=== PATIENT | female | born 1945 | race Caucasian/White ===

== ENCOUNTER → 2021-04-06 13:40 | Outpatient (CLI) | payer MEDICARE, SELFPAY ==
--- NOTE | ~2021-04-06 | XR_ITS ---
XR lumbar spine 2-3V 04/06/2021 14:03 Indication: Low back pain Procedure: 3 views lumbar spine Comparison: No prior studies for comparison. Findings: There is significant loss of disc height at all lumbar levels with prominent marginal osteo phytes anteriorly at L1-2 and L2-3. There is advanced multilevel facet hypertrophy. There is grade 1 degenerative spondylolisthesis at L4-5. Mild levoscoliosis. No acute fracture or traumatic malalignme nt. Impression: 1: Severe lumbar spondylosis with levoscoliosis. Reviewed, dictated and finalized at location B. RAL NEUROLOGIST Impression: 1: Severe lumbar spondylosis with levoscoliosis.
== END ==
PROVIDERS: PCP Emergency Medicine; Visit Provider Emergency Medicine
DX: R29.898 Other symptoms and signs involving the musculoskeletal system (principal); M54.50 Low back pain, unspecified; M47.816 Spondylosis without myelopathy or radiculopathy, lumbar region; M41.86 Other forms of scoliosis, lumbar region
CPT/HCPCS: 72100

== ENCOUNTER → 2021-04-30 10:41 | Outpatient (CLI) | payer MEDICARE, SELFPAY ==
--- NOTE | ~2021-04-30 | MR_ITS ---
EXAMINATION: MR lumbar spine wo con DATE: 04/30/2021 11:14 INDICATION: Lumbar degenerative disc disease. Right-sided low back pain. TECHNIQUE: Magnetic resonance imaging (MRI) of the lumbar spine was performed without intravenous con trast. Sequences included sagittal T2-weighted FSE, sagittal T2-weighted FS FSE, sagittal T1-weighted FSE, and axial T2-weighted FSE. COMPARISON: Lumbar spine radiograph 04/06/2021 FINDINGS: There is 10 degrees levocurvature of lumbar spine. There is 3 mm retrolisthesis of L2 on L3 . Vertebral body heights are normal. There is severely decreased disc height at T12-L1, moderately de creased disc height at L1-L2, severely decreased disc height at L2-L3, mildly decreased disc height a t L3-L4, and severely decreased disc height at L4-L5 and L5-S1. The distal spinal cord signal intensi ty is normal. The conus medullaris is at L1-L2. The following disc levels are specifically discussed: T12-L1: The disc is bulging. There is mild bilateral facet joint osteoarthritis. There is no neural f oraminal stenosis. There is mild central canal stenosis. L1-L2: The disc is bulging. There is mild bilateral facet joint osteoarthritis. There is mild bilater al neural foraminal stenosis. There is mild central canal stenosis. L2-L3: The disc is bulging and has an annular fissure. There is mild bilateral facet joint osteoarthr itis. There is moderate bilateral neural foraminal stenosis. There is mild central canal stenosis. L3-L4: The disc is bulging and has an annular fissure. There is severe bilateral facet joint osteoart hritis. There is mild bilateral neural foraminal stenosis. There is mild central canal stenosis. L4-L5: The disc is bulging and has an annular fissure. There is severe bilateral facet joint osteoart hritis. There is mild bilateral neural foraminal stenosis. There is mild central canal stenosis. L5-S1: The disc is bulging and has an annular fissure. There is severe bilateral facet joint osteoart hritis. There is moderate bilateral neural foraminal stenosis. There is mild central canal stenosis. IMPRESSION: 1. Severe lumbar spondylosis. 2. Lumbar levoscoliosis. Reviewed, dictated and finalized at location A.
== END ==
PROVIDERS: PCP Emergency Medicine; Visit Provider Nurse Practitioner Family
DX: M51.36 Other intervertebral disc degeneration, lumbar region (principal); M47.816 Spondylosis without myelopathy or radiculopathy, lumbar region; M41.86 Other forms of scoliosis, lumbar region
CPT/HCPCS: 72148

== ENCOUNTER 2021-05-17 14:30 | Outpatient (RCR) | payer MEDICARE, SELFPAY ==
--- NOTE | 2021-04-20 16:59 | PTOPEVAL ---
PHYSICAL THERAPY INITIAL EVALUATION. Thank you for referring Carmina Vasquez to [facility] [place] [facility] The patient is scheduled to be seen for therapy? 2x/week for 4 weeks. Please review, sign, date and return this plan of care JACKELINE. I agree with and certify that the following plan of care is medically necessary. Referring Physician Date Attending Provider: Blair Galo MD *PT Outpatient Evaluation Start: 04/20/21 Evaluation Information Diagnosis lumbar spondylolysis Onset chronic Subjective Information Pt states while her back does Query Text:As Reported By Patient/ hurt, her balance has causer Family her more difficulty while walking. She states she fell 02/10/21 and her back and balance has been bothering her more since then. She states while she is walking she will feel very weak, if she stops to rest she can prevent her legs from buckling but states if she continues that her legs will start to shake and give out on her. She has since noticed the warning signs before she falls and is able to find a chair before she falls. She states the feeling in her legs is hallow . Pt states she has fallen 2 times in the last 6 months. She states she does not feel dizzy or off balance. Pain Assessment Right Lower Back Reported Pain Level 4 Pain Description Aching,Dull Pain Frequency Chronic Lowest Pain Intensity 0 Greatest Pain Intensity 8 Pain Aggravating Factors Bending,Lifting,Walking Lumbar ROM Lumbar Flexion Active Floor Lumbar Extension (0-40) 25 Lateral Flexion Finger tips to lateral knee Query Text:Active Hands to: joint bilaterally Lateral Rotation Right (0-45) 30 Lateral Rotation Left (0-45) 40 Lumbar ROM 75% of Normal Lower Extremity Range of Motion General Lower Extremity Range of Motion WFL/Left,WFL/Right Lower Extremity Muscle Strength Testing Gross Lower Extremity Strength L LE grossly 4+/5 R Hip 4/5 R knee 3+/5 R ankle 4-/5 L tandem: 30s
--- NOTE | 2021-05-17 16:18 | PTOPEVAL ---
PHYSICAL THERAPY PROGRESS REPORT AND DISCHARGE NOTE. Thank you for referring Carmina Vasquez to [facility].? The patient is to be discharged from skilled physical therapy services at this time. Please review, sign, date and return this plan of care JACKELINE. I agree with and certify that the following plan of care is medically necessary. Referring Physician Date Attending Provider: Blair Galo MD Evaluation Information Diagnosis lumbar spondylolysis Onset chronic Subjective Information Pt states she has a back brace Query Text:As Reported By Patient/ pain management gave her and Family she has been wearing this on and off every 2 hours. Pt states she feels the most weakness in her legs when she gets out of a car, she states standing for a moment prior to walking helps to relieve this feeling. Pt reports she does not trust her knees initially when standing, but this odd sensation passes quickly. Pt reports improved focus on her safety and keeping her core tight. Pain Assessment Right Lower Back Reported Pain Level 0 Greatest Pain Intensity 4 Lumbar ROM Lumbar Flexion Active Floor Lumbar Extension (0-40) 35 Lateral Flexion Finger tips to lateral knee Query Text:Active Hands to: joint bilaterally Lateral Rotation Right (0-45) 45 Lateral Rotation Left (0-45) 45 Lumbar ROM 75% of Normal Lower Extremity Range of Motion General Lower Extremity Range of Motion WFL/Left,WFL/Right Lower Extremity Muscle Strength Testing Gross Lower Extremity Strength B LE grossly 4+/5 L tandem: 30s R tandem: 30s L SLS: 14s R SLS: 4s Balance Assessment Buchanan Balance Assessment [place]CHA[place]N Balance Evaluation Total Score (/56 52/56 Gait Assessment 2 Minute Walk Total Distance Walked (feet) 345 2 Minute Walk Gait Speed Score (feet/sec 2.87 2 Minute Walk Test Comments Pt states she has started walking slower than usual as she has increased her focus on her core stability and posture PT Clinical Summary Carmina presents to therapy today for her progress report following 8 visits of therapy to treat
== END 2021-05-18 15:13 | disposition home or self-care (01) ==
LOC: ANHPT 14:30
PROVIDERS: PCP Emergency Medicine; Referring Provider Emergency Medicine; Visit Provider Emergency Medicine
DX: M43.06 Spondylolysis, lumbar region (principal); M47.816 Spondylosis without myelopathy or radiculopathy, lumbar region
CPT/HCPCS: 97110; 97112; 97161; 97530

== ENCOUNTER 2023-04-26 08:33 | Inpatient (IN) | payer MEDICARE, SELFPAY ==
[2023-04-26] VITALS (16 sets, daily range): BP systolic 107–147; BP diastolic 44–63; PULSE 64–83; RESP 14–19; TEMP 36.9–38.2; O2SAT 96–99; BMI 19.9
--- NOTE | ~2023-04-26 | XR_ITS ---
EXAMINATION: XR chest 2V DATE: 04/26/2023 09:24 INDICATION: Weakness. Nausea. TECHNIQUE: Frontal and lateral views of the chest were obtained on 3 radiographs. COMPARISON: None. FINDINGS: There is no pneumonia, pleural effusion, or pneumothorax. The heart size is normal. There i s mild pectus excavatum. IMPRESSION: 1. No acute cardiopulmonary disease. Reviewed, dictated and finalized at location A.
--- NOTE | 2023-04-26 08:43 | ECG_ITS ---
Measurements Intervals [place] Rate: 70 P: 69 LA: 146 QRS: -16 QRSD: 98 T: 118 QT: 438 QTc: 475 Interpretive Statements SINUS RHYTHM POSSIBLE LEFT ATRIAL ENLARGEMENT INCOMPLETE RIGHT BUNDLE BRANCH BLOCK\ CONSIDER INFERIOR INFARCT, AGE INDETERMINATE ST-T WAVE ABNORMALITY IN ANTEROLAT/HIGH LAT LEADS- CONSIDER ISCHEMIA ABNORMAL ECG NO PREVIOUS ECG AVAILABLE FOR COMPARISON Electronically Signed On 04-26-2023 9:07:30 CDT by Yovanny Terry D.O.
[2023-04-26 09:04] LABS: Hematocrit 38.4 % (37.0-47.0); Hemoglobin 12.9 g/dL (12.0-15.0); Mean Corpuscular HGB Conc 33.6 g/dl (32-36); Mean Corpuscular Hemoglobin 32.1 pg (26-34); Mean Corpuscular Volume 95.5 fl (80-100); Mean Platelet Volume 10.2 fl (7.4-10.4); Platelet Count Result 239 k/mm3 (150-375); Red Blood Count 4.02 M/mm3 (4.2-5.4); Red Cell Distribution Width 14.6 % (11.5-14.5)
[2023-04-26 09:15] LABS: Appearance Urine Clear (Clear); Bacteria Urine None Seen /hpf; Bilirubin Urine Negative (Negative); Blood Urine Negative (Negative); Color Urine Yellow (Yellow); Glucose Urine UA Negative (Negative); Ketones Urine Negative (Negative); Leukocyte Esterase Ur Negative LEU/UL (Negative); Nitrate Urine Negative (Negative); Protein Urine 1+ mg/dL (Negative); Specific Grav Ur 1.011 (1.001-1.035); Squamous Epithelial Cell Urine None Seen /hpf (Few); Urobilinogen Urine 0.2 mg/dL (<2.0); WBC Urine 0-5 /hpf (0-3)
[2023-04-26 09:17] LABS: Alanine Aminotransferase 465 U/L (6-35); Albumin Level 3.4 g/dL (3.5-5.1); Alkaline Phosphatase 108 U/L (38-126); Anion Gap 3 mmol/L (8-16); Bilirubin,Total 0.7 mg/dL (0.2-1.3); Blood Urea Nitrogen 16 mg/dL (7-17); Calcium 8.4 mg/dL (8.4-10.2); Carbon Dioxide 26 mmol/L (22-30); Chloride 105 mmol/L (98-107); Estimated CRCL calculation 32 ml/min; Estimated Glomerular Filt Rate 54; Glucose 107 mg/dL (65-110); Potassium 3.4 mmol/L (3.4-5.0); Sodium 134 mmol/L (137-145)
[2023-04-26 09:21] LABS: Band Neutrophils Percent 9 % (0-6); Lymphocytes Absolute Manual 1.17 K/mm3 (1.1-4.5); Monocytes Absolute Manual 0.26 K/mm3 (0.1-0.90); Monocytes Percent Manual 2 % (3-9); Neutrophils Absolute Manual 11.57 K/mm3 (1.7-7.2); Neutrophils Percent Manual 80 % (46-73); Platelet Estimate Adequate (Adequate); Schistocytes None Seen; Total Cells Counted 100
[2023-04-26 09:28] LABS: Prothrombin Time 13.1 Seconds (11.1-14.7)
[2023-04-26 09:29] LABS: Partial Thromboplastin Time 24.5 Seconds (22.3-36.8)
[2023-04-26 09:38] LABS: Aspartate Amino Transferase 948 U/L (14-36)
[2023-04-26 09:40] LABS: Influenza A QL RT-PCR Negative (Negative); Influenza B QL RT-PCR Negative (Negative); RSV RNA, RT-PCR Negative (Negative); SARS-CoV-2 RNA PCR Negative (Negative)
[2023-04-26 09:41] LABS: Add Urine Microscopic? YES
[2023-04-26 09:50] LABS: NT Pro B Type Natriuretic Pept 2430 pg/mL (19.9-100); Troponin I 0.369 ng/mL (0.000-0.034)
--- NOTE | 2023-04-26 10:15 | ED.NAVMDI ---
HPI - Nausea/Vomiting/Diarrhea General Chief complaint: Nausea/Vomiting/Diarrhea Stated complaint: N/V Time Seen by Provider: 04/26/23 08:46 History of Present Illness HPI Narrative: Patient is a 77-year-old female who presents ER with sudden onset weakness over last 2 days. Associated with some nausea and vomiting that occurred throughout the night. No fevers but does have chills and fatigue. Denies chest pain or chest heaviness. She is without any shortness of breath. Patient does report that over last month or so she will get some weakness in her legs several cause her to fall. No recent injury. Related Data Allergies Allergy/AdvReac Type Severity Reaction Status Date / Time Ejvejye-JOT-BdL Reductase Allergy Unknown unknown Verified 01/17/23 11:23 Inhibitor [Kqkfvwd-Pip-Msu Reductase Inhibitor] Review of Systems Review of Systems: All systems reviewed & are unremarkable except as noted in HPI and below Constitutional: Constitutional: Reports chills, Reports fatigue, Denies fever(s) and Reports weakness ENT: Reports system reviewed and no additional complaints, except as documented Cardiovascular: Cardiovascular: Reports no additional cardiovascular complaints Respiratory: Respiratory: Reports no additional respiratory complaints Genitourinary: Genitourinary: Reports no additional female genitourinary complaints [facility] Past Medical History Medical History Adult hypothyroidism Bilateral leg cramps Chronic back pain Depression DM w/o complication type II Elevated blood pressure reading without diagnosis of hypertension Fatigue Hyperglycemia Other and unspecified hyperlipidemia Other screening mammogram Screening cholesterol level Vitamin D deficiency Family History Family History Mother Cerebrovascular accident Father Acute myocardial infarction Social History Social History Years smoked: 60 Smoking status: Current every day smoker Tobacco type: cigarettes Second hand tobacco smoke exposure: Yes Smoking end date: 02/13/11 Alcohol intake: current Drinks per week: 2 Substance use: never Substance use type: does not use Do You Feel Safe in your Home?: Yes Lack of Transportation: YES Lack of Food: Never True Current Housing: I Have Housing Concerned About Future Housing: No Difficulty Paying Gas/Electric Bills: No Difficulty Paying for Meds: No Currently Unemployed: No Education: Bachelor's Degree Difficulty w/ Childcare or Family Care: No Spiritual care concerns: No Exam Narrative: GENERAL: Well-appearing, well-nourished, and in no acute distress. HEAD: Normocephalic, atraumatic. ENT: Mucous membranes moist. NECK: Supple. CHEST: Clear to auscultation. No respiratory distress. HEART: Regular rate and rhythm. Harsh murmur heard in all quadrants. Normal peripheral pulses. ABDOMEN: Soft, nontender, nondistended. EXTREMITIES: Normal range of motion. No edema. SKIN: Warm, dry, no rash. NEURO: Alert and oriented x3. PSYCH: Normal mood and affect. Course Course Emergency Course: Patient with abnormal EKG and elevated troponin. Discussed non ST-elevation NH diagnosis with patient and family. Additionally, I have reviewed the labs and EKG with Cardiology. Patient will be started on heparin and also be admitted to the hospitalist service. Mild transaminitis which may be reflective of right-sided heart failure. After discussing this with the cardiology it was recommended the temp some diuresis especially with elevated BNP. Vital Signs Vital signs: Vital Signs Temperature 100.0 F H 04/26/23 08:40 Pulse Rate 73 04/26/23 08:40 Respiratory Rate 16 04/26/23 08:40 Blood Pressure 130/57 L 04/26/23 08:40 Pulse Oximetry 97 04/26/23 08:40 Oxygen Delivery
[2023-04-26] MEDS: FUROSEMIDE INJ 40 MG/4 ML VIAL IV PUSH (11:07)
[2023-04-26] MEDS: HEPARIN SODIUM 5,000 UNITS/ML VIAL 3000 UNITS IV PUSH (11:09)
[2023-04-26] MEDS: ASPIRIN 81 MG CHEWABLE TABLET 324 MG PO (11:10)
[2023-04-26] MEDS: HEPARIN SOD/D5W 100 UNITS/ML 25,000 UNITS/250 ML BAG 6 UNITS IV CONT (11:13)
--- NOTE | 2023-04-26 12:01 | ECG_ITS ---
Measurements Intervals [place] Rate: 71 P: 68 VT: 155 QRS: -18 QRSD: 94 T: 125 QT: 432 QTc: 472 Interpretive Statements SINUS RHYTHM POSSIBLE LEFT ATRIAL ENLARGEMENT INCOMPLETE RIGHT BUNDLE BRANCH BLOCK INFERIOR INFARCT, AGE INDETERMINATE ST-T WAVE ABNORMALITY IN ANTEROLAT/HIGH LAT LEADS- CONSIDER ISCHEMIA ABNORMAL ECG COMPARED TO ECG 04/26/2023 08:45:53 NO SIGNIFICANT CHANGES Electronically Signed On 04-26-2023 12:21:53 CDT by Yovanny Terry D.O.
[2023-04-26] MEDS: ACETAMINOPHEN 325 MG TABLET 650 MG PO (12:05)
--- NOTE | 2023-04-26 12:30 | PC.NURSE ---
This patient, Carmina Vasquez, was received from ED on 04/26/23 at 1225. Patient/family oriented to unit policies and routines, Patient belongings secured in patient room cabinet
--- NOTE | 2023-04-26 13:03 | PM.IMHP ---
H&P: HPI History of Present Illness Date/Time: 04/26/23 13:03 Chief Complaint: N/V, Weakness Narrative: 77 y/o F presents here with N/V and weakness with PMH of hypothyroidism, depression, DM2, elevated BP without HTN diagnosis, and vitamin d deficiency. Patient presents here from home? for evaluation of nausea, vomiting, and weakness. Initially developed lower extremity weakness around 10:30 pm last night (04/24). Patient then elda got up to use the restroom when her legs again gave out and she sustained a ground-level fall. No injuries post-fall, no LOC, no syncope. Patient was then unable to sleep after the fall. Patient has chronic leg cramping, that historically occurs more so at night, that started after the fall and prevented her from sleeping. When patient got up in the morning, she fell again when walking to the bathroom. Denies any chest pain, palpitations, syncope, sense of doom, fatigue, diaphoresis, or GERD. Patient later drank water that morning and experiencing nausea and vomiting. Denies RUQ pain, LUQ pain, and upper back pain. Patient drinks a small splash of Mickie's in her coffee daily. Initial VS at presentation: 100.0 F, HR 73, RR 16, 130/57, 97% on RA. ED workup showed: WBC 13, no anemia, creatinine 1.0, AST 948, ALT 465, troponin 0.369 -> 8.99, BNP 2430, UA unremarkable, viral PCR negative, and CXR unremarkable. Review of Systems Review of Systems: All systems reviewed & are unremarkable except as noted in HPI and below [facility] Past Medical History Medical History Adult hypothyroidism Bilateral leg cramps Chronic back pain Depression DM w/o complication type II Elevated blood pressure reading without diagnosis of hypertension Fatigue Hyperglycemia Other and unspecified hyperlipidemia Other screening mammogram Screening cholesterol level Vitamin D deficiency Family History Family History Mother Cerebrovascular accident Father Acute myocardial infarction Social History Social History Years smoked: 60 Smoking status: Current every day smoker Tobacco type: cigarettes Second hand tobacco smoke exposure: Yes Smoking end date: 02/13/11 Alcohol intake: current Drinks per week: 2 Substance use: never Substance use type: does not use Do You Feel Safe in your Home?: Yes Lack of Transportation: YES Lack of Food: Never True Current Housing: I Have Housing Concerned About Future Housing: No Difficulty Paying Gas/Electric Bills: No Difficulty Paying for Meds: No Currently Unemployed: No Education: Bachelor's Degree Difficulty w/ Childcare or Family Care: No Spiritual care concerns: No Meds Home Medications and Allergies Home Medications Medication Instructions Recorded Confirmed Type levothyroxine 100 mcg tablet See Rx Instructions .Route 01/10/23 04/26/23 Rx .COMPLEX #90 tabs sertraline 50 mg tablet See Rx Instructions .Route 01/10/23 04/26/23 Rx .COMPLEX #90 tabs Allergies Allergy/AdvReac Type Severity Reaction Status Date / Time Fbjqtgs-YPY-BcF Reductase Allergy Unknown unknown Verified 01/17/23 11:23 Inhibitor [Bijrfno-Sgl-Yui Reductase Inhibitor] Vital Signs Vital Signs - 24 hr 04/26/23 08:40 04/26/23 08:59 04/26/23 09:01 Temperature 100.0 F H Pulse Rate 73 80 75 Respiratory Rate 16 Blood Pressure 130/57 L 124/53 L 118/56 L Pulse Oximetry 97 Oxygen Delivery Room Air 04/26/23 09:01 04/26/23 09:00 04/26/23 12:05 Temperature 100.8 F H Pulse Rate 83 73 Respiratory Rate 16 Blood Pressure 111/51 L 118/56 L Pulse Oximetry 96 Oxygen Delivery 04/26/23 09:30 04/26/23 10:30 04/26/23 11:30 Temperature 100.6 F H 100.3 F H Pulse Rate 64 65 66 Respiratory Rate 16 16 16 Blood Pressure 120/57 L 124/58 L 107/44 L Pulse Oxim
[2023-04-26 13:50] LABS: Lipase 69 U/L (23-300)
[2023-04-26 14:10] LABS: Cholesterol 166 mg/dL (0-200); HDL Direct 57 mg/dL; Triglycerides 85 mg/dL (<150)
[2023-04-26 14:20] LABS: LDL Cholesterol Direct 97 mg/dL
--- NOTE | 2023-04-26 14:25 | PM.CNCAR ---
Assessment and Plan Assessment and plan (1) NSTEMI (non-ST elevated myocardial infarction): Code(s): I21.4 - Non-ST elevation (NSTEMI) myocardial infarction Status: Acute Assessment and Plan: Patient presents with unusual symptoms such as acute onset weakness in her legs, nausea with emesis but without chest pain, shortness of breath or otherwise recent decline in activity tolerance. She has no history of CAD. Nonetheless, initial troponin mildly elevated however significantly increased to 8.99 without clear alternative explanation consistent with NSTEMI. Her ECG was significantly abnormal with ischemic changes yet patient feels well at this time with no complaints. Advised left heart catheterization for delineation of coronary anatomy. Discussed at length risk versus benefit of invasive angiography. Patient agrees. Discussed with Dr. Lerner of Interventional Cardiology. Continue heparin infusion, aspirin 81 mg daily. Given significant LFT elevations and reported history of statin intolerance unable to initiate statin therapy at this time unfortunately. Will consider rechallenge once LFTs have further improved. Advised patient should she have recurrent nausea, emesis or new development of chest pain or short of breath to notify us immediately. Continue telemetry IMU status. Advised patient should she have recurrence of symptoms refractory to medical therapy and or significant clinical change and or hemodynamic instability patient be taken urgently to the cardiac catheterization lab. Given elevated likelihood of serious potential life-threatening complications in setting of acute NSTEMI patient will need to remain hospitalized with further observation and invasive management as above. -obtain 2D echocardiogram today. Recommendation follow-up review. Patient is not clinically in decompensated heart failure despite elevation in BNP. -all questions answered to satisfaction of the patient, her , and son at bedside. Monitor for bleeding on heparin infusion. Continue to trend troponins. (2) Abnormal LFTs: Code(s): R79.89 - Other specified abnormal findings of blood chemistry Status: Acute Assessment and Plan: Significant elevations of AST greater than ALT in which this pattern can be seen with acute myocardial infarction. However, the degree of elevation thus far higher than what we expected generally. Given patient presentation low-grade fever and abnormal LFTs, consider right upper quadrant ultrasound although her exam is unremarkable and she is asymptomatic at this time. She reports she drinks one shot of Mickie's with morning coffee daily only. (3) Systolic murmur: Code(s): R01.1 - Cardiac murmur, unspecified Status: Acute Assessment and Plan: Systolic murmur late peaking suggestive at least moderate to moderate to severe aortic stenosis. 2D echocardiogram pending. Recommendation to follow. We discussed this at length. Patient is unaware of any valvular problems and denies being told of a murmur until today. (4) Type 2 diabetes mellitus: Code(s): E11.9 - Type 2 diabetes mellitus without complications Status: Acute Assessment and Plan: Management per primary service. Patient reports diet and activity controlled without medical therapy. (5) Tobacco abuse: Code(s): Z72.0 - Tobacco use Status: Acute Assessment and Plan: Ongoing tobacco abuse discussed. Patient advised she must immediately in absolutely quit smoking. states she has been trying to get adequate for over 50 years. (6) Statin intolerance: Code(s): Z78.9 - Other specified health status Status: Acute Assessment and Plan: Will clarify a complication, however, strongly advised if able to tolerate once LFTs have normalized. Recommendation to follow pending clinical status. Alternatives will then be discussed as appropriate. History of Present Illness Histor
[2023-04-26 14:45] LABS: Glucose Point of Care 119 mg/dl (65-105)
--- NOTE | 2023-04-26 15:00 | ECHO_ITS ---
Patient Info Name: Carmina Vasquez Age: 77 years : 1945 Gender: Female Ht: 63 in Wt: 112 lbs BSA: 1.50 m2 HR: 76 bpm BP: 107 / 67 mmHg Heart Rhythm: Sinus Rhythm Technical Quality: Fair Exam Date: 04/26/2023 4:04 PM Exam Location: Echo Lab Patient Status: Inpatient Admit Date: 04/26/2023 Staff Ordering Physician: Finesse Coronel MD Business Director: Attending Provider: Tomas Steve MD Referring Physician: Homer CHESTER; Exam Type: CA echo doppler color flow Study Info Indications I21.4 - Non-ST elevation (NSTEMI) myocardial infarction Complete two-dimensional, color flow and Doppler transthoracic echocardiogram is performed. Summary 1. Complete two-dimensional, color flow and Doppler transthoracic echocardiogram is performed. 2. Left ventricular chamber dimension is normal. 3. Left ventricular systolic function is normal, estimated at 65-70%. 4. There is moderately increased left ventricular wall thickness. 5. The left ventricular diastolic function is grade I diastolic dysfunction. 6. LVOT gradient of 30mmHg with Valsalva. 7. Right ventricular systolic function is normal. 8. Left atrial chamber dimension is mildly enlarged. 9. There is moderate aortic valve calcification. 10. There is mild to moderate aortic valve stenosis with a peak velocity of 267 cm/s, mean gradient of 14 mmHg, and aortic valve area of 1.5 cm2. 11. There is moderate mitral valve regurgitation. 12. There is mild tricuspid valve regurgitation. Left Ventricle LVOT gradient of 30mmHg with Valsalva. Left ventricular chamber dimension is normal. Left ventricular systolic function is normal, estimated at 65-70%. There is moderately increased left ventricular wall thickness. The left ventricular diastolic function is grade I diastolic dysfunction. Right Ventricle Right ventricular chamber dimension is normal. Right ventricular systolic function is normal. Left Atria Left atrial chamber dimension is mildly enlarged. Right Atria Right atrial chamber dimension is normal. Atrial Septum Intact interatrial septum visualized by color flow imaging. Aortic Valve The aortic valve is probable trileaflet. There is mild to moderate aortic valve stenosis with a peak velocity of 267 cm/s, mean gradient of 14 mmHg, and aortic valve area of 1.5 cm2. There is no aortic valve regurgitation. There is moderate aortic valve calcification. Pulmonic Valve The pulmonic valve is not well visualized. Mitral Valve The mitral valve has thickened leaflets. There is moderate mitral valve regurgitation. Tricuspid Valve There is mild tricuspid valve regurgitation. Pericardium/Pleural There is no pericardial effusion. Inferior Vena Cava Normal inferior vena cava with <50% collapse upon inspiration consistent with elevated right atrial pressure, 8 mmHg. Aorta The aortic root size at the sinus of Valsalva is normal. Left Ventricular Outflow Tract Name Value Normal LVOT 2D LVOT Diameter 1.9 cm LVOT Doppler LVOT Peak Gradient 9 mmHg LVOT Mean Gradient 6 mmHg LVOT VTI 34 cm LVOT VTI/AV VTI Ratio 0.5 LVOT S
--- NOTE | 2023-04-26 15:52 | PC.NURSE ---
Notified cardiology pathology secretary @[phone] of change in timing for ECHO per Dr. Sanchez request. Unable to confirm that it will be done this evening instead of tomorrow. Plan is for cardiac cath tomorrow see cardiology progress note
[2023-04-26 17:42] LABS: Partial Thromboplastin Time 64.8 Seconds (22.3-36.8)
[2023-04-26] MEDS: HEPARIN SODIUM 5,000 UNITS/ML VIAL 2000 UNITS IV PUSH (17:46)
[2023-04-27] VITALS (16 sets, daily range): BP systolic 96–172; BP diastolic 50–120; PULSE 65–76; RESP 13–22; TEMP 36.6–37.1; O2SAT 90–100
[2023-04-27 00:40] LABS: Partial Thromboplastin Time 91.9 Seconds (22.3-36.8)
[2023-04-27] MEDS: LEVOTHYROXINE SODIUM 100 MCG TABLET PO (07:00)
[2023-04-27 07:20] LABS: Basophils Absolute Auto 0.1 K/mm3 (0.0-0.1); Basophils Percent Auto 0.3 % (0.2-1.2); Eosinophils Absolute Auto 0.1 K/mm3 (0-0.3); Eosinophils Percent Auto 0.5 % (0-4.4); Hematocrit 38.4 % (37.0-47.0); Hemoglobin 13.1 g/dL (12.0-15.0); Immature Granulocyte Absolute 0.22 K/mm3 (0.00-0.031); Lymphocytes Absolute Auto 1.41 K/mm3 (0.9-3.2); Lymphocytes Percent Auto 6.4 % (18.3-44.2); Mean Corpuscular HGB Conc 34.1 g/dl (32-36); Mean Corpuscular Hemoglobin 31.9 pg (26-34); Mean Corpuscular Volume 93.4 fl (80-100); Mean Platelet Volume 10.8 fl (7.4-10.4); Monocytes Absolute Auto 1.1 K/mm3 (0.1-0.6); Neutrophils Absolute Auto 19.3 K/mm3 (1.3-6.7); Neutrophils Percent Auto 86.8 % (45.5-73.1); Platelet Count Result 216 k/mm3 (150-375); Red Blood Count 4.11 M/mm3 (4.2-5.4); Red Cell Distribution Width 14.6 % (11.5-14.5); White Blood Count 22.2 K/mm3 (4.5-10.0)
[2023-04-27 07:32] LABS: Alanine Aminotransferase 304 U/L (6-35); Albumin Level 3.5 g/dL (3.5-5.1); Alkaline Phosphatase 110 U/L (38-126); Anion Gap 4 mmol/L (8-16); Aspartate Amino Transferase 277 U/L (14-36); Bilirubin,Total 0.6 mg/dL (0.2-1.3); Blood Urea Nitrogen 21 mg/dL (7-17); Calcium 8.1 mg/dL (8.4-10.2); Carbon Dioxide 27 mmol/L (22-30); Chloride 100 mmol/L (98-107); Estimated CRCL calculation 37 ml/min; Estimated Glomerular Filt Rate > 60; Glucose 93 mg/dL (65-110); Magnesium 2.2 mg/dL (1.6-2.3); Potassium 3.6 mmol/L (3.4-5.0); Sodium 131 mmol/L (137-145)
[2023-04-27 07:39] LABS: Partial Thromboplastin Time 59.1 Seconds (22.3-36.8)
[2023-04-27] MEDS: HEPARIN SODIUM 5,000 UNITS/ML VIAL 2000 UNITS IV PUSH (07:49)
[2023-04-27 08:37] LABS: Hemoglobin A1C 5.6 % (<5.7)
[2023-04-27] MEDS: ASPIRIN 81 MG ENTERIC TABLET PO (08:46)
[2023-04-27] MEDS: PANTOPRAZOLE SODIUM IV 40 MG VIAL IV PUSH (08:46)
--- NOTE | 2023-04-27 13:02 | WPDCNINT ---
Assessment and Plan Assessment and plan (1) Non-ST elevated myocardial infarction: Code(s): I21.4 - Non-ST elevation (NSTEMI) myocardial infarction Status: Acute Assessment and Plan: Patient admitted with non STEMI. Initially treated with heparin aspirin but statin was held due to she elevated liver enzymes. Underwent cardiac catheterization today which showed Echocardiogram as below Continue aspirin heparin infusion Continue intra-aortic balloon pump with ICU monitor. ICU telemetry monitoring Plan to transfer patient to tertiary facility for CABG. Patient is aware and has consented to transfer after discussion risks and benefits with the intervention flavoring machine operator. Case discussed with Dr. Lerner Check electrolytes P.r.n. nitroglycerin Echo 04/25 Summary ? 1. Complete two-dimensional, color flow and Doppler transthoracic echocardiogram is performed. ? 2. Left ventricular chamber dimension is normal. ? 3. Left ventricular systolic function is normal, estimated at 65-70%. ? 4. There is moderately increased left ventricular wall thickness. ? 5. The left ventricular diastolic function is grade I diastolic dysfunction. ? 6. LVOT gradient of 30mmHg with Valsalva. ? 7. Right ventricular systolic function is normal. ? 8. Left atrial chamber dimension is mildly enlarged. ? 9. There is moderate aortic valve calcification. ? 10. There is mild to moderate aortic valve stenosis with a peak velocity of 267 cm/s, mean gradient of 14 mmHg, and aortic valve area of 1.5 cm2. ? 11. There is moderate mitral valve regurgitation. ? 12. There is mild tricuspid valve regurgitation. (2) Transaminitis: Code(s): R74.01 - Elevation of levels of liver transaminase levels Status: Acute Assessment and Plan: Could be secondary to AL Normal lipase, bilirubin and alkaline phosphatase AST and ALT are improving Since patient is being transferred to tertiary facility and already has been accepted at [facility]. I will defer further evaluation to the accepting physician and facility. Continue to hold statin (3) Type 2 diabetes mellitus: Code(s): E11.9 - Type 2 diabetes mellitus without complications Status: Acute Assessment and Plan: npo SSI (4) Coronary disease: Code(s): I25.10 - Atherosclerotic heart disease of [place] coronary artery without angina pectoris Status: Acute Assessment and Plan: See above (5) Angina at rest: Code(s): I20.89 - Other forms of angina pectoris Status: Acute Assessment and Plan: See above Plan DVT prophylaxis -heparin infusion Stress ulcer prophylaxis -Protonix Nutrition - npo Code Status - Full Code Total Critical Care Time - 30minutes Due to a high probability of clinically significant, life threatening deterioration, the patient required my highest level of preparedness to intervene emergently and I personally spent this critical care time directly and personally managing the patient. This critical care time included obtaining a history; examining the patient; pulse oximetry; ordering and review of studies; arranging urgent treatment with development of a management plan; evaluation of patient's response to treatment; frequent reassessment; and discussions with other providers. It was exclusive of separately billable procedures and treating other patients and teaching time. Please see Assessment and Plan section and the rest of the note for further information on patient assessment and treatment Counselor Education Professor Consult Note Consult date: 04/27/23 Reason for consult: Cardiogenic shock, angina, coronary disease, non STEMI HPI: Carmina Vasquez is a 77 year old female with past medical history of hypothyroidism depression type 2 diabetes hypertension who was admitted on 04/25 with chief complaint of nausea vomiting and weakness. Workup in the ED showed WBC of 13 no anemia normal creatinine but elevated LFTs. BNP 2 430 chest x-ray unremarkab
--- NOTE | 2023-04-27 13:14 | WPDMODSED ---
Moderate Sedation Note-Pt Data Patient Data Diagnosis: NSTEMI Present Complaint: NSTEMI Procedure to be performed/Plan: Coronary angiography, left heart cath, +/- PCI Allergies Allergy/AdvReac Type Severity Reaction Status Date / Time Bjutjcl-OVE-CmL Reductase Allergy Unknown unknown Verified 01/17/23 11:23 Inhibitor [Cfirbkf-Tzk-Mls Reductase Inhibitor] Home Medications Medication Instructions Recorded Confirmed Type levothyroxine 100 mcg tablet See Rx Instructions .Route 01/10/23 04/26/23 Rx .COMPLEX #90 tabs sertraline 50 mg tablet See Rx Instructions .Route 01/10/23 04/26/23 Rx .COMPLEX #90 tabs Current Medications: Active Medications Acetaminophen (Acetaminophen 325 Mg Tablet) 650 mg PO Q4H PRN PRN Reason: Mild Pain (1-3) or Fever Last Admin: 04/26/23 12:05 Dose: 650 mg Hydrocodone Bitart/Acetaminophen (Hydrocodone/Acetaminophen (*Crx) 5-325 Mg Tablet) 1 tab PO Q4H PRN PRN Reason: Pain Rated 4-6 Aspirin (Aspirin 81 Mg Enteric Tablet) [facility] [place] Last Admin: 04/27/23 08:46 Dose: 81 mg Dextrose (Dextrose 50% 25 Gm/50 Ml Syringe) 12.5 gm IV PUSH PRN PRN; Protocol PRN Reason: Hypoglycemia Dextrose (Dextrose 50% 25 Gm/50 Ml Syringe) 12.5 gm IV PUSH PRN PRN; Protocol PRN Reason: Hypoglycemia Glucagon (Glucagon For Inj 1 Mg Vial) 1 mg IM PRN PRN; Protocol PRN Reason: Hypoglycemia Glucagon (Glucagon For Inj 1 Mg Vial) 1 mg IM PRN PRN; Protocol PRN Reason: Hypoglycemia Glucose (Glucose Oral Gel 15 Gm Of Glucse In 37.5 Gm Tube) 15 gm PO PRN PRN; Protocol PRN Reason: Hypoglycemia Glucose (Glucose Oral Gel 15 Gm Of Glucse In 37.5 Gm Tube) 15 gm PO PRN PRN; Protocol PRN Reason: Hypoglycemia Heparin Sodium (Porcine) (Heparin Sodium 5,000 Units/Ml Vial) 4,000 units IV PUSH PRN PRN PRN Reason: aPTT less than 55 seconds Heparin Sodium (Porcine) (Heparin Sodium 5,000 Units/Ml Vial) 2,000 units IV PUSH PRN PRN PRN Reason: aPTT 55 - 70 seconds Last Admin: 04/27/23 07:49 Dose: 2,000 units Heparin Sodium/Dextrose (Heparin Sodium/D5w 100 Units/Ml) 25,000 units in 250 mls @ 8 mls/hr IV CONT .Q24H MIRTHA; Protocol Last Titration: 04/27/23 07:50 Dose: 800 units/hr, 8 mls/hr Dextrose (Dextrose 5% 1,000 Ml) 1,000 mls @ 100 mls/hr IVPB PRN PRN; Protocol PRN Reason: Hypoglycemia Dextrose (Dextrose 5% 1,000 Ml) 1,000 mls @ 100 mls/hr IVPB PRN PRN; Protocol PRN Reason: Hypoglycemia Insulin Aspart (Insulin Aspart (*Bkc) 100 Units/Ml) 2 - 5 units SUB-Q Q6HR MIRTHA; Protocol Levothyroxine Sodium (Levothyroxine Sodium 100 Mcg Tablet) 100 mcg PO DAILY@0630 [facility] Last Admin: 04/27/23 07:00 Dose: 100 mcg Ondansetron HCl (Ondansetron Inj 4 Mg/2 Ml Vial) 4 mg IV PUSH Q4H PRN PRN Reason: Nausea Pantoprazole Sodium (Pantoprazole Sodium Iv 40 Mg Vial) 40 mg IV PUSH QAM [facility] Last Admin: 04/27/23 08:46 Dose: 40 mg Perflutren Lipid Microsphere (Perflutren Lipid Microspheres 1.5 Ml Vial Diluted To 10 Ml Total Volume) 0 ml IV PUSH ONCE PRN; Protocol PRN Reason: adequate visualization Stop: 04/29/23 10:49 Sedation/Anesthesia: No previous sedation/anesthesia problems (including family history). [facility] Past Medical History Medical History Adult hypothyroidism Bilateral leg cramps Chronic back pain Depression DM w/o complication type II Elevated blood pressure reading without diagnosis of hypertension Fatigue Hyperglycemia Other and unspecified hyperlipidemia Other screening mammogram Screening cholesterol level Vitamin D deficiency Family History Family History Mother Cerebrovascular accident Father Acute myocardial infarction Social History Social History Years smoked: 60 Smoking status: Current every day smoker Tobacco type: cigarettes Second hand tobacco smoke exposure: Yes Smoking end date:
--- NOTE | 2023-04-27 13:18 | WPDCARDPROC ---
Cardiac Cath Procedure Note Date of procedure:: 04/27/23 Performing physician:: CATHETERIZATION LABORATORY REPORT Procedure Date: 04/26/2022 Project Designer: Eitan Lerner M.D., [facility]? Referring Physician: Wolf Sanchez M.D. ? Anesthesia: Versed and Fentanyl were ordered and given in my presence at 10:47, procedure ended at 12:36. Supervision of nurse monitored moderate sedation with Versed and Fentanyl was provided for 109 minutes. Total of Versed 1mg and Fentanyl 75mcg were administered by the Track Broom Operator RN Ivette Bhatia. Pre-op Diagnosis: NSTEMI Post-op Diagnosis: 1. Two vessel coronary artery disease with significant mid LAD disease and significant proximal RCA disease. Attempted intervention on the LAD, however the more distal mid LAD stenosis was difficult to wire despite multiple attempts and we ended up shutting down the LAD distal to this lesion with no flow for some time. Patient had severe chest pain and EKG changes with this. We were able to regain flow back into the distal LAD with administration of IC NTG 400mcg. Angiographically, the LAD did not appear to be dissected. Possible plaque emboli to the distal LAD? To avoid further complications, we decided to abort intervention as we had re-established some flow to the distal LAD, ECG changes had resolved, and patient's chest pain was improving. Intraaortic balloon pump then placed. Discussed case with Dr. Kline, CT Surgeon at [facility], who accepted patient for CABG. 2. Elevated left ventricular end-diastolic pressure of 23mmHg Procedure(s): 1. Moderate sedation 2. Ultrasound-guided access of the right common femoral artery 3. Coronary angiography 4. Left heart cath 5. Attempted intervention of the LAD 6. IABP placement Access Site: Right common femoral artery Brief History and Clinical Indications: Patient is a 77-year-old female with tobacco dependence, diet-controlled diabetes mellitus, hypothyroidism who is referred for [facility] for NSTEMI. All risks, benefits and alternatives to left heart catheterization with or without percutaneous coronary intervention was discussed at length with the patient. Risk of complications including but not limited to bleeding, infection, arrhythmia, stroke, worsening kidney function, blood loss, groin hematoma, limb loss, emergency coronary artery bypass grafting, and even were discussed with the patient and all questions were answered. The patient understood and wished to proceed. Time out called, patient name, date of , medical record number, allergies, procedure performed, identify Project Designer, patient and staff member concurred with accurate data, procedure carried on. Findings: LEFT HEART CATHETERIZATION FINDINGS: 1. Left main: The left main coronary artery is widely patent without any significant obstructive disease. 2. Left anterior descending: The mid LAD has two significant lesions. At the bifurcation of the second septal branch, there is a significant 80-90% stenosis followed distally by a focal complex 99% stenosis. The first diagonal branch is a large caliber branch with moderate diffuse disease. 3. Left circumflex: The left circumflex artery has mild diffuse disease in the mid portion. OM branch has luminal irregularities. 4. Right coronary artery: The RCA is the dominant vessel. The proximal RCA has a 90-99% stenosis. The mid LAD has mild diffuse disease. The distal RCA has luminal irregularities. The RPDA and RCA has luminal irregularities. 5. Left ventricle: A. End-diastolic pressure 23mmHg. B. LV gram deferred. C. No significant gradient across aortic valve on catheter pullback. Description of Procedure: Informed consent signed and placed in the chart. Patient transferred to component lab tech room. Prepped and draped in usual sterile fashion. 2% lidocaine in right groin area. Micropuncture needle used to access right common femoral artery with Seldinger technique under fluoroscopic and
[2023-04-27 13:43] LABS: Anion Gap 8 mmol/L (8-16); Blood Urea Nitrogen 18 mg/dL (7-17); Calcium 7.4 mg/dL (8.4-10.2); Carbon Dioxide 22 mmol/L (22-30); Chloride 98 mmol/L (98-107); Estimated CRCL calculation 47 ml/min; Estimated Glomerular Filt Rate > 60; Glucose 83 mg/dL (65-110); Magnesium 2.1 mg/dL (1.6-2.3); Potassium 3.5 mmol/L (3.4-5.0); Sodium 128 mmol/L (137-145)
--- NOTE | 2023-04-27 14:05 | PM.PNCARD ---
Progress Note: A&P Assessment and Plan (1) Non-ST elevated myocardial infarction: Code(s): I21.4 - Non-ST elevation (NSTEMI) myocardial infarction Status: Acute Assessment and Plan: Patient presented with unusual symptoms of acute onset weakness in her legs, nausea with emesis but without chest pain, shortness of breath or otherwise recent decline in activity tolerance.? She has no history of CAD.? Nonetheless, initial troponin mildly elevated however the troponin levels significantly increased to 14 without clear alternative explanation consistent with NSTEMI.? Her ECG was significantly abnormal with ischemic changes with T-wave inversion in the anterolateral leads yet patient denied chest pain.? Advised left heart catheterization for delineation of coronary anatomy.? Echocardiogram shows LVEF 65-70%, moderately increased LV wall thickness. LVOT gradient of 30mmHg with Valsalva, mildly enlarged left atrium, mild-moderate , moderate MR, mild TR. Cardiac catheterization done today: 1. Two vessel coronary artery disease with significant mid LAD disease and significant proximal RCA disease. Attempted intervention on the LAD, however the more distal mid LAD stenosis was difficult to wire despite multiple attempts and we ended up shutting down the LAD distal to this lesion with no flow for some time. Patient had severe chest pain and EKG changes with this. We were able to regain flow back into the distal LAD with administration of IC NTG 400mcg. Angiographically, the LAD did not appear to be dissected. Possible plaque emboli to the distal LAD?? To avoid further complications, we decided to abort intervention as we had re-established some flow to the distal LAD, ECG changes had resolved, and patient's chest pain was improving. Intraaortic balloon pump then placed. Discussed case with Dr. Kline, CT Surgeon at [facility], who accepted patient for CABG. 2. Elevated left ventricular end-diastolic pressure of 23mmHg Patient transferred to ICU. IABP in place and functioning well. On Heparin drip. Upon my reassessment of patient in the ICU, she is feeling well at this time without any chest pain. Will start low dose NTG drip at 5mcg/min to keep her chest pain free. Continue ASA. Awaiting transfer to [facility]. I discussed the cath events, next steps and plan with the and son at bedside, all questions answered. (2) Abnormal LFTs: Code(s): R79.89 - Other specified abnormal findings of blood chemistry Status: Acute Assessment and Plan: Significant elevations of AST greater than ALT in which this pattern can be seen with acute myocardial infarction.? However, the degree of elevation thus far higher than what we expected generally.? Consider right upper quadrant ultrasound although her exam is unremarkable and she is asymptomatic at this time.? She reports she drinks one shot of Mickie's with morning coffee daily only. (3) Systolic murmur: Code(s): R01.1 - Cardiac murmur, unspecified Status: Acute Assessment and Plan: Systolic murmur late peaking suggestive of aortic stenosis, however, echocardiogram shows mild-moderate aortic stenosis. She odes have an LVOT gradient of 30mmHg with Valsalva however. (4) Type 2 diabetes mellitus: Code(s): E11.9 - Type 2 diabetes mellitus without complications Status: Acute Assessment and Plan: Patient reports diet and activity controlled without medical therapy. Hgb A1c is 5.6. (5) Tobacco abuse: Code(s): Z72.0 - Tobacco use Status: Acute Assessment and Plan: Ongoing tobacco abuse discussed.? Patient advised she must immediately in absolutely quit smoking.? states he has been trying to get her to stop for over 50 years. (6) Statin intolerance: Code(s): Z78.9 - Other specified health status Status: Acute Assessment and Plan: Strongly advised to take statin if able to tolerate once her LFTs have normalized.?
[2023-04-27] MEDS: NITROGLYCERIN/D5W 200 MCG/ML 50 MG/250 ML BTL IV CONT (14:13)
[2023-04-27] MEDS: POTASSIUM CHLORIDE 20 MEQ PACKET (FOR LIQUID) 40 MEQ PO (14:14)
[2023-04-27 14:28] LABS: Partial Thromboplastin Time 185.7 Seconds (22.3-36.8)
--- NOTE | 2023-04-27 15:12 | PM.TDS ---
Transfer Discharge Sum: Prov Provider Date of admission: 04/26/23 14:57 Primary care physician: Blair Galo MD Admitting clinician: Tomas Steve MD Attending physician on admission: Tomas Steve Consults: 04/26/23 Consult to Physician Routine Comment: Consulting Provider: Eitan Lerner Reason for consultation: nstemi Has provider been notified: Yes 04/27/23 Consult to Physician Routine Comment: Consulting Provider: Franck Hernandez Reason for consultation: icu transfer Has provider been notified: Yes Attending physician on discharge: Tomas Steve Discharging clinician: Tomas Steve Anticipated date of transfer: 04/27/23 Receiving physician/facility: Patient is being transferred to Dr. Kline, CT surgeon, at [facility] in [place], [place] for CABG and higher level of care. Patient condition on Transfer: Guarded yet stable DS: Admitting Diagnosis Discharge Date 04/27/2023: Admitting Diagnosis Assessment and plan (1) NSTEMI (non-ST elevated myocardial infarction): ?Code(s): I21.4 - Non-ST elevation (NSTEMI) myocardial infarction ?Status:?Acute ?Assessment and Plan: - EKG, initial:? Sinus rhythm, possible left atrial enlargement, incomplete RBBB, consider inferior infarct age indeterminate, ST-T-wave abnormality in anterior lateral/high leads. - EKG, repeat: Sinus rhythm, possible left atrial enlargement, incomplete RBBB, inferior infarct age indeterminate, ST-T-wave abnormality in anterior lateral/high leads. There are no significant changes when compared to the EKG done earlier today. - Troponin: 0.369 -> 8.990 -> 14.3 - ASA 324 given on 04/25 - SL nitro PRN - cardiology consulted, Ronald MORLEY. Plan for cardiac catheterization tomorrow, 04/26 Obtain echo Recommended starting statin therapy if tolerated and once LFTs have normalized start ASA 81 mg daily - started on heparin gtt on 04/25 - lipid panel ordered, will forgo statin therapy at this time due to significant elevation in LFTs. - no previous Echo or Stress test on file - telemetry monitoring and admission to IMU (2) Nausea and vomiting: ?Code(s): R11.2 - Nausea with vomiting, unspecified ?Status:?Acute ?Assessment and Plan: - viral PCR negative for COVID, Flu, and RSV - AST 948 and ALT 465 - lipase 69 - currently complicated by NSTEMI, however given significance of elevation and mild fever at arrival - adding US of RUQ. (3) Type 2 diabetes mellitus: ?Code(s): E11.9 - Type 2 diabetes mellitus without complications ?Status:?Acute ?Assessment and Plan: - currently 119 - hypoglycemia protocol - POC blood glucose Q12H - currently controlled with diet and exercise - A1C ordered DS: Discharge Diagnosis Discharge Diagnosis (1) Angina at rest: Code(s): I20.89 - Other forms of angina pectoris Status: Acute (2) Coronary disease: Code(s): I25.10 - Atherosclerotic heart disease of [place] coronary artery without angina pectoris Status: Acute (3) Non-ST elevated myocardial infarction: Code(s): I21.4 - Non-ST elevation (NSTEMI) myocardial infarction Status: Acute (4) Transaminitis: Code(s): R74.01 - Elevation of levels of liver transaminase levels Status: Acute (5) Statin intolerance: Code(s): Z78.9 - Other specified health status Status: Acute (6) Systolic murmur: Code(s): R01.1 - Cardiac murmur, unspecified Status: Acute (7) Tobacco abuse: Code(s): Z72.0 - Tobacco use Status: Acute (8) Type 2 diabetes mellitus: Code(s): E11.9 - Type 2 diabetes mellitus without complications Status: Acute (9) Abnormal LFTs: Code(s): R79.89 - Other specified abnormal findings of blood chemistry Status: Acute (10) Nausea and vomiting: Code(s): R11.2 - Nausea with vomiting, unspecified Status: Acute (11) NSTEMI (non-ST elevated myocardial infarction
--- NOTE | 2023-04-27 15:23 | PC.NURSE ---
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 Lerner came and discussed pt's condition, bed and doctor at [facility] accepted pt, report called to Kendra WHITTAKER in the icu, family kept up with all the changes, Dr. Kline the accepting doctor, at 1545 pt left unit with the flight team, pt gave all exposed jewelry to her , last vitals 69, 20, 98% on 2l and 167/62
== END 2023-04-27 15:45 | disposition short-term general hospital (02) | DRG 272 ==
LOC: ANHED 09:15 → ANHICU 11:51
PROVIDERS: Internal Medicine; Internal Medicine Cardiovascular Disease; Internal Medicine Infectious Disease; Student in an Organized Health Care Education/Training Program; Admitting Provider Family Medicine; Emergency Provider Emergency Medicine; PCP Emergency Medicine; Visit Provider Family Medicine
PROC: 4A023N7 Measurement of Cardiac Sampling and Pressure, Left Heart, Percutaneous Approach (ICD-10-PCS; CPT 93452; principal; 2023-04-27 11:30)
PROC: 4A023N7 Measurement of Cardiac Sampling and Pressure, Left Heart, Percutaneous Approach (ICD-10-PCS; CPT 92920; 2023-04-27 11:30)
PROC: 4A023N7 Measurement of Cardiac Sampling and Pressure, Left Heart, Percutaneous Approach (ICD-10-PCS; 2023-04-27 11:30)
DX: I21.4 Non-ST elevation (NSTEMI) myocardial infarction (principal); E03.9 Hypothyroidism, unspecified; E11.9 Type 2 diabetes mellitus without complications; E55.9 Vitamin D deficiency, unspecified; F32.A Depression, unspecified; F17.210 Nicotine dependence, cigarettes, uncomplicated; G89.29 Other chronic pain; I25.10 Atherosclerotic heart disease of native coronary artery without angina pectoris; M54.9 Dorsalgia, unspecified; R01.1 Cardiac murmur, unspecified; R03.0 Elevated blood-pressure reading, without diagnosis of hypertension; R74.01 Elevation of levels of liver transaminase levels; W18.30XA Fall on same level, unspecified, initial encounter; Z20.822 Contact with and (suspected) exposure to COVID-19
CPT/HCPCS: 33967; 36415; 71046; 80048; 80053; 80061; 82948; 83036; 83690; 83735; 83880; 84100; 84443; 84484; 85025; 85610; 85730; 87637; 92920; 93005; 93306; 93458; 96365; 96366; 96375; 99285; A9270; C1769; C1887; C1894; C9113; G0378; J0583; J1644; J1940; J2250; J2270; J2305; J2371; J2405; J3010; J7040

== ENCOUNTER 2023-06-21 02:13 | Observation (INO) | payer MEDICARE, SELFPAY ==
[2023-06-21] VITALS (23 sets, daily range): BP systolic 112–191; BP diastolic 73–98; PULSE 63–145; RESP 13–80; TEMP 36.1–36.7; O2SAT 96–100; BMI 18.7
--- NOTE | ~2023-06-21 | XR_ITS ---
Portable chest x-ray Comparison: 04/26/2023 Clinical History: Palpitations Findings: There is probable minimal left pleural effusion and left basilar atelectatic change. Right lung clear. Cardiomediastinal silhouette is stable, status post CABG. Bones and soft tissues are un remarkable. Impression: Left basilar atelectatic change and probable minimal pleural effusion. Right lung clear. Status post CABG. Reviewed, dictated and finalized at location M. Impression: Left basilar atelectatic change and probable minimal pleural effusion. Right lung clear. Status post CABG.
--- NOTE | 2023-06-21 02:20 | ECG_ITS ---
SEE SCANNED COPY FOR CONFIRMED REPORT MTDD
[2023-06-21 02:41] LABS: Basophils Absolute Auto 0.1 K/mm3 (0.0-0.1); Basophils Percent Auto 0.5 % (0.2-1.2); Eosinophils Absolute Auto 0.1 K/mm3 (0-0.3); Eosinophils Percent Auto 1.2 % (0-4.4); Hematocrit 38.5 % (37.0-47.0); Hemoglobin 12.7 g/dL (12.0-15.0); Immature Granulocyte Absolute 0.03 K/mm3 (0.00-0.031); Immature Granulocyte Percent A 0.3 % (0-0.5); Lymphocytes Absolute Auto 1.63 K/mm3 (0.9-3.2); Lymphocytes Percent Auto 14.7 % (18.3-44.2); Mean Corpuscular Hemoglobin 30.2 pg (26-34); Mean Corpuscular Volume 91.4 fl (80-100); Mean Platelet Volume 10.4 fl (7.4-10.4); Monocytes Absolute Auto 0.9 K/mm3 (0.1-0.6); Monocytes Percent Auto 7.7 % (2.6-8.5); Neutrophils Absolute Auto 8.4 K/mm3 (1.3-6.7); Neutrophils Percent Auto 75.6 % (45.5-73.1); Platelet Count Result 382 k/mm3 (150-375); Red Blood Count 4.21 M/mm3 (4.2-5.4); Red Cell Distribution Width 14.6 % (11.5-14.5); White Blood Count 11.1 K/mm3 (4.5-10.0)
[2023-06-21 02:52] LABS: INR 0.9; Prothrombin Time 12.8 Seconds (11.1-14.7)
[2023-06-21 02:53] LABS: Partial Thromboplastin Time 31.8 Seconds (22.3-36.8)
[2023-06-21] MEDS: dilTIAZem HCl INJ 25 MG/5 ML VIAL 10 MG IV PUSH (03:09)
[2023-06-21] MEDS: SODIUM CHLORIDE 0.9% IV 1,000 ML 999 ML IV CONT (03:09)
[2023-06-21 03:13] LABS: Alanine Aminotransferase 16 U/L (6-35); Albumin Level 3.2 g/dL (3.5-5.1); Alkaline Phosphatase 89 U/L (38-126); Anion Gap 5 mmol/L (4-12); Aspartate Amino Transferase 22 U/L (14-36); Bilirubin,Total 0.3 mg/dL (0.2-1.3); Blood Urea Nitrogen 18 mg/dL (7-17); Calcium 7.9 mg/dL (8.4-10.2); Carbon Dioxide 22 mmol/L (22-30); Chloride 107 mmol/L (98-107); Estimated CRCL calculation 51 ml/min; Estimated Glomerular Filt Rate > 60; Glucose 117 mg/dL (65-110); Magnesium 1.9 mg/dL (1.6-2.3); Phosphorus 3.5 mg/dL (2.5-4.5); Sodium 134 mmol/L (137-145)
[2023-06-21 03:21] LABS: NT Pro B Type Natriuretic Pept 2320 pg/mL (19.9-100)
--- NOTE | 2023-06-21 04:15 | ED.GENADULT ---
HPI - General Adult General Chief complaint: Arrhythmia/Palpitations Stated complaint: palpitations History of Present Illness HPI narrative: This is a 77-year-old female with history of coronary disease presenting for chest pain and palpitations. patient says she has been feeling weak throughout the day and has having intermittent left arm pain. She then called EMS was found to be in AFib with RVR. Patient denies chest pain shortness of breath or lower extremity edema. Patient has never been in AFib in the past. Patient says this is how she felt before she was diagnosed with an NSTEMI earlier this year. Related Data Allergies Allergy/AdvReac Type Severity Reaction Status Date / Time Fyeqzlv-ZJP-XcZ Reductase Allergy Unknown unknown Verified 01/17/23 11:23 Inhibitor [Ocevuoh-Yke-Ghf Reductase Inhibitor] [facility] Past Medical History Medical History Adult hypothyroidism Bilateral leg cramps Chronic back pain Depression DM w/o complication type II Elevated blood pressure reading without diagnosis of hypertension Fatigue Hyperglycemia Other and unspecified hyperlipidemia Other screening mammogram Screening cholesterol level Vitamin D deficiency Family History Family History Mother Cerebrovascular accident Father Acute myocardial infarction Social History Social History Years smoked: 60 Smoking status: Current every day smoker Tobacco type: cigarettes Second hand tobacco smoke exposure: Yes Smoking end date: 02/13/11 Alcohol intake: current Drinks per week: 2 Substance use: never Substance use type: does not use Do You Feel Safe in your Home?: Yes Lack of Transportation: YES Lack of Food: Never True Current Housing: I Have Housing Concerned About Future Housing: No Difficulty Paying Gas/Electric Bills: No Difficulty Paying for Meds: No Currently Unemployed: No Education: Bachelor's Degree Difficulty w/ Childcare or Family Care: No Spiritual care concerns: No Exam Narrative: APPEARANCE: No apparent distress. Head: atraumatic. EYES: EOMI, NOSE: Atraumatic NECK: Trachea midline RESPIRATORY: No increased rate of breathing clear to auscultation CARDIOVASCULAR: Rapid, regular, no peripheral edema ABDOMINAL: Non-distended soft nontender MUSCULOSKELETAl: No obvious deformities NEURO: Alert. Moving 4/4 extremities SKIN:: Warm, dry. Normal color PSYCHIATRIC: Normal affect Course Vital Signs Vital signs: Vital Signs Temperature 97.9 F 06/21/23 02:12 Pulse Rate 145 H 06/21/23 02:12 Respiratory Rate 18 06/21/23 02:12 Blood Pressure 112/98 H 06/21/23 02:12 Pulse Oximetry 96 06/21/23 02:12 Oxygen Delivery Room Air 06/21/23 02:12 Temperature 97.9 F 06/21/23 02:12 Pulse Rate 77 06/21/23 06:30 Respiratory Rate 17 06/21/23 06:30 Blood Pressure 147/84 H 06/21/23 06:30 Pulse Oximetry 97 06/21/23 06:30 Oxygen Delivery Room Air 06/21/23 02:27 Medical Decision Making MDM Narrative Medical decision making narrative: -Course: 77-year-old female presenting with palpitations. Found to be in AFib with RVR. Patient given 10 mg of diltiazem with conversion to normal sinus rhythm. Initial troponins elevated 0.069 -> 1.170. Suspect demand ischemia from AFib but given her significant cardiac history patient will be placed in observation. Patient given a dose of lovenox for Afib w/ elevated chadsvasc. Case was discussed with Dr. Vo from cardiology. Patient will be placed in observation. Ok to have diet order per cardiology. -DDX includes but is not limited to: AFib with RVR, dehydration, SVT -Co-morbidities complicating care: Coronary artery disease, hypertension, hypothyroid -Independent interpretation of studies: white count 11.1. Electrolyte
--- NOTE | 2023-06-21 04:19 | ECG_ITS ---
SEE SCANNED COPY FOR CONFIRMED REPORT MTDD
[2023-06-21 04:55] LABS: Troponin I 0.069 ng/mL (0.000-0.034)
--- NOTE | 2023-06-21 07:37 | PC.NURSE ---
Breakfast tray ordered for pt
[2023-06-21] MEDS: ENOXAPARIN 60 MG/0.6 ML SYRINGE 47 MG SUB-Q (09:10)
--- NOTE | 2023-06-21 10:18 | ECG_ITS ---
SEE SCANNED COPY FOR CONFIRMED REPORT MTDD
--- NOTE | 2023-06-21 12:15 | ADMGEN ---
This patient, Carmina Vasquez, was admitted to IMU Room 231-01. Patient/family oriented to hospital policies and general routines including ID bracelet, bed and alarms, visiting hours, pain management, procedures, bathroom and other care routines, personal items, smoking policy, room service/diet, and visiting hours. Information on how to activate the Rapid Response Team has been discussed. Patient/Family are encouraged to report perceived risks to care and to ask questions if they do not understand what they are told or what they should do.
--- NOTE | 2023-06-21 13:40 | PM.IMHP ---
H&P: HPI History of Present Illness Date/Time: 06/21/23 13:40 Chief Complaint: Palpitation Narrative: 77yo female with depression and elevated blood pressure who presents with complaints of palpitations. Patient was here in April for weakness and found to have NSTEMI. Heart cath was complicated and she ultimately was transferred to [facility] for CABG. She had 3 vessel CABG x3 (JOSEPH to proximal and distal LAD and saphen vein graft to the posterior descending artery. She did have post-op AFib that resolved. She has a hx of leg weakness that improves when she sits. Lumbar MRI in 2021 showing mild central canal stenosis, severe lumbar spondylosis. Symptoms would occur 1x/week on average. No calf. pain. She states this symptoms has resolved since her CABG. She had a recent post-operative visit and medications adjusted to Plavix, synthroid, lisinopril, metoprolol and sertraline. She does not take statin due to allergy. She was doing well untillast night when she felt her 'heart being fast'. This happened about 1 week ago but resolved with deep breathing. She tried the deep breathing again last night but without benefit. No CP, SOB, cough, nausea, vomiting, abdominal pain, dysuria, hematuria. She again felt weak in the legs and required the use of the walker. She denies unilateral weakness but felt off-balance. She presented to the ED for evaluation. In the ED, HR 145 with normal BP. She was found to be in AFib with RVR. She was given Diltiazem 10mg IV once and she converted to normal sinus. EKG showing irregular narrow complex rhythm with occasional P waves noted but probably AFib vs MAT. EKG performed after conversion showing normal sinus with LVH, LAD and anterior-lateral and inferiof T wave inversion. Troponin climbed to 2.05. CXR showing left basilar atelectasis and possible minimal left pleural effusion. She ws given ASA and Lovenox. IV fluid x 1L given as well. She was admitted for further care. Review of Systems Review of Systems: All systems reviewed & are unremarkable except as noted in HPI and below [facility] Past Medical History Medical History (Updated 06/21/23 @ 14:47 by Delfin Darnell MD) Adult hypothyroidism Bilateral leg cramps Chronic back pain Coronary disease Depression DM w/o complication type II Elevated blood pressure reading without diagnosis of hypertension Fatigue HTN (hypertension), benign Hyperglycemia Other and unspecified hyperlipidemia Other screening mammogram Screening cholesterol level Vitamin D deficiency Surgical History Surgical History Hx of CABG JOSEPH to proximal and distal LAD and saphen vein graft to the posterior descending artery april 2023 Family History Family History Mother Cerebrovascular accident Father Acute myocardial infarction Social History Social History (Updated 06/21/23 @ 14:31 by Delfin Darnell MD) Social History: Smoked up to 1ppd x 60 yrs and quit in April 2023. No alcohol or drug use. Lives at home with . They have a dog. 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 Smoking packs per day: 1 Smoking cigarettes per day: 20.0 Years smoked: 60 Smoking pack-years: 60.00 Smoking status: Former smoker Tobacco type: cigarettes Second hand tobacco smoke exposure: Yes Smoking end date: 04/26/23 Alcohol intake: never Drinks per week: 2 Substance use: never Substance use type: does not use Do You Feel Safe in your Home?: Yes Lack of Transportation: No Lack of Food: Never True Current Housing: I Have Housing Concerned About Future Housing: No Difficulty Paying Gas/Electric Bills: No Difficulty Paying for Meds: No Currently Unemployed: No Education: Bachelor's Degree Difficulty w/ Childcare or Family Care: No [place]
--- NOTE | 2023-06-21 14:52 | PM.CNCAR ---
Assessment and Plan Assessment and plan (1) Paroxysmal atrial fibrillation with rapid ventricular response: Code(s): I48.0 - Paroxysmal atrial fibrillation Status: Acute Assessment and Plan: Now in sinus rhythm. Will increase her Metoprolol to 25mg BID. Start Xarelto. (2) Elevated troponin: Code(s): R79.89 - Other specified abnormal findings of blood chemistry Status: Acute Assessment and Plan: EKGs show sinus rhythm with T wave inversions in the anterolateral leads, which she had previously. No anginal symptoms. Likely due to demand ischemia from RVR. (3) Coronary disease: Code(s): I25.10 - Atherosclerotic heart disease of [place] coronary artery without angina pectoris Status: Acute Assessment and Plan: Continue ASA. Not taking statin at home, started on Zetia. (4) Statin intolerance: Code(s): Z78.9 - Other specified health status Status: Acute Assessment and Plan: Started on Zetia. Plan Likely home tomorrow. Has outpatient visit scheduled with me. Recommendations and plan discussed with Dr. Darnell. History of Present Illness History of Present Illness Consult date/time: 06/21/23 14:52 Requesting physician: Zac Sarmiento MD Consult reason: atrial fibrillation Reason For Visit: afib with rvr and elevated trop Narrative: We are consulted for atrial fibrillation with RVR. This is a 77 year old female with coronary artery disease s/p 2V CABG 04/28/2023. Postoperatively she did have atrial fibrillation. She was given IV Amiodarone and chemically converted without recurrence. Patient reports that she felt a rapid heart rate that was persisting, therefore, she came to ER for further evaluation. Was found to be in atrial fibrillation with RVR, given Diltiazem. She has since converted to sinus rhythm. Workup also shows troponins of 0.069, 1.170, 2.050. Since being in sinus rhythm, she is currently feeling well. Last transthoracic echocardiogram 05/02/2023 shows severe LVH, LVEF 65-70%, mild MR, mild TR, mild biatrial enlargement. Review of Systems Review of Systems: All systems reviewed & are unremarkable except as noted in HPI and below (HPI) [facility] Past Medical History Medical History Adult hypothyroidism Bilateral leg cramps Chronic back pain Coronary disease Depression DM w/o complication type II Elevated blood pressure reading without diagnosis of hypertension Fatigue HTN (hypertension), benign Hyperglycemia Other and unspecified hyperlipidemia Other screening mammogram Screening cholesterol level Vitamin D deficiency Surgical History Surgical History Hx of CABG JOSEPH to proximal and distal LAD and saphen vein graft to the posterior descending artery april 2023 Family History Family History Mother Cerebrovascular accident Father Acute myocardial infarction Social History Social History Social History: Smoked up to 1ppd x 60 yrs and quit in April 2023. No alcohol or drug use. Lives at home with . They have a dog. 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 Smoking packs per day: 1 Smoking cigarettes per day: 20.0 Years smoked: 60 Smoking pack-years: 60.00 Smoking status: Former smoker Tobacco type: cigarettes Second hand tobacco smoke exposure: Yes Smoking end date: 04/26/23 Alcohol intake: never Drinks per week: 2 Substance use: never Substance use type: does not use Do You Feel Safe in your Home?: Yes Lack of Transportation: No Lack of Food: Never True Current Housing: I Have Housing Concerned About Future Housing: No Difficulty Paying Gas/Electric Bills: No Difficulty Paying for Meds:
[2023-06-21] MEDS: LEVOTHYROXINE SODIUM 100 MCG TABLET PO (15:24)
[2023-06-21] MEDS: METOPROLOL TARTRATE 25 MG TABLET PO ×2 (15:24→20:43)
[2023-06-21] MEDS: lisinopriL 20 MG TABLET PO (15:24)
[2023-06-21] MEDS: RIVAROXABAN 20 MG TABLET PO (20:43)
[2023-06-22] VITALS (9 sets, daily range): BP systolic 153–169; BP diastolic 83–97; PULSE 63–74; RESP 15–18; TEMP 36.1–36.3; O2SAT 95–100
[2023-06-22 05:54] LABS: Folic Acid > 20.0 ng/mL (2.76->20)
[2023-06-22] MEDS: LEVOTHYROXINE SODIUM 100 MCG TABLET PO (06:03)
[2023-06-22] MEDS: lisinopriL 20 MG TABLET PO (08:38)
[2023-06-22] MEDS: METOPROLOL TARTRATE 25 MG TABLET PO (08:38)
[2023-06-22] MEDS: SERTRALINE HCL 50 MG TABLET PO (08:38)
[2023-06-22] MEDS: EZETIMIBE 10 MG TABLET PO (08:39)
[2023-06-22] MEDS: ASPIRIN 81 MG ENTERIC TABLET PO (08:39)
--- NOTE | 2023-06-22 08:58 | PM.PNCARD ---
Progress Note: A&P Assessment and Plan (1) Paroxysmal atrial fibrillation with rapid ventricular response: Code(s): I48.0 - Paroxysmal atrial fibrillation Status: Acute Assessment and Plan: Now in sinus rhythm. Increased her Metoprolol to 25mg BID. Started Xarelto. (2) Elevated troponin: Code(s): R79.89 - Other specified abnormal findings of blood chemistry Status: Acute Assessment and Plan: EKGs show sinus rhythm with T wave inversions in the anterolateral leads, which she had previously. No anginal symptoms. Likely due to demand ischemia from RVR. (3) Coronary disease: Code(s): I25.10 - Atherosclerotic heart disease of [place] coronary artery without angina pectoris Status: Acute Assessment and Plan: S/p CABG. Continue ASA. Not taking statin at home, started on Zetia. (4) Statin intolerance: Code(s): Z78.9 - Other specified health status Status: Acute Assessment and Plan: Started on Zetia. Plan Okay to discharge home from my standpoint. Recommendations and plan discussed with Hospitalist, Dr. Darnell. Subjective Date/time seen: 06/22/23 08:58 Interval history: Reason for visit: Atrial fibrillation with RVR HPI: We are consulted for atrial fibrillation with RVR. This is a 77 year old female with coronary artery disease s/p 2V CABG 04/28/2023. Postoperatively she did have atrial fibrillation. She was given IV Amiodarone and chemically converted without recurrence. Patient reports that she felt a rapid heart rate that was persisting, therefore, she came to ER for further evaluation. Was found to be in atrial fibrillation with RVR, given Diltiazem. She has since converted to sinus rhythm. Workup also shows troponins of 0.069, 1.170, 2.050. Since being in sinus rhythm, she is currently feeling well. Last transthoracic echocardiogram 05/02/2023 shows severe LVH, LVEF 65-70%, mild MR, mild TR, mild biatrial enlargement. Date of service 06/21: Feeling well. No recurrence of AFIB. Review of Systems Review of Systems: All systems reviewed & are unremarkable except as noted in HPI and below (HPI) Exam Const: General: comfortable and no acute distress HENMT: Mouth: Yes moist mucous membranes Eyes: General: appearance normal, both eyes and all related structures Sclera: sclerae normal Resp: Effort & Inspection: normal respiratory effort Cardio: Rate: regular rate Rhythm: regular rhythm Skin: General skin exam: normal color Neuro: Speech: normal speech Psych: Mental Status: mental status grossly normal Affect: normal affect Objective Data Vital Signs Vital Signs: Vital Signs - 24 hr 06/21/23 11:01 06/21/23 12:10 06/21/23 14:00 Temperature 36.7 C Pulse Rate 80 82 82 Respiratory Rate 20 19 Blood Pressure 172/80 H 191/80 H Pulse Oximetry 97 100 Oxygen Delivery Fraction of Inspired Oxygen 06/21/23 15:24 06/21/23 16:00 06/21/23 16:00 Temperature 36.5 C Pulse Rate 82 80 76 Respiratory Rate 17 Blood Pressure 183/89 H Pulse Oximetry 100 Oxygen Delivery Fraction of Inspired Oxygen 06/21/23 18:00 06/21/23 19:52 06/21/23 20:43 Temperature 36.1 C L Pulse Rate 76 68 68 Respiratory Rate 14 Blood Pressure 169/81 H Pulse Oximetry 98 Oxygen Delivery Fraction of Inspired Oxygen 06/21/23 23:56 06/21/23 20:00 06/21/23 20:00 Temperature 36.4 C Pulse Rate 63 68 68 Respiratory Rate 16 16 Blood Pressure 167/85 H Pulse Oximetry 96 96 Oxygen Delivery Room Air Fraction of Inspired Oxygen 06/21/23 22:00 06/22/23 00:00 06/22/23 00:00 Temperature Pulse Rate 64 65 65 Respiratory Rate 16 Blood Pressure Pulse Oximetry 96 Oxygen Delivery Room Air Fraction of Inspired Oxygen 06/22/23 02:00 06/22/23 04:00 06/22/23 04:00 Temperature Pulse Rate 64 74 74 Respiratory Rate 16 Blood Pressure Pulse Oximetry 96 Oxygen Delivery Room Air Fraction of Inspired
--- NOTE | 2023-06-22 11:46 | PM.DS ---
DS: Admitting Diagnosis Discharge Date 06/22/23 Admitting Diagnosis Palpitations DS: Discharge Diagnosis Discharge Diagnosis (1) Paroxysmal A-fib: Code(s): I48.0 - Paroxysmal atrial fibrillation Status: Acute (2) Elevated troponin: Code(s): R79.89 - Other specified abnormal findings of blood chemistry Status: Acute (3) Coronary disease: Code(s): I25.10 - Atherosclerotic heart disease of [place] coronary artery without angina pectoris Status: Acute (4) HTN (hypertension), benign: Code(s): I10 - Essential (primary) hypertension Status: Acute (5) Weakness: Code(s): R53.1 - Weakness Status: Acute DS: Summary Hospital Course Reason for hospitalization: 77yo female with depression and elevated blood pressure who presents with complaints of palpitations. Please see H&P for details. Hospital Course: In the ED, HR 145 with normal BP. She was found to be in AFib with RVR. She was given Diltiazem 10mg IV once and she converted to normal sinus. EKG showing irregular narrow complex rhythm consistent with AFib. EKG performed after conversion showing normal sinus with LVH, LAD and anterior-lateral and inferior T wave inversion. Troponin climbed to 2.05. Cardiology felt that the EKG changes are chronic. CXR showing left basilar atelectasis and possible minimal left pleural effusion. She was given ASA and Lovenox. IV fluid x 1L given as well. She was admitted for further care. TSH normal. Her [id number] score is 5 (HTN, age, vasc, female) so anticoagulation is recommended. She was started on therapeutic lovenox. We resumed her metoprolol and advanced the dose. Cardiology consulted. Changed to Xarelto. Patient with CAD with NSTEMI s/p CABG x3 vessel in April. She is on Plavix at home and not on ASA per family. We resumed ASA and stopped Plavix. She is allergic to statin so Zetia added. She was having weakness felt related to the AFib/RVR. Not clear if there is a chronic component. No focal weakness. B12/folate levels normal. Discussed risks/benefits of anticoagulation. All questions answered. She overall did well and was able to be discharged home on 06/22/23 Status at Discharge Cognitive/behavioral status at discharge: stable Time Spent with Patient Time attestation: Total time spent providing and/or coordinating discharge services: 31 minutes Time spent: Greater than 30 minutes Exam Narrative: AF 97.3 169/83 63 16 100% ra Gen - NARD Chest - right base crackles o/w clear CV - RRR. S1-S2. Abd - soft. Nontender. Nondistended. Positive bowel sounds. Ext - trace left foot pedal edema. Psych - normal mood and affect. Skin - warm and dry. DS: Data Data Completed and Pending Labs on day of discharge: Labs from last 24 hours 06/22/23 04:23 Vitamin B12 705.0 Folate > 20.0 H Discharge Plan Discharge Attending physician on discharge: Delfin Darnell Consulting providers: Octavia Vo Discharging Clinician: Delfin Darnell Anticipated Discharge Date/Time: 06/22/23 11:53 Patient Disposition: Home, Self-Care Activity: as tolerated Diet: heart healthy Discharge Instructions: Check blood pressure 1 to 2 times a day. Record and bring into your doctor for review. Call your doctor if your blood pressure is greater than 180/110. Take precautions to avoid falls. Rise slowly from a lying or sitting position. Pause before standing or walking. Contact your doctor or call 911 and come to the Emergency Room if you have any type of trauma, lightheadedness with standing or other worrisome symptoms. Avoid NSAIDs (ibuprofen, naproxen, Aleve). Tylenol is safe to take. Follow-up with your primary care provider in 1-2 weeks. Please call for appointment. Follow-up with Cardiology in 2-3 weeks. Please call for an appointment. Thank you for using [facility] for your health care needs. Patient Instr
== END 2023-06-22 12:24 | disposition home or self-care (01) ==
LOC: ANHED 06:44 → ANHIMU 06-22 10:06
PROVIDERS: Admitting Provider Internal Medicine; Emergency Provider Emergency Medicine; PCP Emergency Medicine; Visit Provider Internal Medicine
DX: I48.0 Paroxysmal atrial fibrillation (principal); R79.89 Other specified abnormal findings of blood chemistry; R53.1 Weakness; I25.2 Old myocardial infarction; E11.9 Type 2 diabetes mellitus without complications; I10 Essential (primary) hypertension; I25.10 Atherosclerotic heart disease of native coronary artery without angina pectoris; E03.9 Hypothyroidism, unspecified; E55.9 Vitamin D deficiency, unspecified; E78.49 Other hyperlipidemia; F32.A Depression, unspecified; Z87.891 Personal history of nicotine dependence; Z95.1 Presence of aortocoronary bypass graft; Z78.9 Other specified health status
CPT/HCPCS: 36415; 71045; 80053; 82607; 82746; 83735; 83880; 84100; 84443; 84484; 85025; 85610; 85730; 93005; 96372; 96374; 99285; A9270; G0378; J1650; J7030

== ENCOUNTER 2023-06-23 07:35 | Emergency (ER) | payer MEDICARE, SELFPAY ==
[2023-06-23] VITALS (9 sets, daily range): BP systolic 103–157; BP diastolic 73–86; PULSE 65–144; RESP 13–20; TEMP 36.8; O2SAT 97–100
--- NOTE | ~2023-06-23 | XR_ITS ---
EXAMINATION: XR chest 1V portable DATE: 06/23/2023 08:53 INDICATION: Tachycardia. TECHNIQUE: A single frontal view of the chest was obtained. COMPARISON: Chest single view 06/21/2023 FINDINGS: Again seen is elevation of left hemidiaphragm. There are airspace opacities at left lung ba se. There is a small left pleural effusion. No pneumothorax. The heart size is normal. Median sternot sade wires and mediastinal surgical clips are seen, likely from prior coronary artery bypass grafting. There are retained epicardial pacer wires noted. IMPRESSION: 1. Stable small left pleural effusion. 2. Stable airspace opacities at left lung base, consistent with atelectasis versus pneumonia. Reviewed, dictated and finalized at location A. IMPRESSION: 1. Stable small left pleural effusion. 2. Stable airspace opacities at left lung base, consistent with atelectasis michael francheska pneumonia.
--- NOTE | 2023-06-23 08:06 | ED.WEAKNESS ---
HPI - Weakness General Chief complaint: Weakness Stated complaint: doesn't feel well hypotension History of Present Illness HPI Narrative: This is a 77-year-old female, with history paroxysmal AFib and coronary artery disease, recently discharged from this hospital yesterday, brought in by EMS for tachycardia lightheadedness. The patient states she discharge yesterday felt well with a controlled heart rate and normal blood pressure. This morning waking, she felt lightheaded and generally weak that has been consistent with episodes of AFib. She states her measured heart rate at home was in the 120s. She lowered herself to the floor as a precaution. On arrival, EMS reported the patient was tachycardic between the 130s to 150s. A blood pressure at that time was measured in the 80s systolic. Patient was started on a L of IV fluids. Related Data Home Medications Medication Instructions Recorded Confirmed aspirin 81 mg tablet,delayed 81 mg PO DAILY 06/21/23 06/21/23 release levothyroxine 100 mcg tablet 100 mcg PO DAILY 06/21/23 06/21/23 lisinopril 20 mg tablet 20 mg PO DAILY 06/21/23 06/21/23 sertraline 50 mg tablet 50 mg PO DAILY 06/21/23 06/21/23 Allergies Allergy/AdvReac Type Severity Reaction Status Date / Time Ouzkoqm-NTH-YaH Reductase Allergy Unknown unknown Verified 06/23/23 07:57 Inhibitor [Ftrnjzn-Hsd-Kys Reductase Inhibitor] Review of Systems Review of Systems: CONSTITUTIONAL: Denies fever, chills, or sweats. EYES: Denies visual changes, redness, or discharge. ENT: Denies rhinorrhea, congestion, sore throat, or otalgia. CARDIOVASCULAR: Palpitations Denies chest pain, or edema. RESPIRATORY: Denies cough or dyspnea. GASTROINTESTINAL: Denies abdominal pain, nausea, vomiting, or diarrhea. GENITOURINARY: Denies dysuria or hematuria. SKIN: Denies rash or itching. MUSCULOSKELETAL: Denies back pain, joint pain, or myalgia. NEUROLOGIC: General weakness Denies headache, numbness, dizziness, PSYCHIATRIC: Denies anxiety or depression. [facility] Past Medical History Medical History Adult hypothyroidism Bilateral leg cramps Chronic back pain Coronary disease Depression DM w/o complication type II Elevated blood pressure reading without diagnosis of hypertension Fatigue HTN (hypertension), benign Hyperglycemia Other and unspecified hyperlipidemia Other screening mammogram Screening cholesterol level Vitamin D deficiency Surgical History Surgical History Hx of CABG JOSEPH to proximal and distal LAD and saphen vein graft to the posterior descending artery april 2023 Family History Family History Mother Cerebrovascular accident Father Acute myocardial infarction Social History Social History Social History: Smoked up to 1ppd x 60 yrs and quit in April 2023. No alcohol or drug use. Lives at home with . They have a dog. 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 Smoking packs per day: 1 Smoking cigarettes per day: 20.0 Years smoked: 60 Smoking pack-years: 60.00 Smoking status: Former smoker Tobacco type: cigarettes Second hand tobacco smoke exposure: Yes Smoking end date: 04/26/23 Alcohol intake: never Drinks per week: 2 Substance use: never Substance use type: does not use Do You Feel Safe in your Home?: Yes Lack of Transportation: No Lack of Food: Never True Current Housing: I Have Housing Concerned About Future Housing: No Difficulty Paying Gas/Electric Bills: No Difficulty Paying for Meds: No Currently Unemployed: No Education: Bachelor's Degree Difficulty w/ Childcare or Family Care: No Spiritual care concerns: No Exam
[2023-06-23 08:34] LABS: Basophils Percent Auto 0.4 % (0.2-1.2); Eosinophils Absolute Auto 0.1 K/mm3 (0-0.3); Eosinophils Percent Auto 1.3 % (0-4.4); Hematocrit 39.4 % (37.0-47.0); Hemoglobin 12.8 g/dL (12.0-15.0); Immature Granulocyte Absolute 0.05 K/mm3 (0.00-0.031); Immature Granulocyte Percent A 0.5 % (0-0.5); Lymphocytes Absolute Auto 1.49 K/mm3 (0.9-3.2); Lymphocytes Percent Auto 16.4 % (18.3-44.2); Mean Corpuscular HGB Conc 32.5 g/dl (32-36); Mean Corpuscular Hemoglobin 29.9 pg (26-34); Mean Corpuscular Volume 92.1 fl (80-100); Mean Platelet Volume 9.8 fl (7.4-10.4); Monocytes Absolute Auto 0.8 K/mm3 (0.1-0.6); Monocytes Percent Auto 8.3 % (2.6-8.5); Neutrophils Absolute Auto 6.7 K/mm3 (1.3-6.7); Neutrophils Percent Auto 73.1 % (45.5-73.1); Platelet Count Result 366 k/mm3 (150-375); Red Blood Count 4.28 M/mm3 (4.2-5.4); Red Cell Distribution Width 14.6 % (11.5-14.5); White Blood Count 9.1 K/mm3 (4.5-10.0)
--- NOTE | 2023-06-23 08:40 | PC.NURSE ---
Pt converted to NSR with rate of 70. Metoprolol held.
[2023-06-23 08:47] LABS: Alanine Aminotransferase 40 U/L (6-35); Albumin Level 3.5 g/dL (3.5-5.1); Alkaline Phosphatase 117 U/L (38-126); Anion Gap 8 mmol/L (4-12); Aspartate Amino Transferase 41 U/L (14-36); Bilirubin,Total 0.5 mg/dL (0.2-1.3); Blood Urea Nitrogen 12 mg/dL (7-17); Calcium 8.6 mg/dL (8.4-10.2); Carbon Dioxide 20 mmol/L (22-30); Chloride 107 mmol/L (98-107); Estimated CRCL calculation 50 ml/min; Estimated Glomerular Filt Rate > 60; Glucose 115 mg/dL (65-110); Potassium 3.6 mmol/L (3.4-5.0); Sodium 135 mmol/L (137-145)
[2023-06-23 09:00] LABS: Troponin I 0.131 ng/mL (0.000-0.034)
[2023-06-23] MEDS: SODIUM CHLORIDE 0.9% IV 1,000 ML 999 ML IV CONT (09:20)
[2023-06-23 10:36] LABS: Appearance Urine Clear (Clear); Bacteria Urine 1+ /hpf; Bilirubin Urine Negative (Negative); Blood Urine Non-Hemolyzed Trace (Negative); Color Urine Yellow (Yellow); Glucose Urine UA Negative (Negative); Ketones Urine 1+ mg/dL (Negative); Leukocyte Esterase Ur Trace LEU/UL (Negative); Nitrate Urine Negative (Negative); Protein Urine Negative (Negative); Specific Grav Ur 1.013 (1.001-1.035); Squamous Epithelial Cell Urine Occasional /hpf (Few); pH Urine 6.5 (5.0-9.0)
[2023-06-23 10:39] LABS: Add Urine Microscopic? YES
== END 2023-06-23 11:14 | disposition home or self-care (01) ==
PROVIDERS: Emergency Provider Preventive Medicine Aerospace Medicine; PCP Emergency Medicine
DX: I48.0 Paroxysmal atrial fibrillation (principal); R82.998 Other abnormal findings in urine; I25.10 Atherosclerotic heart disease of native coronary artery without angina pectoris; I10 Essential (primary) hypertension; E03.9 Hypothyroidism, unspecified; E11.9 Type 2 diabetes mellitus without complications; E55.9 Vitamin D deficiency, unspecified; E78.5 Hyperlipidemia, unspecified; Z95.1 Presence of aortocoronary bypass graft; Z87.891 Personal history of nicotine dependence; Z79.82 Long term (current) use of aspirin; Z79.01 Long term (current) use of anticoagulants
CPT/HCPCS: 36415; 71045; 80053; 81001; 84443; 84484; 85025; 87077; 87086; 87088; 87186; 96360; 96361; 99284; J7030

== ENCOUNTER 2023-06-23 20:03 | Inpatient (IN) | payer MEDICARE, SELFPAY ==
[2023-06-23] VITALS (16 sets, daily range): BP systolic 124–152; BP diastolic 82–111; PULSE 60–139; RESP 15–25; TEMP 36.3–36.6; O2SAT 98–100; BMI 18.3
--- NOTE | ~2023-06-23 | CT_ITS ---
EXAMINATION: CTA chest PE protocol DATE: 06/23/2023 21:32 INDICATION: Atrial fibrillation. Cardiac palpitations. TECHNIQUE: Computed tomography (CT) pulmonary angiogram of the chest was performed with 100 mL Omnipa que-350 intravenous contrast. Additional 3D reconstructions utilizing coronal maximum intensity proje ction (MIP) were performed. Automated exposure control and iterative reconstruction technique were em ployed. The dose-length product was 135.62 mGy-cm. COMPARISON: None FINDINGS: No pulmonary embolism. Small left pleural effusion with mild basilar atelectasis in the left lower lo be. No pneumonia, pulmonary edema, pneumothorax or right-sided pleural effusion. Cardiac medically. P ostoperative change of prior or artery bypass grafting with median sternotomy wires, multiple surgica l clips and ostial markers along the ascending thoracic aorta. There are also some retained epicardia l pacemaker leads along the anterior heart border. Thoracic aorta is normal in caliber. No pathologic ally enlarged thoracic lymphadenopathy. There is some reflux of contrast into the inferior vena cava and hepatic veins consistent with tricuspid regurgitation. Visualized upper abdomen is otherwise unre markable. Mild/moderate thoracic and severe upper lumbar spondylosis. IMPRESSION: 1. No pulmonary embolism. 2. Small left pleural effusion with associated left basilar atelectasis. 3. Cardiomegaly with change of recent coronary artery bypass grafting. 4. Reflux of contrast into the superior vena cava and hepatic veins consistent with tricuspid regurgi tation. Reviewed, dictated and finalized at location A. IMPRESSION: 1. No pulmonary embolism. 2. Small left pleural effusion with associated left basilar atelectasis. 3. Cardiomegaly with change of recent coronary artery bypass grafting. 4. Reflux of contrast into the superior vena cava and hepatic veins consistent with tricuspid regurgitation.
--- NOTE | ~2023-06-23 | XR_ITS ---
EXAMINATION: XR chest 2V DATE: 06/23/2023 20:47 INDICATION: Atrial fibrillation. TECHNIQUE: PA and lateral views of the chest were obtained. COMPARISON: Chest radiograph dated 06/23/2023 at 8:50 AM FINDINGS: Again seen are airspace opacities along the elevated left hemidiaphragm. This includes blunting at th e posterior sulcus and costophrenic angle consistent with small left pleural effusion and likely asso ciated atelectasis. Right lung remains clear. No pulmonary edema, pneumothorax or right-sided pleural effusion. Mild cardiomegaly. Median sternotomy wires, ostial markers and mediastinal surgical clips consistent with prior coronary artery bypass grafting. There are also retained epicardial pacemaker l danya. Mild lumbar levoscoliosis with mild thoracic and moderate to severe lumbar spondylosis. IMPRESSION: 1. Unchanged elevation of the left hemidiaphragm with small left pleural effusion and associated atel ectasis versus pneumonia at the left lung base. Reviewed, dictated and finalized at location A. IMPRESSION: 1. Unchanged elevation of the left hemidiaphragm with small left pleural effusi on and associated atelectasis versus pneumonia at the left lung base.
--- NOTE | 2023-06-23 20:04 | ECG_ITS ---
SEE SCANNED COPY FOR CONFIRMED REPORT MTDD
--- NOTE | 2023-06-23 20:20 | ED.GENADULT ---
HPI - General Adult General Chief complaint: Chest Pain Stated complaint: A-Fib Time Seen by Provider: 06/23/23 20:14 History of Present Illness HPI narrative: patient is a 77-year-old female with history of coronary artery disease and CABG as well as atrial fibrillation who presents ER with rapid heart rate. It began around 6:00 p.m. after taking her evening dose of metoprolol. AFib is a new diagnosis for her in the last week. She takes metoprolol 25 mg b.i.d.. She was seen in the ER earlier today for the same symptoms but spontaneously converted to sinus rhythm on her own. She is having no chest pain or shortness of breath. Earlier in the day she was lightheaded but she is not lightheaded at this time. Her test baker is Dr. Lerner. Related Data Home Medications Medication Instructions Recorded Confirmed aspirin 81 mg tablet,delayed 81 mg PO DAILY 06/21/23 06/21/23 release levothyroxine 100 mcg tablet 100 mcg PO DAILY 06/21/23 06/21/23 lisinopril 20 mg tablet 20 mg PO DAILY 06/21/23 06/21/23 sertraline 50 mg tablet 50 mg PO DAILY 06/21/23 06/21/23 Allergies Allergy/AdvReac Type Severity Reaction Status Date / Time Mstbupd-MXF-JaC Reductase Allergy Unknown unknown Verified 06/23/23 20:10 Inhibitor [Rawncrg-Bsd-Qff Reductase Inhibitor] Review of Systems Review of Systems: All systems reviewed & are unremarkable except as noted in HPI and below Constitutional: Constitutional: Reports no additional constitutional complaints ENT: Reports system reviewed and no additional complaints, except as documented Cardiovascular: Cardiovascular: Denies chest pain, Reports rapid heart rate and Denies radiating jaw, neck or arm pain Respiratory: Respiratory: Reports no additional respiratory complaints Gastrointestinal: Gastrointestinal: Reports no additional gastrointestinal complaints [facility] Past Medical History Medical History Adult hypothyroidism Bilateral leg cramps Chronic back pain Coronary disease Depression DM w/o complication type II Elevated blood pressure reading without diagnosis of hypertension Fatigue HTN (hypertension), benign Hyperglycemia Other and unspecified hyperlipidemia Other screening mammogram Screening cholesterol level Vitamin D deficiency Surgical History Surgical History Hx of CABG JOSEPH to proximal and distal LAD and saphen vein graft to the posterior descending artery april 2023 Family History Family History Mother Cerebrovascular accident Father Acute myocardial infarction Social History Social History Social History: Smoked up to 1ppd x 60 yrs and quit in April 2023. No alcohol or drug use. Lives at home with . They have a dog. 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 Smoking packs per day: 1 Smoking cigarettes per day: 20.0 Years smoked: 60 Smoking pack-years: 60.00 Smoking status: Former smoker Tobacco type: cigarettes Second hand tobacco smoke exposure: Yes Smoking end date: 04/26/23 Alcohol intake: never Drinks per week: 2 Substance use: never Substance use type: does not use Do You Feel Safe in your Home?: Yes Lack of Transportation: No Lack of Food: Never True Current Housing: I Have Housing Concerned About Future Housing: No Difficulty Paying Gas/Electric Bills: No Difficulty Paying for Meds: No Currently Unemployed: No Education: Bachelor's Degree Difficulty w/ Childcare or Family Care: No Spiritual care concerns: No Exam Narrative: GENERAL: Well-appearing, well-nourished, and in no acute distress. HEAD: Normocephalic, atraumatic. ENT: Mucous membranes moist. NECK: S
[2023-06-23] MEDS: METOPROLOL TARTRATE INJ 5 MG/5 ML VIAL IV PUSH ×2 (20:30→21:05)
[2023-06-23] MEDS: ASPIRIN 81 MG CHEWABLE TABLET 324 MG PO (20:30)
[2023-06-23 20:38] LABS: Basophils Percent Auto 0.3 % (0.2-1.2); Eosinophils Absolute Auto 0.2 K/mm3 (0-0.3); Hematocrit 38.2 % (37.0-47.0); Hemoglobin 12.5 g/dL (12.0-15.0); Immature Granulocyte Absolute 0.03 K/mm3 (0.00-0.031); Immature Granulocyte Percent A 0.3 % (0-0.5); Lymphocytes Absolute Auto 2.56 K/mm3 (0.9-3.2); Lymphocytes Percent Auto 24.2 % (18.3-44.2); Mean Corpuscular HGB Conc 32.7 g/dl (32-36); Mean Corpuscular Hemoglobin 29.9 pg (26-34); Mean Corpuscular Volume 91.4 fl (80-100); Mean Platelet Volume 9.9 fl (7.4-10.4); Monocytes Absolute Auto 1.2 K/mm3 (0.1-0.6); Monocytes Percent Auto 11.2 % (2.6-8.5); Neutrophils Absolute Auto 6.6 K/mm3 (1.3-6.7); Platelet Count Result 373 k/mm3 (150-375); Red Blood Count 4.18 M/mm3 (4.2-5.4); Red Cell Distribution Width 14.6 % (11.5-14.5); White Blood Count 10.6 K/mm3 (4.5-10.0)
[2023-06-23 20:49] LABS: Alanine Aminotransferase 67 U/L (6-35); Albumin Level 3.9 g/dL (3.5-5.1); Alkaline Phosphatase 112 U/L (38-126); Anion Gap 10 mmol/L (4-12); Aspartate Amino Transferase 78 U/L (14-36); Bilirubin,Total 0.4 mg/dL (0.2-1.3); Blood Urea Nitrogen 18 mg/dL (7-17); Calcium 9.7 mg/dL (8.4-10.2); Carbon Dioxide 22 mmol/L (22-30); Chloride 104 mmol/L (98-107); Estimated CRCL calculation 52 ml/min; Estimated Glomerular Filt Rate > 60; Glucose 109 mg/dL (65-110); INR 1.9; Lipase 86 U/L (23-300); Potassium 3.8 mmol/L (3.4-5.0); Prothrombin Time 22.6 Seconds (11.1-14.7); Sodium 136 mmol/L (137-145)
[2023-06-23 20:50] LABS: Partial Thromboplastin Time 49.5 Seconds (22.3-36.8)
--- NOTE | 2023-06-23 21:59 | PM.IMHP ---
H&P: HPI History of Present Illness Date/Time: 06/23/23 21:59 Chief Complaint: palpitations Narrative: This is a 77-year-old female with past medical history significant for coronary artery disease, patient is status post coronary artery bypass graft on April of 2023, type diabetes mellitus, hypertension, atrial fibrillation. Patient has had several visits to the emergency room due to palpitations patient was found to have atrial fibrillation with rapid ventricular response has had several episodes 2 days she was brought back to the emergency room after having an episode of palpitations, near syncope, diaphoresis, denies chest pain. Patient has been admitted for further evaluation management and treatment. EXAMINATION: XR chest 2V DATE: 06/23/2023 20:47 INDICATION: Atrial fibrillation. TECHNIQUE: PA and lateral views of the chest were obtained. COMPARISON: Chest radiograph dated 06/23/2023 at 8:50 AM FINDINGS: Again seen are airspace opacities along the elevated left hemidiaphragm. This includes blunting at the posterior sulcus and costophrenic angle consistent with small left pleural effusion and likely associated atelectasis. Right lung remains clear. No pulmonary edema, pneumothorax or right-sided pleural effusion. Mild cardiomegaly. Median sternotomy wires, ostial markers and mediastinal surgical clips consistent with prior coronary artery bypass grafting. There are also retained epicardial pacemaker leads. Mild lumbar levoscoliosis with mild thoracic and moderate to severe lumbar spondylosis. IMPRESSION: 1. Unchanged elevation of the left hemidiaphragm with small left pleural effusion and associated atelectasis versus pneumonia at the left lung base. EXAMINATION: CTA chest PE protocol DATE: 06/23/2023 21:32 INDICATION: Atrial fibrillation. Cardiac palpitations. TECHNIQUE: Computed tomography (CT) pulmonary angiogram of the chest was performed with 100 mL Omnipaque-350 intravenous contrast. Additional 3D reconstructions utilizing coronal maximum intensity projection (MIP) were performed. Automated exposure control and iterative reconstruction technique were employed. The dose-length product was 135.62 mGy-cm. COMPARISON: None FINDINGS: No pulmonary embolism. Small left pleural effusion with mild basilar atelectasis in the left lower lobe. No pneumonia, pulmonary edema, pneumothorax or right-sided pleural effusion. Cardiac medically. Postoperative change of prior or artery bypass grafting with median sternotomy wires, multiple surgical clips and ostial markers along the ascending thoracic aorta. There are also some retained epicardial pacemaker leads along the anterior heart border. Thoracic aorta is normal in caliber. No pathologically enlarged thoracic lymphadenopathy. There is some reflux of contrast into the inferior vena cava and hepatic veins consistent with tricuspid regurgitation. Visualized upper abdomen is otherwise unremarkable. Mild/moderate thoracic and severe upper lumbar spondylosis. IMPRESSION: 1. No pulmonary embolism. 2. Small left pleural effusion with associated left basilar atelectasis. 3. Cardiomegaly with change of recent coronary artery bypass grafting. 4. Reflux of contrast into the superior vena cava and hepatic veins consistent with tricuspid regurgitation. Review of Systems Review of Systems: palpitations, near syncope, diaphoresis, Constitutional: Constitutional: Denies chills, Denies fatigue, Denies fever(s), Denies malaise, Denies night sweats and Denies weakness Eyes: Eyes: Denies change in vision ENT: Denies dysphagia, Denies nasal congestion, Denies nasal discharge and Denies odynophagia Cardiovascular: Cardiovascular: Denies chest pain, Denies syncope, Reports irregular heart rhythm and Reports palpitations Respiratory: Respiratory: Denies chest congestion and Denies cough Gastrointestinal: Gastrointestinal: Denies abdominal pain, Denies nausea and Denies vomiting
--- NOTE | 2023-06-23 22:22 | PC.NURSE ---
Pt converted to normal sinus rhythm at 2144. ECG strips printed from monitor at time of conversion. Repeat EKG preformed, provider made aware.
--- NOTE | 2023-06-23 23:20 | ADMGEN ---
This patient, Carmina Vasquez, was admitted to IMU Room 201-01 on 06/23/23 at 2318. Patient/family oriented to hospital policies and general routines including ID bracelet, bed and alarms, visiting hours, pain management, procedures, bathroom and other care routines, personal items, smoking policy, room service/diet, and visiting hours. Information on how to activate the Rapid Response Team has been discussed. Patient/Family are encouraged to report perceived risks to care and to ask questions if they do not understand what they are told or what they should do.
[2023-06-24] VITALS (26 sets, daily range): BP systolic 130–219; BP diastolic 83–102; PULSE 59–140; RESP 15–20; TEMP 36–36.4; O2SAT 96–100
[2023-06-24] MEDS: METOPROLOL TARTRATE 25 MG TABLET PO ×2 (06:15→08:16)
[2023-06-24] MEDS: lisinopriL 20 MG TABLET PO ×2 (06:15→16:25)
[2023-06-24] MEDS: LEVOTHYROXINE SODIUM 100 MCG TABLET PO (06:15)
[2023-06-24] MEDS: SERTRALINE HCL 50 MG TABLET PO (08:16)
--- NOTE | 2023-06-24 09:42 | PM.CNCAR ---
Assessment and Plan Assessment and plan (1) Atrial fibrillation with RVR: Code(s): I48.91 - Unspecified atrial fibrillation Status: Acute (2) Atrial flutter: Code(s): I48.92 - Unspecified atrial flutter Status: Acute Plan This is a 77-year-old lady who recently was found to have coronary disease and had to undergo surgical revascularization in April of this year. She is admitted several times now with tachycardia palpitations and atrial fibrillation this time she actually has atrial flutter. This is occurring despite treatment with metoprolol. At this point I believe we need to add advanced her antiarrhythmic therapy and I am going to switch her to sotalol starting with this evening's dose. Since she has heart rate 55-60 I will start with a modest dose of 40 mg twice daily. Anticipate keeping her in the hospital probably until Monday as we load her with sotalol and watch for proarrhythmia. Blair Garza MD [facility] History of Present Illness History of Present Illness Consult date/time: 06/24/23 09:43 Reason For Visit: a fib, rvr, elevated troponin Narrative: This is a very pleasant 77-year-old lady that I am seeing at the request of the hospitalist because of atrial arrhythmias. She is unknown to me prior to this a at our encounter but she is known to my partner, Dr. Lerner. She has a history of recently diagnosed coronary artery disease when she presented to this hospital in April of this year with chest pain and had evidence of non ST elevation [place]. She was brought to the cardiac catheterization lab where she was found to have high-grade disease in the LAD and right coronary artery. PCI of this was attempted on successfully and she was transferred to [facility] with an intra-aortic balloon pump in place for surgical revascularization. She received a XIOMY graft to the proximal and distal LAD as well as a saphenous vein graft to the posterior descending artery. She recovered uneventfully in the hospital she did have transient postop atrial fibrillation which was treated with amiodarone but she was not discharged on antiarrhythmic therapy. Since then she has been in the hospital at least 2 or 3 times with recurrent symptomatic palpitations and evidence of atrial fibrillation. As a as it happened she was discharged a day before she came back to the hospital yesterday with recurrent tachycardia and palpitations. This has been treated with metoprolol and Xarelto and despite this she has recurrences with significant frequency. When she presented to the hospital yesterday she was actually in atrial flutter with rapid ventricular response. In the emergency room she spontaneously converted to sinus rhythm and became asymptomatic. Earlier this morning she had another episode of rapid AF and was given a dose of intravenous metoprolol. She is currently in sinus rhythm with a heart rate of 55-60. Review of Systems Constitutional: Constitutional: Reports no additional constitutional complaints Eyes: Eyes: Reports no additional eye complaints ENT: Reports system reviewed and no additional complaints, except as documented Cardiovascular: Cardiovascular: Reports palpitations Respiratory: Respiratory: Reports no additional respiratory complaints Gastrointestinal: Gastrointestinal: Reports no additional gastrointestinal complaints Musculoskeletal: Musculoskeletal: Reports no additional musculoskeletal complaints Integumentary/Breasts: Skin/Breast: Reports system reviewed and no additional complaints, except as docu Neurologic: Reports system reviewed and no additional complaints, except as documented Endocrine: Endocrine: Reports no additional endocrine complaints Hematologic/Lymphatic: Hematologic/Lymphatic: Reports no additional hematologic/lymphatic complaints Allergic/Immunologic: Allergic/Immunologic: Reports no additional allergic/immunologic complaints PMFSH Past Medical History Medical Histo
[2023-06-24] MEDS: ASPIRIN 81 MG ENTERIC TABLET PO (12:49)
--- NOTE | 2023-06-24 15:57 | PC.NURSE ---
Converted to Afib/Aflutter
--- NOTE | 2023-06-24 16:06 | PC.NURSE ---
Dr. Darnell aware of blood pressure and Heart rate.
[2023-06-24] MEDS: RIVAROXABAN 20 MG TABLET PO (16:25)
--- NOTE | 2023-06-24 17:22 | PM.IMPN ---
Progress Note: A&P Assessment and Plan (1) Paroxysmal atrial fibrillation with rapid ventricular response: Code(s): I48.0 - Paroxysmal atrial fibrillation Status: Acute Assessment and Plan: Patient presented with palpitations and found to be back in AFib/flutter. She received metoprolol 5mg IV x2 and converted to sinus rhythm. She was initially placed back on her metoprolol and dose advanced due to elevated BP. Cardiology consulted and patietn changed to sotalol today. She has been compliant with rivaroxaban which was continued here. Appreciate cardiology input Monitor on tele (2) Elevated troponin: Code(s): R79.89 - Other specified abnormal findings of blood chemistry Status: Acute Assessment and Plan: Troponin again elevated to 2.96. EKG shows inverted T waves in anterolateral leads but felt to be chronic finding. No chest paint and she has had recent re-vascularization. Elevated Trop likely secondary to #1. (3) Coronary disease: Code(s): I25.10 - Atherosclerotic heart disease of nikolai coronary artery without angina pectoris Status: Acute Assessment and Plan: Patient with CAD status post recent coronary artery bypass graft Continue ASA. Add Zetia. (4) HTN (hypertension), benign: Code(s): I10 - Essential (primary) hypertension Status: Acute Assessment and Plan: Patient's blood pressure was reviewed on 06/23 Blood pressure poorly controlled up to 212/101. Lisinopril resumed with good results. Will continue to monitor Plan Code status - full DVT prophylaxis - Xarelto Subjective Date/time seen: 06/24/23 17:22 Interval history: 77yo female with depression and elevated blood pressure who presents with complaints of palpitations and found to be in AFlutter She feels well. No obvious trigger that she feels she did to explain going back into AFib/flutter. Eating well. Exam Narrative: AF 96.8 130/83 71 18 98% Gen - NARD Chest - right base inspiratory crackles o/w clear, nml RR CV - RRR S1/S2. Tele showing patient back in AFlutter Abd - Soft, NT/ND, Positive BS Ext - No pedal edema Psych - Nml mood and affect Skin - Warm and dry Objective Data Vital Signs Vital Signs: Vital Signs - 24 hr 06/23/23 20:11 06/23/23 20:21 06/23/23 20:30 Temperature 97.3 F L 97.9 F Pulse Rate 139 H 132 H 134 H Respiratory Rate 20 16 Blood Pressure 150/104 H 152/111 H Pulse Oximetry 99 98 Oxygen Delivery Room Air Room Air 06/23/23 21:09 06/23/23 21:05 06/23/23 20:10 Temperature Pulse Rate 130 H 131 H Respiratory Rate Blood Pressure Pulse Oximetry 100 Oxygen Delivery Room Air 06/23/23 22:25 06/23/23 20:32 06/23/23 20:48 Temperature Pulse Rate 64 133 H 124 H Respiratory Rate 16 15 Blood Pressure Pulse Oximetry 99 98 Oxygen Delivery 06/23/23 21:00 06/23/23 21:07 06/23/23 21:28 Temperature Pulse Rate 131 H 124 H 116 H Respiratory Rate 18 25 H 17 Blood Pressure 124/85 Pulse Oximetry 98 98 98 Oxygen Delivery 06/23/23 22:00 06/23/23 22:15 06/23/23 23:32 Temperature 97.6 F Pulse Rate 67 64 67 Respiratory Rate 17 20 16 Blood Pressure 149/82 H Pulse Oximetry 99 98 100 Oxygen Delivery 06/23/23 23:25 06/24/23 00:00 06/23/23 23:25 Temperature Pulse Rate 60 63 72 Respiratory Rate 16 16 Blood Pressure Pulse Oximetry 100 100 Oxygen Delivery Room Air Room Air 06/24/23 00:00 06/24/23 02:00 06/24/23 04:00 Temperature 97.6 F Pulse Rate 63 69 72 Respiratory Rate 15 Blood Pressure 219/96 H Pulse Oximetry 100 Oxygen Delivery 06/24/23 04:00 06/24/23 05:24 06/24/23 05:24 Temperature Pulse Rate 72 Respiratory Rate 15 Blood Pressure 206/102 H 215/99 H Pulse Oximetry 100 Oxygen Delivery Room Air 06/24/23 05:35 06/24/23 06:15 06/24/23 04:00 Temperature Pulse Rate 72 66 Respiratory Rate Blood Pressure 219/9
[2023-06-24] MEDS: METOPROLOL TARTRATE INJ 5 MG/5 ML VIAL IV PUSH (17:41)
--- NOTE | 2023-06-24 17:45 | PC.NURSE ---
Metoprolol IVP given
--- NOTE | 2023-06-24 18:16 | PC.NURSE ---
Converted to Sinus rhythm.
[2023-06-24] MEDS: SOTALOL HCL 40 MG TABLET PO (21:15)
--- NOTE | 2023-06-24 23:15 | ECG_ITS ---
SEE SCANNED COPY FOR CONFIRMED REPORT MTDD
[2023-06-25] VITALS (20 sets, daily range): BP systolic 174–191; BP diastolic 80–90; PULSE 50–71; RESP 18; TEMP 36.4–37.1; O2SAT 97–100
[2023-06-25 04:35] LABS: Basophils Absolute Auto 0.1 K/mm3 (0.0-0.1); Basophils Percent Auto 0.8 % (0.2-1.2); Eosinophils Absolute Auto 0.2 K/mm3 (0-0.3); Eosinophils Percent Auto 2.6 % (0-4.4); Hematocrit 40.1 % (37.0-47.0); Hemoglobin 12.9 g/dL (12.0-15.0); Immature Granulocyte Absolute 0.03 K/mm3 (0.00-0.031); Immature Granulocyte Percent A 0.3 % (0-0.5); Lymphocytes Absolute Auto 2.17 K/mm3 (0.9-3.2); Lymphocytes Percent Auto 24.6 % (18.3-44.2); Mean Corpuscular HGB Conc 32.2 g/dl (32-36); Mean Corpuscular Hemoglobin 29.3 pg (26-34); Mean Corpuscular Volume 91.1 fl (80-100); Mean Platelet Volume 10.1 fl (7.4-10.4); Monocytes Absolute Auto 0.9 K/mm3 (0.1-0.6); Monocytes Percent Auto 9.6 % (2.6-8.5); Neutrophils Absolute Auto 5.5 K/mm3 (1.3-6.7); Neutrophils Percent Auto 62.1 % (45.5-73.1); Platelet Count Result 377 k/mm3 (150-375); Red Cell Distribution Width 14.5 % (11.5-14.5); White Blood Count 8.8 K/mm3 (4.5-10.0)
[2023-06-25 04:49] LABS: Alanine Aminotransferase 65 U/L (6-35); Albumin Level 3.5 g/dL (3.5-5.1); Alkaline Phosphatase 112 U/L (38-126); Anion Gap 6 mmol/L (4-12); Aspartate Amino Transferase 44 U/L (14-36); Bilirubin,Total 0.3 mg/dL (0.2-1.3); Blood Urea Nitrogen 11 mg/dL (7-17); Calcium 8.9 mg/dL (8.4-10.2); Carbon Dioxide 25 mmol/L (22-30); Chloride 105 mmol/L (98-107); Estimated CRCL calculation 53 ml/min; Estimated Glomerular Filt Rate > 60; Glucose 98 mg/dL (65-110); Magnesium 2.1 mg/dL (1.6-2.3); Potassium 3.5 mmol/L (3.4-5.0); Sodium 136 mmol/L (137-145)
[2023-06-25] MEDS: LEVOTHYROXINE SODIUM 100 MCG TABLET PO (06:35)
--- NOTE | 2023-06-25 08:34 | PM.PNCARD ---
Progress Note: A&P Assessment and Plan (1) Atrial flutter: Code(s): I48.92 - Unspecified atrial flutter Status: Acute Plan 77-year-old lady with coronary disease recent surgical revascularization and problematic atrial tachyarrhythmias. She is Teresa had atrial fib which was felt to simply be a postop phenomenon but has become more problematic than that. We have therefore transitioned her to sotalol and she is being started on that during this hospitalization. Recommend keeping her here at least until tomorrow morning to verify that she is tolerating low-dose sotalol and not having any recurrences of her AFib or flutter. Her blood pressure is concerning I am going to add amlodipine to her regimen starting today. Blair Garza MD [facility] Subjective Date/time seen: Date of service: 06/25/23 08:34 Interval history: Follow-up visit in this 77-year-old woman with: Coronary artery disease, recent CABG following failure of cutaneous revascularization. From that respect she is doing well clinically but she has been back to the hospital several times now with symptomatic atrial tachyarrhythmias previously atrial fib with RVR at this time with atrial flutter with RVR. Her previous metoprolol has been discontinued in favor of sotalol. 06/25/2023: She feels relatively well this morning relaxing in bed doing a crossword puzzle. Blood pressure is significantly elevated on current regimen of lisinopril at 20 mg daily. Discussed this with the patient and recommended advancing antihypertensive regimen while she is here. Exam Const: General: comfortable and no acute distress Other: Pleasant elderly lady no distress of any kind HENMT: Mouth: Yes moist mucous membranes Eyes: Sclera: sclerae normal Neck: Neck: supple Resp: Effort & Inspection: normal respiratory effort Auscultation: clear to auscultation bilaterally Cardio: Rate: bradycardic Rhythm: regular rhythm GI: GI Palp: Yes Soft to palpation Auscultation: normal bowel sounds Skin: General skin exam: normal color Neuro: Other: Alert and oriented x3 Extrem: Other: Good perfusion, no edema Objective Data Vital Signs Vital Signs: Vital Signs - 24 hr 06/24/23 10:00 06/24/23 11:54 06/24/23 12:00 Temperature 36.4 C L Pulse Rate 61 62 59 L Respiratory Rate 20 Blood Pressure 185/92 H Pulse Oximetry 97 Oxygen Delivery 06/24/23 12:00 06/24/23 14:00 06/24/23 16:48 Temperature 36.0 C L Pulse Rate 65 71 Respiratory Rate 18 Blood Pressure 212/101 H Pulse Oximetry 98 98 Oxygen Delivery Room Air 06/24/23 17:23 06/24/23 17:24 06/24/23 16:00 Temperature Pulse Rate 140 H Respiratory Rate Blood Pressure 146/100 H 130/83 Pulse Oximetry Oxygen Delivery 06/24/23 16:00 06/24/23 17:41 06/24/23 18:00 Temperature Pulse Rate 138 H 125 H Respiratory Rate Blood Pressure Pulse Oximetry 98 Oxygen Delivery Room Air 06/24/23 19:50 06/24/23 20:00 06/24/23 21:15 Temperature 36.4 C Pulse Rate 69 69 70 Respiratory Rate 18 18 Blood Pressure 181/94 H Pulse Oximetry 99 99 Oxygen Delivery Room Air 06/24/23 23:33 06/24/23 23:38 06/24/23 20:00 Temperature 36.4 C L Pulse Rate 62 62 67 Respiratory Rate 16 16 Blood Pressure 189/96 H Pulse Oximetry 96 96 Oxygen Delivery Room Air 06/24/23 22:00 06/25/23 00:00 06/25/23 02:00 Temperature Pulse Rate 63 58 L 60 Respiratory Rate Blood Pressure Pulse Oximetry Oxygen Delivery 06/25/23 04:29 06/25/23 04:00 06/25/23 04:00 Temperature 36.4 C Pulse Rate 64 64 61 Respiratory Rate 18 18 Blood Pressure 191/87 H Pulse Oximetry 98 98 Oxygen Delivery Room Air 06/25/23 06:00 06/25/23 07:59 Temperature 36.9 C Pulse Rate 64 50 L Respiratory Rate 18 Blood Pressure 179/80 H Pulse Oximetry 100 Oxygen Delivery Intake/Output Intake/Output: Intake & Output 06/22/23
[2023-06-25] MEDS: EZETIMIBE 10 MG TABLET PO (09:08)
[2023-06-25] MEDS: SERTRALINE HCL 50 MG TABLET PO (09:08)
[2023-06-25] MEDS: lisinopriL 20 MG TABLET PO (09:08)
[2023-06-25] MEDS: amLODIPine BESYLATE 5 MG TABLET 10 MG PO (09:08)
[2023-06-25] MEDS: SOTALOL HCL 40 MG TABLET PO ×2 (09:08→20:20)
--- NOTE | 2023-06-25 10:07 | ECG_ITS ---
SEE SCANNED COPY FOR CONFIRMED REPORT MTDD
[2023-06-25] MEDS: ASPIRIN 81 MG ENTERIC TABLET PO (12:16)
--- NOTE | 2023-06-25 14:29 | PM.IMPN ---
Progress Note: A&P Assessment and Plan (1) Paroxysmal atrial fibrillation with rapid ventricular response: Code(s): I48.0 - Paroxysmal atrial fibrillation Status: Acute Assessment and Plan: Patient presented with palpitations and found to be back in AFib/flutter. She received metoprolol 5mg IV x2 and converted to sinus rhythm. She was initially placed back on her metoprolol and dose advanced due to elevated BP. Cardiology consulted and patient changed to sotalol 06/24/23. She went back into AFlutter last evening but converted with repeat metoprolol dose. She has been compliant with rivaroxaban which was continued here. Appreciate cardiology input Monitor on tele (2) Elevated troponin: Code(s): R79.89 - Other specified abnormal findings of blood chemistry Status: Acute Assessment and Plan: Troponin again elevated to 2.96. EKG shows inverted T waves in anterolateral leads but felt to be chronic finding. No chest pain and she has had recent re-vascularization. Elevated Trop likely secondary to #1. (3) Coronary disease: Code(s): I25.10 - Atherosclerotic heart disease of [place] coronary artery without angina pectoris Status: Acute Assessment and Plan: Patient with CAD status post recent coronary artery bypass graft Continue ASA and Zetia. (4) HTN (hypertension), benign: Code(s): I10 - Essential (primary) hypertension Status: Acute Assessment and Plan: Patient's blood pressure was reviewed on 06/24 Blood pressure poorly controlled up to 212/101. Lisinopril resumed with improvement Will continue to monitor for now Plan Code status - full DVT prophylaxis - Xarelto Subjective Date/time seen: 06/25/23 14:29 Interval history: 77yo female with depression and elevated blood pressure who presents with complaints of palpitations and found to be in AFlutter No issues overnight. No CP or SOB. Converted to sinus last night and no recurrence overnight. No n/v. Walking in the halls. Exam Narrative: AF 97.9 176/82 66 18 99% Gen - NARD Chest - few basilar crackles o/w clear, nml RR CV - RRR S1/S2. Tele showing sinus mechanism Abd - Soft, NT/ND, Positive BS Ext - No pedal edema Psych - Nml mood and affect Skin - Warm and dry Objective Data Vital Signs Vital Signs: Vital Signs - 24 hr 06/24/23 16:48 06/24/23 17:23 06/24/23 17:24 Temperature 96.8 F L Pulse Rate 71 Respiratory Rate 18 Blood Pressure 212/101 H 146/100 H 130/83 Pulse Oximetry 98 Oxygen Delivery 06/24/23 16:00 06/24/23 16:00 06/24/23 17:41 Temperature Pulse Rate 140 H 138 H Respiratory Rate Blood Pressure Pulse Oximetry 98 Oxygen Delivery Room Air 06/24/23 18:00 06/24/23 19:50 06/24/23 20:00 Temperature 97.6 F Pulse Rate 125 H 69 69 Respiratory Rate 18 18 Blood Pressure 181/94 H Pulse Oximetry 99 99 Oxygen Delivery Room Air 06/24/23 21:15 06/24/23 23:33 06/24/23 23:38 Temperature 97.5 F L Pulse Rate 70 62 62 Respiratory Rate 16 16 Blood Pressure 189/96 H Pulse Oximetry 96 96 Oxygen Delivery Room Air 06/24/23 20:00 06/24/23 22:00 06/25/23 00:00 Temperature Pulse Rate 67 63 58 L Respiratory Rate Blood Pressure Pulse Oximetry Oxygen Delivery 06/25/23 02:00 06/25/23 04:29 06/25/23 04:00 Temperature 97.6 F Pulse Rate 60 64 64 Respiratory Rate 18 18 Blood Pressure 191/87 H Pulse Oximetry 98 98 Oxygen Delivery Room Air 06/25/23 04:00 06/25/23 06:00 06/25/23 07:59 Temperature 98.5 F Pulse Rate 61 64 50 L Respiratory Rate 18 Blood Pressure 179/80 H Pulse Oximetry 100 Oxygen Delivery 06/25/23 08:00 06/25/23 08:00 06/25/23 10:00 Temperature Pulse Rate 63 64 Respiratory Rate Blood Pressure Pulse Oximetry Oxygen Delivery Room Air 06/25/23 11:50 06/25/23 12:00 06/25/23 12:00 Temperature 97.9 F Pulse Rate 64 66 Res
[2023-06-25] MEDS: RIVAROXABAN 20 MG TABLET PO (17:07)
--- NOTE | 2023-06-25 22:22 | ECG_ITS ---
SEE SCANNED COPY FOR CONFIRMED REPORT MTDD
[2023-06-26] VITALS (20 sets, daily range): BP systolic 157–196; BP diastolic 75–108; PULSE 57–72; RESP 16–18; TEMP 35.8–36.6; O2SAT 95–100; BMI 18.3
[2023-06-26] MEDS: LEVOTHYROXINE SODIUM 100 MCG TABLET PO (06:28)
[2023-06-26] MEDS: hydroCHLOROthiazide 12.5 MG CAPSULE PO (08:59)
[2023-06-26] MEDS: EZETIMIBE 10 MG TABLET PO (08:59)
[2023-06-26] MEDS: lisinopriL 20 MG TABLET PO (09:00)
[2023-06-26] MEDS: SERTRALINE HCL 50 MG TABLET PO (09:00)
[2023-06-26] MEDS: amLODIPine BESYLATE 5 MG TABLET 10 MG PO (09:00)
[2023-06-26] MEDS: SOTALOL HCL 40 MG TABLET PO ×2 (09:00→20:54)
--- NOTE | 2023-06-26 10:36 | ECG_ITS ---
SEE SCANNED COPY FOR CONFIRMED REPORT MTDD
--- NOTE | 2023-06-26 10:45 | PM.PNCARD ---
Progress Note: A&P Assessment and Plan (1) Atrial flutter: Code(s): I48.92 - Unspecified atrial flutter Status: Acute Assessment and Plan: She remains in sinus rhythm on sotalol. QTc is stable, 472 this morning after receiving her 3rd dose of sotalol. Will continue to monitor her in the hospital until she has completed the 5 loading doses. Assuming she remains in sinus rhythm with no significant QTc prolongation or proarrhythmias, she can be discharged tomorrow. Continue anticoagulation with Xarelto. (2) HTN (hypertension), benign: Code(s): I10 - Essential (primary) hypertension Status: Acute (3) Coronary disease: Code(s): I25.10 - Atherosclerotic heart disease of [place] coronary artery without angina pectoris Status: Acute Subjective Date/time seen: 06/26/23 10:45 Interval history: Follow-up visit in this 77-year-old woman with: Coronary artery disease, recent CABG following failure of cutaneous revascularization. From that respect she is doing well clinically but she has been back to the hospital several times now with symptomatic atrial tachyarrhythmias previously atrial fib with RVR at this time with atrial flutter with RVR. Her previous metoprolol has been discontinued in favor of sotalol. 06/25/2023: She feels relatively well this morning relaxing in bed doing a crossword puzzle. Blood pressure is significantly elevated on current regimen of lisinopril at 20 mg daily. Discussed this with the patient and recommended advancing antihypertensive regimen while she is here. Date of service 06/26/2023: She feels well today and has no complaints. She is concerned that her blood pressure remains elevated. Remains in sinus rhythm. Review of Systems Constitutional: Constitutional: Reports no additional constitutional complaints Eyes: Eyes: Reports no additional eye complaints ENT: Reports system reviewed and no additional complaints, except as documented Cardiovascular: Cardiovascular: Reports palpitations Respiratory: Respiratory: Reports no additional respiratory complaints Gastrointestinal: Gastrointestinal: Reports no additional gastrointestinal complaints Musculoskeletal: Musculoskeletal: Reports no additional musculoskeletal complaints Integumentary/Breasts: Skin/Breast: Reports system reviewed and no additional complaints, except as docu Neurologic: Reports system reviewed and no additional complaints, except as documented Endocrine: Endocrine: Reports no additional endocrine complaints and Reports palpitations Hematologic/Lymphatic: Hematologic/Lymphatic: Reports no additional hematologic/lymphatic complaints Allergic/Immunologic: Allergic/Immunologic: Reports no additional allergic/immunologic complaints Exam Const: General: comfortable and no acute distress Other: Pleasant elderly lady no distress of any kind HENMT: Mouth: Yes moist mucous membranes Eyes: Sclera: sclerae normal Neck: Neck: supple and no JVD Resp: Effort & Inspection: normal respiratory effort Auscultation: clear to auscultation bilaterally Other: Sternotomy is a healing wound nicely Cardio: Rate: regular rate and bradycardic Rhythm: regular rhythm Other: No audible murmur gallop or rub GI: Auscultation: normal bowel sounds Skin: General skin exam: normal color Neuro: Other: Alert and oriented x3 Extrem: General: normal to inspection Other: Good perfusion, no edema Objective Data Vital Signs Vital Signs: Vital Signs - 24 hr 06/25/23 11:50 06/25/23 12:00 06/25/23 12:00 Temperature 36.6 C Pulse Rate 64 66 Respiratory Rate 18 Blood Pressure 176/82 H Pulse Oximetry 99 Oxygen Delivery Room Air 06/25/23 14:00 06/25/23 16:00 06/25/23 16:00 Temperature 37.1 C Pulse Rate 67 70 Respiratory Rate 18 Blood Pressure 174/90 H Pulse Oximetry 97 Oxygen Delivery Room Air 06/25/23 16:00 06/25/23 18:00
[2023-06-26] MEDS: ASPIRIN 81 MG ENTERIC TABLET PO (12:41)
--- NOTE | 2023-06-26 14:35 | PM.IMPN ---
Progress Note: A&P Assessment and Plan (1) Paroxysmal atrial fibrillation with rapid ventricular response: Code(s): I48.0 - Paroxysmal atrial fibrillation Status: Acute Assessment and Plan: Patient presented with palpitations and found to be back in AFib/flutter. She received metoprolol 5mg IV x2 and converted to sinus rhythm. She was initially placed back on her metoprolol and dose advanced due to elevated BP. Cardiology consulted and patient changed to sotalol 06/24/23. She went back into AFlutter evening of 06/23 but converted with repeat metoprolol dose. She has been compliant with rivaroxaban which was continued here. Appreciate cardiology input Monitor on tele Home tomorrow (2) Elevated troponin: Code(s): R79.89 - Other specified abnormal findings of blood chemistry Status: Acute Assessment and Plan: Troponin again elevated to 2.96. EKG shows inverted T waves in anterolateral leads but felt to be chronic finding. No chest pain and she has had recent re-vascularization. Elevated Trop likely secondary to #1. (3) Coronary disease: Code(s): I25.10 - Atherosclerotic heart disease of [place] coronary artery without angina pectoris Status: Acute Assessment and Plan: Patient with CAD status post recent coronary artery bypass graft Continue ASA and Zetia. (4) HTN (hypertension), benign: Code(s): I10 - Essential (primary) hypertension Status: Acute Assessment and Plan: Patient's blood pressure was reviewed on 06/24 Blood pressure poorly controlled up to 212/101. Lisinopril resumed with improvement. Norvasc added BP still elevated. Add HCTZ Will continue to monitor for now Plan Code status - full DVT prophylaxis - Xarelto Subjective Date/time seen: 06/26/23 14:35 Interval history: 77yo female with depression and elevated blood pressure who presents with complaints of palpitations and found to be in AFlutter Feels well today. No complaints. No CP or SOB. Exam Narrative: AF 96.4 157/76 59 18 99% Gen - NARD Chest - few basilar crackles R>L o/w clear, nml RR CV - RRR S1/S2 Abd - Soft, NT/ND, Positive BS Ext - No pedal edema Psych - Nml mood and affect Skin - Warm and dry Objective Data Vital Signs Vital Signs: Vital Signs - 24 hr 06/25/23 16:00 06/25/23 16:00 06/25/23 16:00 Temperature 98.7 F Pulse Rate 70 71 Respiratory Rate 18 Blood Pressure 174/90 H Pulse Oximetry 97 Oxygen Delivery Room Air 06/25/23 18:00 06/25/23 19:31 06/25/23 20:20 Temperature 97.9 F Pulse Rate 68 71 68 Respiratory Rate 18 Blood Pressure 180/88 H Pulse Oximetry 98 Oxygen Delivery 06/25/23 20:00 06/25/23 20:00 06/25/23 22:00 Temperature Pulse Rate 71 67 59 L Respiratory Rate 18 Blood Pressure Pulse Oximetry 98 Oxygen Delivery Room Air 06/25/23 23:34 06/25/23 23:53 06/26/23 00:00 Temperature 97.6 F Pulse Rate 60 60 57 L Respiratory Rate 18 18 Blood Pressure 177/86 H Pulse Oximetry 98 98 Oxygen Delivery Room Air 06/26/23 02:00 06/26/23 04:01 06/25/23 21:47 Temperature 97.6 F Pulse Rate 61 63 Respiratory Rate 18 Blood Pressure 196/88 H Pulse Oximetry 98 98 Oxygen Delivery Room Air 06/26/23 04:00 06/26/23 04:00 06/26/23 05:34 Temperature Pulse Rate 63 59 L 62 Respiratory Rate 18 Blood Pressure Pulse Oximetry 98 Oxygen Delivery Room Air 06/26/23 07:39 06/26/23 07:40 06/26/23 11:23 Temperature 97.8 F 96.4 F L Pulse Rate 65 59 L Respiratory Rate 16 18 Blood Pressure 189/108 H 172/87 H 157/76 H Pulse Oximetry 99 99 Oxygen Delivery Intake/Output Intake/Output: Intake & Output 06/23/23 06/24/23 06/25/23 06/26/23 23:59 23:59 23:59 23:59 Intake Total 1100 1020 390 Output Total 2100 320 350 Balance -1000 700 40 Meds/Results Medications: Active Medications Generic Name Dose Route Start Last Admin Tr
[2023-06-26] MEDS: RIVAROXABAN 20 MG TABLET PO (16:57)
[2023-06-27] VITALS (10 sets, daily range): BP systolic 139–163; BP diastolic 78–88; PULSE 58–72; RESP 16–20; TEMP 35.9–36.6; O2SAT 95–100
[2023-06-27] MEDS: LEVOTHYROXINE SODIUM 100 MCG TABLET PO (06:13)
[2023-06-27] MEDS: amLODIPine BESYLATE 5 MG TABLET 10 MG PO (08:27)
[2023-06-27] MEDS: EZETIMIBE 10 MG TABLET PO (08:27)
[2023-06-27] MEDS: SOTALOL HCL 40 MG TABLET PO (08:27)
[2023-06-27] MEDS: hydroCHLOROthiazide 12.5 MG CAPSULE PO (08:27)
[2023-06-27] MEDS: SERTRALINE HCL 50 MG TABLET PO (08:29)
[2023-06-27] MEDS: lisinopriL 20 MG TABLET 40 MG PO (08:32)
--- NOTE | 2023-06-27 10:40 | ECG_ITS ---
SEE SCANNED COPY FOR CONFIRMED REPORT MTDD
--- NOTE | 2023-06-27 12:24 | PM.DS ---
DS: Admitting Diagnosis Discharge Date 06/27/2023 Admitting Diagnosis ?Palpitations DS: Discharge Diagnosis Discharge Diagnosis (1) Paroxysmal atrial fibrillation with rapid ventricular response: Code(s): I48.0 - Paroxysmal atrial fibrillation Status: Acute Assessment and Plan: Patient presented with palpitations and found to be back in AFib/flutter. She received metoprolol 5mg IV x2 and converted to sinus rhythm. She was initially placed back on her metoprolol and dose advanced due to elevated BP. Cardiology consulted and patient changed to sotalol 06/24/23. She went back into AFlutter evening of 06/23 but converted with repeat metoprolol dose. She has been compliant with rivaroxaban which was continued here. ok to dc as per cardiology team DC on sotalol 40 mg po bid (2) Elevated troponin: Code(s): R79.89 - Other specified abnormal findings of blood chemistry Status: Acute Assessment and Plan: Troponin again elevated to 2.96. EKG shows inverted T waves in anterolateral leads but felt to be chronic finding. No chest pain and she has had recent re-vascularization. Elevated Trop likely secondary to #1. (3) Coronary disease: Code(s): I25.10 - Atherosclerotic heart disease of [place] coronary artery without angina pectoris Status: Acute Assessment and Plan: Patient with CAD status post recent coronary artery bypass graft Continue ASA and Zetia. (4) HTN (hypertension), benign: Code(s): I10 - Essential (primary) hypertension Status: Acute Assessment and Plan: Patient's blood pressure was reviewed on 06/24 Blood pressure poorly controlled up to 212/101. Lisinopril resumed with improvement. [facility] DS: Summary Hospital Course Hospital Course: 77-year-old female with past medical history significant for coronary artery disease, patient is status post coronary artery bypass graft on April of 2023,? type diabetes mellitus, hypertension, atrial fibrillation.? Patient has had several visits to the emergency room due to palpitations patient was found to have atrial fibrillation with rapid ventricular response has had several episodes 2 days she was brought back to the emergency room after having an episode of palpitations, near syncope, diaphoresis, denies? chest pain.? Patient? has been admitted for further evaluation management and treatment and sotalol loading. Time Spent with Patient Time attestation: Total time spent providing and/or coordinating discharge services:40mins on day of dc Exam Narrative: AF 96.4 157/76 59 18 99% Gen - NARD Chest -clear lungs CV - RRR S1/S2 Abd - Soft, NT/ND, Positive BS Ext - No pedal edema Psych - Nml mood and affect Skin - Warm and dry Discharge Plan Discharge Attending physician on discharge: Maggie Khan Consulting providers: Blair Garza Discharging Clinician: Maggie Khan Anticipated Discharge Date/Time: 06/27/23 12:23 Patient Disposition: Home, Self-Care Activity: as tolerated Diet: heart healthy Patient Instructions: Antibiotic Form, Sotalol (By mouth), Rivaroxaban (By mouth), A-fib (Atrial Fibrillation) (DC) Stand Alone Forms: General Discharge Information Follow-up/Referrals: Maria Eugenia Kelly, [facility] [Advanced Practice Nurse] - Discharge Medications: New hydrochlorothiazide 12.5 mg Capsule 12.5 mg PO QAM Qty: 30 0RF lisinopril 20 mg Tablet 40 mg PO QAM Qty: 30 0RF amlodipine [Norvasc] 5 mg Tablet 10 mg PO QAM Qty: 30 0RF sotalol 80 mg tablet 40 mg PO BID Qty: 30 1RF Continued aspirin 81 mg tablet,delayed release (DR/EC) 81 mg PO .EVERY AFTERNOON levothyroxine 100 mcg tablet 100 mcg PO DAILY sertraline 50 mg tablet 50 mg PO DAILY ezetimibe [Zetia] 10 mg Tablet 10 mg PO QAM Qty: 30 1RF Xarelto 20 mg Tablet 20 mg PO DAILY@1700 Qty: 30 1RF Discontinued lisinopril 20 mg
[2023-06-27] MEDS: ASPIRIN 81 MG ENTERIC TABLET PO (12:33)
== END 2023-06-27 13:30 | disposition home or self-care (01) | DRG 310 ==
LOC: ANHED 22:10 → ANHIMU 22:16
PROVIDERS: Emergency Medicine; Internal Medicine; Admitting Provider Internal Medicine; Emergency Provider Emergency Medicine; PCP Emergency Medicine; Visit Provider Family Medicine
DX: I48.0 Paroxysmal atrial fibrillation (principal); I48.92 Unspecified atrial flutter; E03.9 Hypothyroidism, unspecified; I25.10 Atherosclerotic heart disease of native coronary artery without angina pectoris; E11.9 Type 2 diabetes mellitus without complications; E78.5 Hyperlipidemia, unspecified; Z87.891 Personal history of nicotine dependence; Z95.1 Presence of aortocoronary bypass graft
CPT/HCPCS: 36415; 71045; 71046; 71275; 80053; 81001; 83690; 83735; 84443; 84484; 85025; 85610; 85730; 87086; 87186; 93005; 96360; 96361; 96374; 96375; 99285; A9270; G0378; J7030; Q9967

== ENCOUNTER 2023-07-12 21:49 | Inpatient (IN) | payer MEDICARE, SELFPAY ==
--- NOTE | ~2023-07-12 | XR_ITS ---
EXAMINATION: XR chest 2V Exam Date/Time: 07/12/2023 22:00 CDT HISTORY: weakness Comparison: 06/23/2023. RESULT: Lines, tubes, and devices: Intact sternotomy wires. Mediastinal surgical clips. Ostial marker. Aband oned epicardial pacing wire. Lungs and pleura: Chronic left hemidiaphragm elevation. Streaky bibasilar atelectasis/scar. Cardiomediastinal silhouette: Stable. Other: No acute osseous or upper abdominal finding. IMPRESSION: No acute cardiopulmonary process. Reviewed, dictated and finalized at location K.
[2023-07-12 21:50] VITALS: BP 124/78; PULSE 127; RESP 16; TEMP 36.8; O2SAT 98
[2023-07-12 21:55] VITALS: PULSE 128; O2SAT 98
--- NOTE | 2023-07-12 21:55 | ECG_ITS ---
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 Measurements Intervals [place] Rate: 127 P: 0 [place]: 0 QRS: -26 QRSD: 126 T: 156 QT: 335 QTc: 488 Interpretive Statements ATRIAL FLUTTER/TACHYCARDIA WITH RAPID VENTRICULAR RESPONSE RIGHT BUNDLE BRANCH BLOCK LEFT VENTRICULAR HYPERTROPHY AND ST-T CHANGE INFERIOR MYOCARDIAL INFARCTION , AGE INDETERMINATE ST-T WAVE ABNORMALITY IN ANTEROLATERAL LEADS- CONSIDER ISCHEMIA ABNORMAL ECG No previous ECG available for comparison Electronically Signed On 07-13-2023 11:12:28 CDT by Yovanny Terry D.O.
[2023-07-12] MEDS: dilTIAZem HCl INJ 25 MG/5 ML VIAL 10 MG IV PUSH (22:23)
[2023-07-12 22:24] LABS: Basophils Percent Auto 0.2 % (0.2-1.2); Eosinophils Absolute Auto 0.1 K/mm3 (0-0.3); Eosinophils Percent Auto 0.7 % (0-4.4); Hematocrit 36.6 % (37.0-47.0); Hemoglobin 12.3 g/dL (12.0-15.0); Immature Granulocyte Absolute 0.08 K/mm3 (0.00-0.031); Immature Granulocyte Percent A 0.5 % (0-0.5); Lymphocytes Absolute Auto 1.96 K/mm3 (0.9-3.2); Lymphocytes Percent Auto 11.8 % (18.3-44.2); Mean Corpuscular HGB Conc 33.6 g/dl (32-36); Mean Corpuscular Hemoglobin 29.4 pg (26-34); Mean Corpuscular Volume 87.6 fl (80-100); Mean Platelet Volume 9.7 fl (7.4-10.4); Monocytes Absolute Auto 1.6 K/mm3 (0.1-0.6); Monocytes Percent Auto 9.4 % (2.6-8.5); Neutrophils Absolute Auto 12.9 K/mm3 (1.3-6.7); Neutrophils Percent Auto 77.4 % (45.5-73.1); Platelet Count Result 293 k/mm3 (150-375); Red Blood Count 4.18 M/mm3 (4.2-5.4); Red Cell Distribution Width 14.7 % (11.5-14.5); White Blood Count 16.7 K/mm3 (4.5-10.0)
[2023-07-12] MEDS: SODIUM CHLORIDE 0.9% IV 1,000 ML 999 ML IV CONT (22:59)
--- NOTE | 2023-07-12 23:00 | ECG_ITS ---
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 Measurements Intervals [place] Rate: 114 P: 0 [place]: 0 QRS: -16 QRSD: 88 T: 139 QT: 371 QTc: 511 Interpretive Statements ATRIAL FLUTTER/TACHYCARDIA WITH RAPID VENTRICULAR RESPONSE LEFT VENTRICULAR HYPERTROPH WITH ST-T COVARRUBIAS INFERIOR MYOCARDIAL INFARCTION , PROBABLY OLD ST DEVIATION AND MODERATE T-WAVE ABNORMALITY, CONSIDER ANTEROLATERAL ISCHEMIA [-0.1+ mV T WAVE IN V3-V6] BASELINE ARTIFACT- I, II, III, AVR, AVF ABNORMAL ECG Compared to ECG 07/12/2023 21:55:06 HEART RATE HAS DECREASED Electronically Signed On 07-13-2023 16:43:26 CDT by Yovanny Terry D.O.
[2023-07-12 23:11] VITALS: BP 94/69; PULSE 116; RESP 19; O2SAT 97
[2023-07-12 23:18] VITALS: BP 120/71; PULSE 104
[2023-07-12] MEDS: dilTIAZem 100 MG/100 ML 100 MG/100 ML BAG IV CONT (23:18)
--- NOTE | 2023-07-12 23:40 | ED.GENADULT ---
HPI - General Adult General Chief complaint: Weakness Stated complaint: WEAK, ARHYTHMIA Time Seen by Provider: 07/12/23 22:06 History of Present Illness HPI narrative: patient is a 77-year-old female who presents emergency department with chief complaint of generalized weakness. Patient reports that throughout the day she has been feeling weak patient reports she has had issues with atrial flutter since she had a cardiac bypass patient reported that her heart rate was going faster AFib was out of control patient takes sotalol patient reports that she feels generally weak I also noticed that her blood pressure was running on the lower side today the patient denies chest pain Related Data Home Medications Medication Instructions Recorded Confirmed aspirin 81 mg tablet,delayed 81 mg PO .EVERY AFTERNOON 06/21/23 06/24/23 release levothyroxine 100 mcg tablet 100 mcg PO DAILY 06/21/23 06/24/23 sertraline 50 mg tablet 50 mg PO DAILY 06/21/23 06/24/23 Allergies Allergy/AdvReac Type Severity Reaction Status Date / Time Lfogsmh-DUZ-AxF Reductase Allergy Unknown unknown Verified 06/24/23 00:11 Inhibitor [Uyxknxu-Exa-Car Reductase Inhibitor] Review of Systems Review of Systems: A 10 system review of systems was completed on the patient and is negative except for what is stated in the HPI. Nursing and ancillary documentation was reviewed. [facility] Past Medical History Medical History Adult hypothyroidism Bilateral leg cramps Chronic back pain Coronary disease Depression DM w/o complication type II Elevated blood pressure reading without diagnosis of hypertension Fatigue HTN (hypertension), benign Hyperglycemia Other and unspecified hyperlipidemia Other screening mammogram Screening cholesterol level Vitamin D deficiency Surgical History Surgical History 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 No alcohol or drug use. Lives at home with . They have a dog. 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 Smoking packs per day: 1 Smoking cigarettes per day: 20.0 Years smoked: 60 Smoking pack-years: 60.00 Smoking status: Former smoker Tobacco type: cigarettes Second hand tobacco smoke exposure: No Smoking end date: 04/26/23 Alcohol intake: never Drinks per week: 2 Substance use: never Substance use type: does not use Do You Feel Safe in your Home?: Yes Lack of Transportation: No Lack of Food: Never True Current Housing: I Have Housing Concerned About Future Housing: No Difficulty Paying Gas/Electric Bills: No Difficulty Paying for Meds: No Currently Unemployed: No Education: Bachelor's Degree Difficulty w/ Childcare or Family Care: No Spiritual care concerns: No Exam Narrative: GENERAL: Well-appearing, well-nourished, and in no acute distress. HEAD: Normocephalic, atraumatic. EYES: PERRLA and EOMI. ENT: Nares clear, no rhinorrhea or epistaxis. Mucous membranes moist. NECK: Supple. CHEST: Clear to auscultation. No respiratory distress. HEART: Tachycardic irregular rate and rhythm. No murmur heard. Normal peripheral pulses. ABDOMEN: Soft, nontender, nondistended, normal active bowel sounds. EXTREMITIES: Normal range of motion. No edema. SKIN: Warm, dry, no rash. NEURO: No focal deficits.
[2023-07-12 23:42] VITALS: BP 87/64; PULSE 129; RESP 24; O2SAT 97
--- NOTE | 2023-07-12 23:42 | PC.NURSE ---
Patient's new blood pressure on Cardiziem is 87/64. Notified EDP Dr. Dexter who VRBO 150mL/hr NS.
[2023-07-12] MEDS: SODIUM CHLORIDE 0.9% IV 1,000 ML 150 ML IV CONT (23:46)
[2023-07-12 23:55] VITALS: BP 99/74; PULSE 65
[2023-07-13] VITALS (21 sets, daily range): BP systolic 89–172; BP diastolic 47–73; PULSE 58–92; RESP 16–23; TEMP 36.2–37.7; O2SAT 95–99; BMI 19.5
[2023-07-13 00:35] LABS: Appearance Urine Clear (Clear); Bacteria Urine None Seen /hpf; Bilirubin Urine Negative (Negative); Blood Urine Trace (Negative); Color Urine Yellow (Yellow); Glucose Urine UA Negative (Negative); Ketones Urine Negative (Negative); Leukocyte Esterase Ur 1+ LEU/UL (Negative); Nitrate Urine Negative (Negative); Non Pathogenic Casts 0-2; Protein Urine Negative (Negative); Specific Grav Ur 1.013 (1.001-1.035); Squamous Epithelial Cell Urine None Seen /hpf (Few); WBC Urine 21-50 /hpf (0-3)
[2023-07-13 00:39] LABS: Add Urine Microscopic? YES
[2023-07-13 00:50] LABS: Alanine Aminotransferase 120 U/L (6-35); Albumin Level 3.3 g/dL (3.5-5.1); Alkaline Phosphatase 93 U/L (38-126); Anion Gap 6 mmol/L (4-12); Aspartate Amino Transferase 184 U/L (14-36); Bilirubin,Total 0.6 mg/dL (0.2-1.3); Blood Urea Nitrogen 17 mg/dL (7-17); Calcium 7.5 mg/dL (8.4-10.2); Carbon Dioxide 20 mmol/L (22-30); Chloride 102 mmol/L (98-107); Estimated CRCL calculation 51 ml/min; Estimated Glomerular Filt Rate > 60; Glucose 121 mg/dL (65-110); Magnesium 1.9 mg/dL (1.6-2.3); Potassium 3.6 mmol/L (3.4-5.0); Sodium 128 mmol/L (137-145)
[2023-07-13 01:07] LABS: NT Pro B Type Natriuretic Pept 2920 pg/mL (19.9-100); Troponin I 0.048 ng/mL (0.000-0.034)
[2023-07-13] MEDS: MAGNESIUM SULF 1 GM/D5W 100 ML 1 GM/100 ML BAG IVPB (01:16)
[2023-07-13 01:25] LABS: INR 1.3; Prothrombin Time 17.2 Seconds (11.1-14.7)
[2023-07-13 01:26] LABS: Partial Thromboplastin Time 40.2 Seconds (22.3-36.8)
--- NOTE | 2023-07-13 02:00 | ADMGEN ---
0200 This patient, Carmina Vasquez, was admitted to IMU Room 204-01. Patient/family oriented to hospital policies and general routines including ID bracelet, bed and alarms, visiting hours, pain management, procedures, bathroom and other care routines, personal items, smoking policy, room service/diet, and visiting hours. Information on how to activate the Rapid Response Team has been discussed. Patient/Family are encouraged to report perceived risks to care and to ask questions if they do not understand what they are told or what they should do.
--- NOTE | 2023-07-13 02:15 | ECG_ITS ---
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 Measurements Intervals [place] Rate: 62 P: -5 RI: 170 QRS: 73 QRSD: 92 T: -76 QT: 465 QTc: 473 Interpretive Statements SINUS RHYTHM LEFT ATRIAL ENLARGEMENT [-0.15mV P WAVE IN V1/V2] ST DEVIATION AND MODERATE T-WAVE ABNORMALITY, CONSIDER ANTEROLATERAL ISCHEMIA [-0.1+ mV T WAVE IN V3-V6] ST DEVIATION AND MODERATE T-WAVE ABNORMALITY, CONSIDER INFERIOR ISCHEMIA [-0.1+ mV T WAVE IN II/aVF] ABNORMAL ECG Compared to ECG 07/12/2023 21:55:[address] NOW PRESENT [address]-T wave abnormality now present Electronically Signed On 07-13-2023 07:49:37 CDT by Yovanny Terry D.O.
[2023-07-13 02:33] LABS: Free T4 Free Thyroxine Reflex 1.73 ng/dL (0.78-2.19)
--- NOTE | 2023-07-13 02:35 | PM.IMHP ---
H&P: HPI History of Present Illness Date/Time: 07/13/23 02:35 Chief Complaint: Near syncope Narrative: This is a 77-year-old female with past medical history significant for coronary artery disease, status post coronary artery bypass graft, triple-vessel disease, atrial fibrillation, Rate controlled anticoagulated, type diabetes mellitus. patient comes to the emergency room after having episode of dizziness, near syncope, palpitations. Has been in and out of the hospital for same problem for the last 3 months or so. Preliminary workup was significant for CBC with leukocyte count of 16,000, chemistry panel was significant for sodium 128, brain natriuretic peptide 2920, A urinalysis was significant for numerous WBCs present. Patient has been admitted for further evaluation management and treatment. EXAMINATION:? XR chest 2V Exam Date/Time:? 07/12/2023 22:00 CDT HISTORY: weakness ? Comparison:? 06/23/2023. RESULT: Lines, tubes, and devices:? Intact sternotomy wires. Mediastinal surgical clips. Ostial marker. Abandoned epicardial pacing wire. Lungs and pleura:? Chronic left hemidiaphragm elevation. Streaky bibasilar atelectasis/scar. Cardiomediastinal silhouette:? Stable. Other:? No acute osseous or upper abdominal finding. ? IMPRESSION: No acute cardiopulmonary process. Review of Systems Review of Systems: palpitations, dizziness, sob Constitutional: Constitutional: Reports chills and Denies fever(s) Eyes: Eyes: Denies change in vision ENT: Denies dysphagia, Denies vertigo, Reports dizziness, Denies nasal congestion and Denies odynophagia Cardiovascular: Cardiovascular: Denies chest pain at rest, Reports rapid heart rate, Denies pedal edema, Reports lightheadedness, Denies radiating jaw, neck or arm pain and Denies palpitations Respiratory: Respiratory: Denies chest congestion, Denies cough and Denies excessive phlegm production Gastrointestinal: Gastrointestinal: Denies abdominal pain, Denies nausea and Denies vomiting Genitourinary: Genitourinary: Denies dysuria Musculoskeletal: Musculoskeletal: Denies arthralgias Integumentary/Breasts: Skin/Breast: Denies rash Neurologic: Denies focal weakness and Denies Sensory deficit (Neuro) Psychiatric: Psychiatric: Reports no additional psychiatric complaints and Reports as per HPI Endocrine: Endocrine: Denies cold intolerance, Denies heat intolerance, Denies polyphagia, Denies polyuria and Denies palpitations Hematologic/Lymphatic: Hematologic/Lymphatic: Reports no additional hematologic/lymphatic complaints and Reports as per HPI Allergic/Immunologic: Allergic/Immunologic: Reports no additional allergic/immunologic complaints and Reports as per HPI PMF Past Medical History Medical History Adult hypothyroidism Bilateral leg cramps Chronic back pain Coronary disease Depression DM w/o complication type II Elevated blood pressure reading without diagnosis of hypertension Fatigue HTN (hypertension), benign Hyperglycemia Other and unspecified hyperlipidemia Other screening mammogram Screening cholesterol level Vitamin D deficiency Surgical History Surgical History 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 No alcohol or drug use. Lives at home with . They have a dog. 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
[2023-07-13 03:22] LABS: Total Triiodothyronine (T3) 0.69 NG/ML (0.97-1.69)
[2023-07-13] MEDS: LEVOTHYROXINE SODIUM 100 MCG TABLET PO (06:38)
[2023-07-13 07:59] LABS: Anion Gap 2 mmol/L (4-12); Blood Urea Nitrogen 13 mg/dL (7-17); Calcium 7.9 mg/dL (8.4-10.2); Carbon Dioxide 25 mmol/L (22-30); Chloride 103 mmol/L (98-107); Estimated CRCL calculation 66 ml/min; Estimated Glomerular Filt Rate > 60; Glucose 105 mg/dL (65-110); Potassium 3.5 mmol/L (3.4-5.0); Sodium 130 mmol/L (137-145)
[2023-07-13] MEDS: SERTRALINE HCL 50 MG TABLET PO (09:12)
[2023-07-13] MEDS: SOTALOL HCL 40 MG TABLET PO ×2 (09:12→20:00)
[2023-07-13 09:31] LABS: Troponin I 0.266 ng/mL (0.000-0.034)
--- NOTE | 2023-07-13 09:50 | PM.CNCAR ---
Assessment and Plan Assessment and plan (1) Atrial fibrillation with RVR: Code(s): I48.91 - Unspecified atrial fibrillation Status: Acute Assessment and Plan: Symptomatic recurrence of atrial fibrillation with RVR. Now back in sinus rhythm. Continue sotalol 40mg daily. Unable to increase sotalol or add rate controlling agent because her heart rate is already in the high 50's/low 60's in sinus. Additionally, she reports low blood pressure measurements at home and symptoms of orthostatic hypotension. So for now, will leave her on sotalol at current dose. Will send referral to EP Continue a/c with Eric CM for discharge from a cardiac perspective (2) Weakness: Code(s): R53.1 - Weakness Status: Acute Assessment and Plan: Complaining of generalized weakness and loss of strength in legs. Recommend outpatient physical therapy (3) Acute UTI: Code(s): N39.0 - Urinary tract infection, site not specified Status: Acute Assessment and Plan: On abx per hospitalist. (4) Coronary disease: Code(s): I25.10 - Atherosclerotic heart disease of [place] coronary artery without angina pectoris Status: Acute Assessment and Plan: multivessel CAD s/p CABG in April. Continue statin, ASA. History of Present Illness History of Present Illness Consult date/time: 07/13/23 09:50 Requesting physician: Tomas Steve MD Consult reason: atrial fibrillation Reason For Visit: Atrial flutter with rapid ventricular response, El Narrative: Carmina Vasquez is a 77 year old female with coronary artery disease status post CABG (JOSEPH to the proximal distal LAD, SVG to the PDA) in April of 2023 and atrial fibrillation managed with sotalol. She comes to the hospital because of palpitations that occurred while she was sitting in a chair watching TV at home. She came to the emergency department and was found to be in atrial fibrillation with rapid ventricular response. She was placed on a diltiazem drip and has converted back to sinus rhythm. Also being treated for UTI. Review of Systems Review of Systems: All systems reviewed & are unremarkable except as noted in HPI and below PMFSH Past Medical History Medical History Adult hypothyroidism Bilateral leg cramps Chronic back pain Coronary disease Depression DM w/o complication type II Elevated blood pressure reading without diagnosis of hypertension Fatigue HTN (hypertension), benign Hyperglycemia Other and unspecified hyperlipidemia Other screening mammogram Screening cholesterol level Vitamin D deficiency Surgical History Surgical History 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 No alcohol or drug use. Lives at home with . They have a dog. 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 Smoking packs per day: 1 Smoking cigarettes per day: 20.0 Years smoked: 60 Smoking pack-years: 60.00 Smoking status: Former smoker Tobacco type: cigarettes Second hand tobacco smoke exposure: No Smoking end date: 04/26/23 Alcohol intake: current Drinks per week: 2 Substance use: never Substance use type: does not use Do You Feel Safe in your Home?: Yes Lack of Transportation: No Lack of Food: Never True Current Housing: I Have Housing Concerned About Future Housing: No Difficul
[2023-07-13] MEDS: SODIUM CHLORIDE 0.9% IV 1,000 ML 75 ML IV CONT (15:38)
[2023-07-13] MEDS: ASPIRIN 81 MG ENTERIC TABLET PO (18:11)
[2023-07-13] MEDS: RIVAROXABAN 20 MG TABLET PO (18:11)
--- NOTE | 2023-07-13 19:26 | PM.IMPN ---
Progress Note: A&P Assessment and Plan (1) Atrial flutter: Code(s): I48.92 - Unspecified atrial flutter Status: Acute Assessment and Plan: admit to IMU under full inpatient status on diltiazem drip, successfully weaned off Continue with oral sotalol Cardiology consult given for evaluation and further treatment recommendations (2) Acute UTI: Code(s): N39.0 - Urinary tract infection, site not specified Status: Acute Assessment and Plan: Patient started on Rocephin Gentle IV hydration ordered with normal saline at 75 cc/hour for 1000cc Strict input and output monitoring Monitor renal functions closely Awaiting urine cultures (3) Chronic back pain: Code(s): M54.9 - Dorsalgia, unspecified; G89.29 - Other chronic pain Status: Acute Assessment and Plan: Tylenol p.r.n. (4) Paroxysmal atrial fibrillation with rapid ventricular response: Code(s): I48.0 - Paroxysmal atrial fibrillation Status: Acute Assessment and Plan: on sotalol and Xarelto (5) Coronary disease: Code(s): I25.10 - Atherosclerotic heart disease of [place] coronary artery without angina pectoris Status: Acute Assessment and Plan: status post coronary artery bypass graft Plan ? Patient seen and examined at bedside during my morning rounds ? Collaborated with patient's nurse at the bedside in detail and addressed all concerns ? Labs, electrolytes, radiology, investigations and test results reviewed ? Consult/Nursing/Ancilliary notes on the chart reviewed and appreciated ? Spoke with patient/family at the bedside and answered all the questions that they had Repeat labs in a.m. Electrolyte replacement as per protocol. Patient will be monitored very closely on the floor. Further recommendations as per the hospital course. Time Spent With Patient Time with patient: 15 - 25 minutes Subjective Date/time seen: 07/13/23 19:26 Interval history: Patient lying in bed during my morning rounds. Cardiology consult given for AFib with RVR. Continue with IV antibiotics for UTI. Patient started on gentle IV hydration. Review of Systems Review of Systems: 14 systems were reviewed with pertinent positives and negatives per HPI. Except as documented in the HPI/progress notes, all other systems were reviewed and are negative. All systems reviewed & are unremarkable except as noted in HPI and below Exam Narrative: PHYSICAL EXAMINATION: Vital signs: Please see the chart General physical exam: Patient lying in bed, pleasant and cooperative with exam, appears to be weak, tired and fatigued Head/eyes: Atraumatic, EOMI, PERRLA ENT: Moist mucous membranes, nasal passages clear Neck: Supple, full range of motion, trachea midline CVS: S1 + S2, irregularly irregular rate and rhythm, no murmurs Respiratory: Bilaterally decreased air entry in both lung ariza, mild B/L crackles, symmetric chest expansion, no distress Abdomen: Soft, non-tender, bowel sounds +ve, no organomegaly Extremities: No clubbing, no cyanosis, no edema, no calf tenderness Musculoskeletal: Moves all, adequate range of motion, no muscle spasms Skin: Warm, dry, no jaundice, no cyanosis Neurological: Awake, alert, oriented x 3, cranial nerves II-XII intact, no focal neurological deficits Psychiatric: Pleasant and cooperative with normal mood and affect.? Judgment and insight intact. Non suicidal Objective Data Vital Signs Vital Signs: Vital Signs - 24 hr 07/12/23 21:50 07/12/23 21:55 07/12/23 21:55 Temperature 36.8 C Pulse Rate 127 H 128 H Respiratory Rate 16 Blood Pressure 124/78 Pulse Oximetry 98 98 Oxygen Delivery Room Air Room Air Fraction of Inspired Oxygen 07/12/23 23:11 07/12/23 23:18 07/12/23 23:42 Temperature Pulse Rate 116 H 104 H 129 H Respiratory Rate 19 24 H Blood Pressure 94/69 L 120/71 87/64 L Pulse Oximetry 97 97 Oxygen Delivery Fraction of Inspired Oxygen
[2023-07-14] VITALS (10 sets, daily range): BP systolic 129–152; BP diastolic 65–73; PULSE 60–70; RESP 16–18; TEMP 36.4–37.3; O2SAT 97–99
[2023-07-14 04:16] LABS: Basophils Percent Auto 0.4 % (0.2-1.2); Eosinophils Absolute Auto 0.2 K/mm3 (0-0.3); Eosinophils Percent Auto 2.4 % (0-4.4); Hematocrit 33.8 % (37.0-47.0); Hemoglobin 11.1 g/dL (12.0-15.0); Immature Granulocyte Absolute 0.02 K/mm3 (0.00-0.031); Immature Granulocyte Percent A 0.2 % (0-0.5); Lymphocytes Absolute Auto 2.05 K/mm3 (0.9-3.2); Lymphocytes Percent Auto 25.4 % (18.3-44.2); Mean Corpuscular HGB Conc 32.8 g/dl (32-36); Mean Corpuscular Hemoglobin 29.3 pg (26-34); Mean Corpuscular Volume 89.2 fl (80-100); Mean Platelet Volume 10.2 fl (7.4-10.4); Monocytes Percent Auto 11.8 % (2.6-8.5); Neutrophils Absolute Auto 4.8 K/mm3 (1.3-6.7); Neutrophils Percent Auto 59.8 % (45.5-73.1); Platelet Count Result 260 k/mm3 (150-375); Red Blood Count 3.79 M/mm3 (4.2-5.4); Red Cell Distribution Width 14.9 % (11.5-14.5); White Blood Count 8.1 K/mm3 (4.5-10.0)
[2023-07-14 04:39] LABS: Anion Gap 4 mmol/L (4-12); Blood Urea Nitrogen 10 mg/dL (7-17); Calcium 7.8 mg/dL (8.4-10.2); Carbon Dioxide 24 mmol/L (22-30); Chloride 105 mmol/L (98-107); Estimated CRCL calculation 65 ml/min; Estimated Glomerular Filt Rate > 60; Glucose 91 mg/dL (65-110); Phosphorus 2.7 mg/dL (2.5-4.5); Potassium 3.6 mmol/L (3.4-5.0); Sodium 133 mmol/L (137-145)
[2023-07-14] MEDS: LEVOTHYROXINE SODIUM 100 MCG TABLET PO (06:28)
[2023-07-14] MEDS: SERTRALINE HCL 50 MG TABLET PO (08:21)
[2023-07-14] MEDS: SOTALOL HCL 40 MG TABLET PO (08:21)
--- NOTE | 2023-07-14 12:04 | PM.DS ---
DS: Admitting Diagnosis Discharge Date 07/14/2023: Admitting Diagnosis (1) Atrial flutter: ?Code(s): I48.92 - Unspecified atrial flutter ?Status:?Acute ?Assessment and Plan: ?admit to IMU ?on diltiazem drip (2) Acute UTI: ?Code(s): N39.0 - Urinary tract infection, site not specified ?Status:?Acute ?Assessment and Plan: ?patient started on Rocephin ?await cultures (3) Chronic back pain: ?Code(s): M54.9 - Dorsalgia, unspecified; G89.29 - Other chronic pain ?Status:?Acute ?Assessment and Plan: ?Tylenol p.r.n. (4) Paroxysmal atrial fibrillation with rapid ventricular response: ?Code(s): I48.0 - Paroxysmal atrial fibrillation ?Status:?Acute ?Assessment and Plan: ?on sotalol and Xarelto (5) Coronary disease: ?Code(s): I25.10 - Atherosclerotic heart disease of [place] coronary artery without angina pectoris ?Status:?Acute ?Assessment and Plan: ?status post coronary artery bypass graft DS: Discharge Diagnosis Discharge Diagnosis (1) Acute UTI: Code(s): N39.0 - Urinary tract infection, site not specified Status: Acute (2) Atrial flutter: Code(s): I48.92 - Unspecified atrial flutter Status: Acute (3) Atrial fibrillation with RVR: Code(s): I48.91 - Unspecified atrial fibrillation Status: Acute (4) Elevated troponin: Code(s): R79.89 - Other specified abnormal findings of blood chemistry Status: Acute (5) Paroxysmal atrial fibrillation with rapid ventricular response: Code(s): I48.0 - Paroxysmal atrial fibrillation Status: Acute (6) Weakness: Code(s): R53.1 - Weakness Status: Acute (7) HTN (hypertension), benign: Code(s): I10 - Essential (primary) hypertension Status: Acute (8) Paroxysmal A-fib: Code(s): I48.0 - Paroxysmal atrial fibrillation Status: Acute DS: Summary Hospital Course Reason for hospitalization: Patient admitted with palpitations and near syncopal episode Hospital Course: H&P: HPI History of Present Illness Date/Time: 07/13/23? 02:35 Chief Complaint: Near syncope Narrative: This is a 77-year-old female with past medical history significant for coronary artery disease, status post coronary artery bypass graft, triple-vessel disease,? atrial fibrillation,? Rate controlled anticoagulated, type diabetes mellitus. patient comes to the emergency room after having episode of dizziness, near syncope, palpitations.? Has been in and out of the hospital for same problem for the last 3 months or so.? Preliminary workup was significant for CBC with leukocyte count of 16,000, chemistry panel was significant for sodium 128, brain natriuretic peptide 2920,? A urinalysis was significant for numerous WBCs present.? Patient has been admitted for further evaluation management and treatment. HOSPITAL COURSE: 07/13/2023 : Assessment and Plan (1) Atrial flutter: ?Code(s): I48.92 - Unspecified atrial flutter ?Status:?Acute ?Assessment and Plan: ?admit to IMU under full inpatient status ?on diltiazem drip, successfully weaned off Continue with oral sotalol Cardiology consult given for evaluation and further treatment recommendations (2) Acute UTI: ?Code(s): N39.0 - Urinary tract infection, site not specified ?Status:?Acute ?Assessment and Plan: Patient started on Rocephin Gentle IV hydration ordered with normal saline at 75 cc/hour for 1000cc Strict input and output monitoring Monitor renal functions closely Awaiting urine cultures (3) Chronic back pain: ?Code(s): M54.9 - Dorsalgia, unspecified; G89.29 - Other chronic pain ?Status:?Acute ?Assessment and Plan: ?Tylenol p.r.n. (4) Paroxysmal atrial fibrillation with rapid ventricular response: ?Code(s): I48.0 - Paroxysmal atrial fibrillation ?Status:?Acute ?Assessment and Plan: ?on sotalol and Xarelto (5) Coronary disease: ? ?
== END 2023-07-14 13:10 | disposition home or self-care (01) | DRG 309 ==
LOC: ANHED 07-13 01:30 → ANHIMU 07-13 03:16
PROVIDERS: Admitting Provider Internal Medicine; Emergency Provider Emergency Medicine; PCP Emergency Medicine; Visit Provider Family Medicine
DX: I48.92 Unspecified atrial flutter (principal); N39.0 Urinary tract infection, site not specified; B95.7 Other staphylococcus as the cause of diseases classified elsewhere; I48.0 Paroxysmal atrial fibrillation; I25.10 Atherosclerotic heart disease of native coronary artery without angina pectoris; I10 Essential (primary) hypertension; E11.9 Type 2 diabetes mellitus without complications; E03.9 Hypothyroidism, unspecified; F32.A Depression, unspecified; G89.29 Other chronic pain; M54.9 Dorsalgia, unspecified; Z79.82 Long term (current) use of aspirin; Z79.01 Long term (current) use of anticoagulants; Z87.891 Personal history of nicotine dependence; Z95.1 Presence of aortocoronary bypass graft
CPT/HCPCS: 36415; 71046; 80048; 80053; 81001; 83735; 83880; 84100; 84439; 84443; 84480; 84484; 85025; 85610; 85730; 87077; 87086; 87088; 93005; 96361; 96365; 96376; 99285; A9270; G0378; J0696; J3475; J7030

== ENCOUNTER 2024-01-25 12:43 | Outpatient (RCR) | payer MEDICARE, SELFPAY ==
[2024-01-25 12:58] VITALS: BMI 19.5
[2024-01-25 13:03] VITALS: BMI 19.5
[2024-01-25 13:23] VITALS: BMI 19.5
== END 2024-04-15 09:27 | disposition home or self-care (01) ==
LOC: ANHDMC 12:43
PROVIDERS: PCP Emergency Medicine; Visit Provider Emergency Medicine
DX: I25.10 Atherosclerotic heart disease of native coronary artery without angina pectoris (principal); I21.4 Non-ST elevation (NSTEMI) myocardial infarction; E11.9 Type 2 diabetes mellitus without complications; Z71.3 Dietary counseling and surveillance
CPT/HCPCS: 97802

== ENCOUNTER 2024-06-08 09:23 | Emergency (ER) | payer MEDICARE, SELFPAY ==
--- OUTSIDE RECORDS SUMMARY | 2024-06-08 09:25 | XMS_ITS | Referral Summary ---
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 Active ezetimibe (ZETIA) 10 mg tablet Take 1 tablet (10 mg total) by mouth every morning 4 Active aspirin 81 mg enteric coated tablet Take 1 tablet (81 mg total) by mouth daily 90 tablet 3 4 08/18/19 25 Active Xarelto 20 mg tablet Take 1 tablet (20 mg total) by mouth daily with dinner 90 tablet 3 4 Active sotaloL (BETAPACE) 80 mg tablet Take 0.5 tablets (40 mg total) by mouth 2 (two) times a day 180 tablet 3 4 Active Active Problems Problem Noted Date Diagnosed Date Primary hypertension 02/02/2024 Mixed hyperlipidemia 02/02/2024 Encounter for monitoring sotalol therapy 024 Hx of CABG 10/12/2023 Statin intolerance 10/12/2023 Paroxysmal atrial fibrillation 10/12/2023 Mild malnutrition 04/29/2023 Coronary artery disease invo lving [place] coronary artery of [place] heart without angina pectoris 04/27/2023 Social History Tobacco Use Types Packs/Day Years Used Date Smoking Tobacco: Former Cigarettes 1 60 S tarted: 02/21/1962 Smokeless Tobacco: Never [facility] Utilities Answer Date Recorded In the past 12 months has th e electric, gas, oil, or water company threatened to shut off services in your home? No 05/01/2023 Social Connection and Isolat ion Panel [NHANES] Answer Date Recorded In a typical week, how many times do you talk on the phone with family, friends, or neighbors? More than three times a week 05/01/2023 How often do you get togethe r with friends or relatives? More than three times a week 05/01/2023 How often do you attend chur ch or hindu services? Never 05/01/2023 Do you belong to any clubs o r organizations such as confucianism groups, unions, fraternal or athletic groups, or school groups? No 05/01/2023 How often do you attend meet ings of the clubs or organizations you belong to? Never 05/01/2023 Are you , , di vorced, , never , or living with a partner? 05/01/2023 Overall Financial Resource Strain (CARDIA) Answe r Date Recorded How hard is it for you to pa y for the very basics like food, housing, medical care, and heating? Not hard at all 05/01/2023 Hunger Vital Sign Answer Date Recorded Within the past 12 months, y ou worried that your food would run out before you got the money to buy more. Never true 05/01/19 24 Within the past 12 months, t he food you bought just didn't last and you didn't have money to get more. Never true 05/01/2023 PRAPARE - Transportation Answer Date Re corded In the past 12 months, has l ack of transportation kept you from medical appointments or from getting medications? No 04/13 In the past 12 months, has l ack of transportation kept you from meetings, work, or from getting things needed for daily living? No 05/01/2023 Housing Stability Vital Sign Answer Geo e Recorded In the last 12 months, was t here a time when you were not able to pay the mortgage or rent on time? No 05/01/2023 In the last 12 months, how many places have you lived? 1 05/01/2023 In the last 12 months, was t here a time when you did not have a steady place to sleep or slept in a custodial (including now)? No 05/01/2023 Personal Safety Answer Date Recorded Have you ever been in or are you currently in a harmful physical or emotional relationship or is someone making you feel afraid or unsafe? Denies 05/03/2023 Comments Unknown Sex and Gender Information Value Date Recorded Sex Assigned at Not on file Legal Sex Female 12:42 PM CDT Gender Identity Female 05/30/2023 12:43 PM CDT Sexual Orientation Straight 05/30/2023 12 :43 PM CDT Last Filed Vital Signs Vital Sign Reading Time Taken Comments Blood Pressure 124/70 02/02/2024 9:48 AM OPERATORS TEACHER Pulse 44 02/02/2024 9:48 AM OPERATORS TEACHER Temperature 37.2 C (98.9 F) 05/03/2023 4:17 PM CDT Respiratory Rate 16 09/07/2023 10:49 AM CDT Oxygen Saturation 93% 02/02/2024 9:48 AM OPERATORS TEACHER Inhaled Oxygen Concentration - - Weight 50.9 kg (112 lb 4.8 oz) 02/02/2024 9:48 A M OPERATORS TEACHER Height 152.4 cm (5') 02/02/2024 9:48 AM OPERATORS TEACHER Body Mass Index 21.93 02/02/2024 9:48 AM OPERATORS TEACHER Plan of Treatment Not on file Insurance [employer] MEDICARE [facility] MEDICARE Advance Directives For more information, please contact: [phone] * Full Code (Latest Code Status on File) Date Activated Date Inactivated Comments 04/27/2023 4:44 PM 05/03/2023 9:48 PM Care Teams Bulk Pallet Builder Relationship Specialty Start Date End Date Blair Galo MD [address] [place] [address] PCP - General Emergency Medicine 04/26/23 Ab Kline MD [id number] [place] [address] Surgeon Cardiothoracic Surgery 05/03/23 Rosa Maria Rachel NP [address] [place] [address] Nurse Practitioner Cardiovascular Disease 05/03/23
--- OUTSIDE RECORDS SUMMARY | 2024-06-08 09:25 | XMS_ITS | Encounter Summary ---
Author Organization [facility] Healthcare Address [address] [place] [address] Care Team Providers Care Lab Support Technician Name Role Phone Blair Galo MD Primary Care Provide r Ab Kline MD Unavailable [phone] Rosa Maria Rachel NP Unavailable Encounter Details Date Type Department Care Team (Late st Contact Info) Description 06/25/2023 Orders Only [facility] [address] [place] [address] Scanning, Provider Social History Tobacco Use Types Packs/Day Years Used Date Smoking Tobacco: Former Cigarettes S tarted: 04/26/2023 Smokeless Tobacco: Never [facility] Utilities Answer Date Recorded In the past 12 months has [employer] gas, oil, or water [employer] threatened to shut off services in your [...] week 05/01/2023 How often do you attend [facility] or nondenominational services? Never 05/01/2023 Do you belong to any clubs o r organizations such as confucianist groups, unions, fraternal or athletic groups, or [...] place to sleep or slept in a assisted (including now)? No 05/01/2023 Personal Safety Answer [...] Orientation Straight 05/30/2023 12 :43 PM CDT documented as of this encounter Plan of Treatment Not on file documented as of this encounter Procedures Procedure Name Priority Date/Time Associated Diagnosis Comments SCAN - LABS 06/25/2023 documented in this encounter Results * SCAN - LABS (06/25/2023) us Provider Scanning Final Result documented in this encounter Visit Diagnoses Not on filedocumented in this encounter Care Teams Lab Support Technician Relationship Specialty Start Date End Date Blair Galo MD [address] [place] [address] PCP - General Emergency Medicine 04/26/23 Ab Kline MD [id number] [place] [address] Surgeon Cardiothoracic Surgery 05/03/23 Rosa Maria Rachel NP [address] [facility] [address] [place] [address] Nurse Practitioner Cardiovascular Disease 05/03/23 documented as of this encounter
--- OUTSIDE RECORDS SUMMARY | 2024-06-08 09:25 | XMS_ITS | Clinical Summary ---
Author Organization [facility] al Address [address] [place] [address] Care Team Providers Care Commercial Account Manager Name Role Phone Blair Galo MD Primary Care Provide r Ab Kline MD Unavailable [phone] Rosa Maria Rachel NP Unavailable Allergies Active Allergy Reactions Criticality Noted Date Comments Rqtnvzp-Fiw-Wmt Reductase Inhibitors Nausea & Vomiting,Fatigue Low 04/27/2023 Medications levothyroxine (SYNTHROID) 100 mcg tablet Take 1 tablet (100 mcg total) by mouth digital analytics manager before breakfast Active ezetimibe (ZETIA) 10 mg [...] malnutrition 04/29/2023 Coronary artery disease invo lving [place] coronary artery of [place] heart without angina pectoris 04/27/2023 Surgical History Surgery Date Site/Laterality Comments APPENDECTOMY 1956 CATARACT EXTRACTION 2013 CORONARY ARTERY BYPASS GRAFT 2023 TUBAL LIGATION 1976 Medical History Medical History Date Comments Anxiety 1997 Arthritis 2019 Cataract 2013 Diabetes mellitus (HCC) 1997 Heart disease 2023 Thyroid disease 1988 Family History Medical History Relation Name Comments Depression Father 1998 Heart attack Father 1998 Stroke Mother 2004 Relation Name Status Comments Father 1998 Mother 2004 Social History Tobacco Use Types Packs/Day Years Used Date Smoking Tobacco: Former Cigarettes 1 60 S tarted: 02/21/1962 Smokeless Tobacco: Never [facility] Utilities Answer Date Recorded In the past 12 months has [employer], gas, oil, or water [employer] threatened to shut off services in your [...] often do you attend chur ch or temple services? Never 05/01/2023 Do you belong to any clubs o r organizations such as mormon groups, unions, fraternal or athletic groups, or [...] place to sleep or slept in a fdc (including now)? No 05/01/2023 Personal Safety Answer [...] Orientation Straight 05/30/2023 12 :43 PM CDT Obstetrics History Last Filed Vital Signs Vital Sign Reading Time Taken Comments Blood Pressure 124/70 02/02/2024 9:48 AM SYSTEMS TEST ENGINEER Pulse 44 02/02/2024 9:48 AM SYSTEMS TEST ENGINEER Temperature 37.2 C (98.9 F) 05/03/2023 4:17 PM CDT Respiratory Rate 16 09/07/2023 10:49 AM CDT Oxygen Saturation 93% 02/02/2024 9:48 AM SYSTEMS TEST ENGINEER Inhaled Oxygen Concentration - - Weight 50.9 kg (112 lb 4.8 oz) 02/02/2024 9:48 A M SYSTEMS TEST ENGINEER Height 152.4 cm (5') 02/02/2024 9:48 AM SYSTEMS TEST ENGINEER Body Mass Index 21.93 02/02/2024 9:48 AM SYSTEMS TEST ENGINEER Plan of Treatment Health Maintenance Due Date Last Done Comments Depression Screening 1947 Hepatitis C Screening 1947 Osteoporosis Screening-Bone Density Scan 1947 DTaP/Tdap/Td Vaccine (1 - Tdap) 09/19/1958 Hepatitis B Screening 09/19/1965 Pneumococcal vaccine 65+ (1 of 1 - PCV) 09/19/1997 Zoster Vaccine (1 of 2) 09/19/1997 Well Visit 65+ 09/19/2012 Influenza Vaccine (#1) 2023 Fall Risk Assessment 05/02/2024 05/03/2023 Insurance [facility] MEDICARE [facility] MEDIC[facility] Advance Directives For more information, please contact: [phone] * Full Code (Latest Code Status on File) Date Activated Date Inactivated Comments 04/27/2023 4:44 PM 05/03/2023 9:48 PM Care Teams Commercial Account Manager Relationship Specialty Start Date End Date Blair Galo MD [address] [place] [address] PCP - General Emergency Medicine 04/26/23 Ab Kline MD [id number] [place] [address] Surgeon Cardiothoracic Surgery 05/03/23 Rosa Maria Rachel NP [address] [facility] [address] [address] Nurse Practitioner Cardiovascular Disease 05/03/23
[2024-06-08 09:27] VITALS: PULSE 56; RESP 16; O2SAT 100
[2024-06-08 09:36] VITALS: BP 157/73; PULSE 55; RESP 16; TEMP 36.4; O2SAT 97
--- NOTE | 2024-06-08 09:55 | ED.GENADULT ---
HPI - General Adult General Chief complaint: Extremity Injury, Upper Stated complaint: FALL, R ELBOW INJURY Time Seen by Provider: 06/08/24 09:39 History of Present Illness HPI narrative: 78-year-old female presents to the emergency department for evaluation for a skin tear to her right elbow that occurred yesterday. Patient states that she tripped over a dog gate and reach for to catch herself and scraped her right elbow the wall. Patient states she does take Xarelto but denies striking head denies loss consciousness. Patient has no headache. Patient's primary concern was a skin tear to the right elbow. Patient denies any pain of the right elbow joint and has full range of motion. Patient denies any other pain or injury. Related Data Home Medications ?Medication ?Instructions ?Recorded ?Confirmed ?Last Taken ?Type aspirin 81 mg tablet,delayed 81 mg PO .EVERY AFTERNOON 06/21/23 01/02/24 06/23/23 12:00 History release Allergies Allergy/AdvReac Type Severity Reaction Status Date / Time Wjjiajx-QOD-CpW Reductase Allergy Unknown unknown Verified 06/08/24 09:24 Inhibitor (Etsgqbh-Dun-Lsr Reductase Inhibitor) Review of Systems Review of Systems: All systems reviewed & are unremarkable except as noted in HPI and below PMFSH Past Medical History Medical History (Updated 06/08/24 @ 10:00 by Costa Thompson MD) Type 2 diabetes mellitus HTN (hypertension), benign Coronary disease Adult hypothyroidism Bilateral leg cramps Chronic back pain Elevated blood pressure reading without diagnosis of hypertension Fatigue Hyperglycemia Other and unspecified hyperlipidemia DM w/o complication type II Vitamin D deficiency Screening cholesterol level Other screening mammogram Depression Surgical History Surgical History 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 No alcohol or drug use. Lives at home with . They have a dog. 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 Smoking packs per day: 1 Smoking cigarettes per day: 20.0 Years smoked: 60 Smoking pack-years: 60.00 Smoking status: Former smoker Tobacco type: cigarettes Second hand tobacco smoke exposure: No Smoking end date: 04/26/23 Alcohol intake: current Drinks per week: 2 Substance use: never Substance use type: does not use Do You Feel Safe in your Home?: Yes Lack of Transportation: No Lack of Food: Never True Current Housing: I Have Housing Concerned About Future Housing: No Difficulty Paying Gas/Electric Bills: No Difficulty Paying for Meds: No Currently Unemployed: No Education: Bachelor's Degree Difficulty w/ Childcare or Family Care: No Spiritual care concerns: No Exam Narrative: APPEARANCE: Well appearing, no pain, no distress, well-nourished. HEAD: normocephalic, atraumatic. EYES: PERRLA/EOMI, conjunctivae clear. NOSE: Normal no drainage EARS:TMS clear with good light reflex. THROAT: Pharynx clear, no exudate. NECK: Supple. No adenopathy, no masses. RESPIRATORY: Airway patent, respirations nonlabored. Clear to auscultation bilaterally, no rales, rhonchi, wheezing. CARDIOVASCULAR: Regular rate and rhythm without murmurs rubs or gallops. ABDOMINAL: Soft, nontender, nondistended, normal bowel sounds MUSCULOSKELETAL: Moves all extremities. Strength/ROM intact, No edema, No calf tenderness. NEURO: Alert. Cranial nerves II through XII intact. Good gait. Good coordination SKIN: 3 cm skin tear to right elbow Course Vital Signs Vital signs: Vital Signs Pulse Rate 56 L 06/08/24 09:27 Respiratory Rate 16 06/08/24 09:27 Pulse Oximetry 100 06/08/24 09:27 Oxygen Delivery Room Air 06/08/24 09:27 Temperature 97.4 F L 06/08/24 10:06 Pulse Rate 59 L 06/08/24 10:06 Respiratory Rate 16 06/08/24 10:06 Blood Pressure 149/70 H 06/08/24 10:06 Pulse Oximetry 98 06/08/24 10:06 Oxygen Delivery Room Air 06/08/24 09:27 Procedures Laceration Laceration 1: Time: 09:57 Site: upper extremity Side (If applicable): right Size (cm): 3 Description: flap (Flap skin tear) Depth: simple, single layer Pre-repair: irrigated ====== Skin Level ====== Skin layer closed with: steri strips Size (cm): 3-0 ====== Subcutaneous Layer ====== ====== Muscle Layer ====== ====== Tendon Layer ====== Medical Decision Making MDM Narrative Medical decision making narrative: 78-year-old female presenting to the emergency department for evaluation for skin tear. Skin tear was repaired as described in the procedure note. The patient will have close follow-up with her primary care physician. All questions concerns were addressed. Vital Signs Vital Signs: Vital Signs Pulse Rate 56 L 06/08/24 09:27 Respiratory Rate 16 06/08/24 09:27 Pulse Oximetry 100 06/08/24 09:27 Oxygen Delivery Room Air 06/08/24 09:27 Temperature 97.4 F L 06/08/24 10:06 Pulse Rate 59 L 06/08/24 10:06 Respiratory Rate 16 06/08/24 10:06 Blood Pressure 149/70 H 06/08/24 10:06 Pulse Oximetry 98 06/08/24 10:06 Oxygen Delivery Room Air 06/08/24 09:27 Discharge Plan Discharge Clinical Impression: Skin tear Patient Disposition: Home Condition: Stable Instructions: Antibiotic Form, Skin Tear (ED), Skin Adhesive Strips (ED) Additional Instructions: Wound care as directed. Have close follow-up with your primary care physician. Patient Language: Romansh Prescriptions: No Action Xarelto 20 mg tablet 20 mg PO DAILY@1700 Qty: 30 3RF aspirin 81 mg tablet,delayed release (DR/EC) 81 mg PO .EVERY AFTERNOON sotalol 80 mg tablet 40 mg PO BID Qty: 30 1RF levothyroxine 100 mcg tablet See Rx Instructions .ROUTE .COMPLEX Qty: 90 3RF Dose Instruction: TAKE 1 TABLET BY MOUTH DAILY Rx Instructions: TAKE 1 TABLET BY MOUTH DAILY ezetimibe [Zetia] 10 mg tablet 10 mg PO QAM Qty: 90 2RF Follow-up/Referrals: Blair Galo MD [Primary Care Provider] -
--- OUTSIDE RECORDS SUMMARY | 2024-06-08 09:56 | XMS_ITS | Clinical Summary ---
Author Organization [facility] al Address [address] [place] [address] Care Team Providers Care Ink Grinder Name Role Phone Blair Galo MD Primary Care Provide r Ab Kline MD Unavailable [phone] Rosa Maria Rachel NP Unavailable [phone] Allergies Active Allergy Reactions Criticality Noted Date Comments Hytyblq-Jel-Hrd Reductase Inhibitors Nausea & Vomiting,Fatigue Low 04/27/2023 Medications levothyroxine (SYNTHROID) 100 mcg tablet Take 1 tablet (100 mcg total) by mouth cae engineer before breakfast Active ezetimibe (ZETIA) 10 mg [...] malnutrition 04/29/2023 Coronary artery disease invo lving [place] coronary artery of [place] heart without angina pectoris 04/27/2023 Surgical History [...] 60 S tarted: 02/21/1962 Smokeless Tobacco: Never [facility] Utilities Answer Date Recorded In the past 12 months has [employer], gas, oil, or water [employer] threatened to shut off services in your [...] often do you attend chur ch or baptist services? Never 05/01/2023 Do you belong to any clubs o r organizations such as anabaptism groups, unions, fraternal or athletic groups, or [...] place to sleep or slept in a longterm (including now)? No 05/01/2023 Personal Safety Answer [...] Comments Blood Pressure 124/70 02/02/2024 9:48 AM LVN Pulse 44 02/02/2024 9:48 AM LVN Temperature 37.2 C (98.9 F) 05/03/2023 4:17 PM CDT Respiratory Rate 16 09/07/2023 10:49 AM CDT Oxygen Saturation 93% 02/02/2024 9:48 AM LVN Inhaled Oxygen Concentration - - Weight 50.9 kg (112 lb 4.8 oz) 02/02/2024 9:48 A M LVN Height 152.4 cm (5') 02/02/2024 9:48 AM LVN Body Mass Index 21.93 02/02/2024 9:48 AM LVN Plan of Treatment Health Maintenance Due Date Last Done Comments Depression Screening 1945 Hepatitis C Screening 1947 Osteoporosis Screening-Bone Density Scan 1947 DTaP/Tdap/Td Vaccine (1 - Tdap) 09/19/1958 Hepatitis B Screening 09/19/1965 Pneumococcal vaccine 65+ (1 of 1 - PCV) 09/19/1997 Zoster Vaccine (1 of 2) 09/19/1997 Well Visit 65+ 09/19/2012 Influenza Vaccine (#1) 2023 Fall Risk Assessment 05/02/2024 05/03/2023 Insurance [facility] Advance Directives For more information, please contact: [phone] * Full Code (Latest Code Status on File) Date Activated Date Inactivated Comments 04/27/2023 4:44 PM 05/03/2023 9:48 PM Care Teams Ink Grinder Relationship Specialty Start Date End Date Blair Galo MD [address] [place] [address] PCP - General Emergency Medicine 04/26/23 Ab Kline MD [address] [place] [address] Surgeon Cardiothoracic Surgery 05/03/23 Rosa Maria Rachel NP [address] [facility] [address] [address] Nurse Practitioner Cardiovascular Disease 05/03/23
--- OUTSIDE RECORDS SUMMARY | 2024-06-08 09:56 | XMS_ITS | Encounter Summary ---
Author Organization [facility] Healthcare Address [address] [place] [address] Care Team Providers Care Refining Engineer Name Role Phone Blair Galo MD Primary Care Provide r Ab Kline MD Unavailable [phone] Rosa Maria Rachel NP Unavailable [phone] Encounter Details Date Type Department Care Team (Late st Contact Info) Description 06/25/2023 Orders Only [facility] Health Information Management [address] [place] [address] Scanning, Provider Social History Tobacco Use Types Packs/Day Years Used Date Smoking Tobacco: Former Cigarettes S tarted: 04/26/2023 Smokeless Tobacco: Never [facility] Utilities Answer Date Recorded In the past 12 months has [employer], gas, oil, or water [employer] threatened to shut off services in your [...] week 05/01/2023 How often do you attend [facility] or yarsanism services? Never 05/01/2023 Do you belong to any clubs o r organizations such as jehovah's witness groups, unions, fraternal or athletic groups, or [...] place to sleep or slept in a group home (including now)? No 05/01/2023 Personal Safety Answer [...] on filedocumented in this encounter Care Teams Refining Engineer Relationship Specialty Start Date End Date Blair Galo MD [address] [place] [address] PCP - General Emergency Medicine 04/26/23 Ab Kline MD [address] [place] [address] Surgeon Cardiothoracic Surgery 05/03/23 Rosa Maria Rachel NP [address] [facility] [address] [place] [address] Nurse Practitioner Cardiovascular Disease 05/03/23 documented as of this encounter
--- OUTSIDE RECORDS SUMMARY | 2024-06-08 09:56 | XMS_ITS | Referral Summary ---
Author Organization [facility] al Address [address] [place] [address] Care Team Providers Care Communications Supervisor Name Role Phone Blair Galo MD Primary Care Provide r Ab Kline MD Unavailable [phone] Rosa Maria Rachel NP Unavailable Allergies Active Allergy Reactions Criticality Noted Date Comments Iekpvtq-Gva-Pbd Reductase Inhibitors Nausea & Vomiting,Fatigue Low 04/27/2023 Medications levothyroxine (SYNTHROID) 100 mcg tablet Take 1 tablet (100 mcg total) by mouth associate publisher before breakfast Active ezetimibe (ZETIA) 10 mg [...] malnutrition 04/29/2023 Coronary artery disease invo lving [place] coronary artery of [place] heart without angina pectoris 04/27/2023 Social History Tobacco Use Types Packs/Day Years Used Date Smoking Tobacco: Former Cigarettes 1 60 S tarted: 02/21/1962 Smokeless Tobacco: Never [facility] Utilities Answer Date Recorded In the [...] often do you attend chur ch or oriental orthodox services? Never 05/01/2023 Do you belong to any clubs o r organizations such as religious groups, unions, fraternal or athletic groups, or [...] place to sleep or slept in a [facility] (including now)? No 05/01/2023 Personal Safety Answer [...] Comments Blood Pressure 124/70 02/02/2024 9:48 AM SERVICE STATION MANAGER Pulse 44 02/02/2024 9:48 AM SERVICE STATION MANAGER Temperature 37.2 C (98.9 F) 05/03/2023 4:17 PM CDT Respiratory Rate 16 09/07/2023 10:49 AM CDT Oxygen Saturation 93% 02/02/2024 9:48 AM SERVICE STATION MANAGER Inhaled Oxygen Concentration - - Weight 50.9 kg (112 lb 4.8 oz) 02/02/2024 9:48 A M SERVICE STATION MANAGER Height 152.4 cm (5') 02/02/2024 9:48 AM SERVICE STATION MANAGER Body Mass Index 21.93 02/02/2024 9:48 AM SERVICE STATION MANAGER Plan of Treatment Not on file Insurance [employer] MEDICARE [facility] Advance Directives For more information, please contact: [phone] * Full Code (Latest Code Status on File) Date Activated Date Inactivated Comments 04/27/2023 4:44 PM 05/03/2023 9:48 PM Care Teams Communications Supervisor Relationship Specialty Start Date End Date Blair Galo MD [address] [place] [address] PCP - General Emergency Medicine 04/26/23 Ab Kline MD [address] [place] [address] Surgeon Cardiothoracic Surgery 05/03/23 Rosa Maria Rachel NP [address] [place] [address] Nurse Practitioner Cardiovascular Disease 05/03/23
[2024-06-08 10:06] VITALS: BP 149/70; PULSE 59; RESP 16; TEMP 36.3; O2SAT 98
== END 2024-06-08 10:07 | disposition home or self-care (01) ==
PROVIDERS: Emergency Provider Emergency Medicine; PCP Emergency Medicine
DX: S51.011A Laceration without foreign body of right elbow, initial encounter (principal); I10 Essential (primary) hypertension; I25.10 Atherosclerotic heart disease of native coronary artery without angina pectoris; E11.9 Type 2 diabetes mellitus without complications; E03.9 Hypothyroidism, unspecified; E78.5 Hyperlipidemia, unspecified; E55.9 Vitamin D deficiency, unspecified; F32.A Depression, unspecified; Z95.1 Presence of aortocoronary bypass graft; Z87.891 Personal history of nicotine dependence; W22.01XA Walked into wall, initial encounter; W22.8XXA Striking against or struck by other objects, initial encounter; Z79.01 Long term (current) use of anticoagulants; Z79.82 Long term (current) use of aspirin; Z79.899 Other long term (current) drug therapy
CPT/HCPCS: 99282

== ENCOUNTER 2024-09-07 06:21 | Emergency (ER) | payer MEDICARE, SELFPAY ==
--- OUTSIDE RECORDS SUMMARY | 2024-09-07 06:23 | XMS_ITS | Referral Summary ---
Author Organization [facility] al Address [address] [place] [address] Care Team Providers Care Autism Specialist Name Role Phone Blair Galo MD Primary Care Provide r Ab Kline MD Unavailable [phone] Rosa Maria Rachel NP Unavailable [phone] Encounters Date Type Department Care Team Description 08/13/2024 Telephone [facility] Medical Group Cardiology [address] [place] [address] Rosa Maria Rachel NP from Last 3 Months Allergies Active Allergy Reactions Criticality Noted Date Comments Igpgdst-Hsm-Qqy Reductase Inhibitors Nausea & Vomiting,Fatigue Low 04/27/2023 Medications levothyroxine (SYNTHROID) 100 mcg tablet Take 1 tablet (100 mcg total) by mouth metal control worker before breakfast Active ezetimibe (ZETIA) 10 mg tablet Take 1 tablet (10 mg total) by mouth every morning 4 Active aspirin 81 mg enteric coated tablet Take 1 tablet (81 mg total) by mouth daily 90 tablet 3 4 Active sotaloL (BETAPACE) 80 mg tablet Take 0.5 tablets (40 mg total) by mouth 2 (two) times a day 180 tablet 3 4 Active Xarelto 20 mg tablet Take 1 tablet (20 mg total) by mouth daily with dinner 90 tablet 1 5 Active Xarelto 20 mg tablet Take 1 tablet (20 mg total) by mouth daily with dinner 90 tablet 3 4 08/14/19 25 Discontinu ed(Reorder ) Active Problems Problem Noted Date Diagnosed Date Primary hypertension 02/02/2024 Mixed hyperlipidemia 02/02/2024 Encounter for monitoring sotalol therapy 024 Hx of CABG 10/12/2023 Statin intolerance 10/12/2023 Paroxysmal atrial fibrillation 10/12/2023 Mild malnutrition 04/29/2023 Coronary artery disease invo lving [place] coronary artery of [place] heart without angina pectoris 04/27/2023 Social History Tobacco Use Types Packs/Day Years Used Date Smoking Tobacco: Former Cigarettes 1 60 S tarted: 02/21/1962 Smokeless Tobacco: Never [employer] Answer Date Recorded In the past 12 months has [employer], [employer], or water [employer] threatened to shut off services in your [...] often do you attend chur ch or buddhist services? Never 05/01/2023 Do you belong to any clubs o r organizations such as orthodoxy groups, unions, fraternal or athletic groups, or [...] Comments Blood Pressure 124/70 02/02/2024 9:48 AM TIN FLIPPER Pulse 44 02/02/2024 9:48 AM TIN FLIPPER Temperature 37.2 C (98.9 F) 05/03/2023 4:17 PM CDT Respiratory Rate 16 09/07/2023 10:49 AM CDT Oxygen Saturation 93% 02/02/2024 9:48 AM TIN FLIPPER Inhaled Oxygen Concentration - - Weight 50.9 kg (112 lb 4.8 oz) 02/02/2024 9:48 A M TIN FLIPPER Height 152.4 cm (5') 02/02/2024 9:48 AM TIN FLIPPER Body Mass Index 21.93 02/02/2024 9:48 AM TIN FLIPPER Plan of Treatment Not on file Insurance [facility] Advance Directives For more information, please contact: [phone] * Full Code (Latest Code Status on File) Date Activated Date Inactivated Comments 04/27/2023 4:44 PM 05/03/2023 9:48 PM Care Teams Autism Specialist Relationship Specialty Start Date End Date Blair Galo MD [address] [place] [address] PCP - General Emergency Medicine 04/26/23 Ab Kline MD [address] [place] [address] Surgeon Cardiothoracic Surgery 05/03/23 Rosa Maria Rachel NP [address] [facility] [address] [facility] [address] [place] [address] Nurse Practitioner Cardiovascular Disease 05/03/23
--- OUTSIDE RECORDS SUMMARY | 2024-09-07 06:23 | XMS_ITS | Clinical Summary ---
Author Organization [facility] al Address [address] [place] [address] Care Team Providers Care Knitting Machine Operator Helper Name Role Phone Blair Galo MD Primary Care Provide r Ab Kilne MD Unavailable [phone] Rosa Maria Rachel NP Unavailable Allergies Active Allergy Reactions Criticality Noted Date Comments Xqxmzch-Elw-Usd Reductase Inhibitors Nausea & Vomiting,Fatigue Low 04/27/2023 Medications levothyroxine (SYNTHROID) 100 mcg tablet Take 1 tablet (100 mcg total) by mouth certified home health aide before breakfast Active ezetimibe (ZETIA) 10 mg [...] malnutrition 04/29/2023 Coronary artery disease invo lving [place] coronary artery of [place] heart without angina pectoris 04/27/2023 Encounters Date Type Department Care Team Description 08/13/2024 Telephone [facility] Cardiology [address] [facility] [address] [place] [address] Rosa Maria Rachel NP from Last 3 Months Surgical History Surgery Date Site/Laterality Comments APPENDECTOMY 1956 CATARACT EXTRACTION 2013 CORONARY ARTERY BYPASS GRAFT 2023 TUBAL LIGATION 1976 Medical History Medical History Date Comments Anxiety 1997 Arthritis 2018 Cataract 2013 Diabetes mellitus (HCC) 1997 Heart disease 2023 Thyroid disease 1988 Family History Medical History Relation Name Comments Depression Father 1998 Heart attack Father 1998 Stroke Mother 2004 Relation Name Status Comments Father 1998 Mother 2004 Social History Tobacco Use Types Packs/Day Years Used Date Smoking Tobacco: Former Cigarettes 1 60 S tarted: 02/21/1962 Smokeless Tobacco: Never [facility] [employer] Answer Date Recorded In the past 12 months has e electric, gas, oil, or water company [...] often do you attend chur ch or bahai services? Never 05/01/2023 Do you belong to any clubs o r organizations such as moravian groups, unions, fraternal or athletic groups, or [...] place to sleep or slept in a senior living (including now)? No 05/01/2023 Personal Safety Answer [...] Comments Blood Pressure 124/70 02/02/2024 9:48 AM FOUNDATION DRILL OPERATOR Pulse 44 02/02/2024 9:48 AM FOUNDATION DRILL OPERATOR Temperature 37.2 C (98.9 F) 05/03/2023 4:17 PM CDT Respiratory Rate 16 09/07/2023 10:49 AM CDT Oxygen Saturation 93% 02/02/2024 9:48 AM FOUNDATION DRILL OPERATOR Inhaled Oxygen Concentration - - Weight 50.9 kg (112 lb 4.8 oz) 02/02/2024 9:48 A M FOUNDATION DRILL OPERATOR Height 152.4 cm (5') 02/02/2024 9:48 AM FOUNDATION DRILL OPERATOR Body Mass Index 21.93 02/02/2024 9:48 AM FOUNDATION DRILL OPERATOR Plan of Treatment Health Maintenance Due Date Last Done Comments Depression Screening 1945 Hepatitis C Screening 1945 Osteoporosis Screening-Bone Density Scan 1945 DTaP/Tdap/Td Vaccine (1 - Tdap) 09/19/1958 Hepatitis B Screening 09/19/1965 Pneumococcal vaccine 65+ (1 of 1 - PCV) 09/19/1997 Zoster Vaccine (1 of 2) 09/19/1997 Well Visit 65+ 09/19/2012 Fall Risk Assessment 05/02/2024 05/03/2023 Influenza Vaccine (#1) 2024 Insurance [facility] MED[facility] Advance Directives For more information, please contact: [phone] * Full Code (Latest Code Status on File) Date Activated Date Inactivated Comments 04/27/2023 4:44 PM 05/03/2023 9:48 PM Care Teams Knitting Machine Operator Helper Relationship Specialty Start Date End Date Blair Galo MD [address] [place] [address] PCP - General Emergency Medicine 04/26/23 Ab Kline MD [address] [place] [address] Surgeon Cardiothoracic Surgery 05/03/23 Rosa Maria Rachel NP [address] [facility] [address] [place] [address] Nurse Practitioner Cardiovascular Disease 05/03/23
[2024-09-07 06:28] VITALS: BP 195/82; PULSE 60; RESP 18; TEMP 36.4; O2SAT 100
[2024-09-07 06:31] VITALS: BP 168/77; PULSE 60; RESP 16; TEMP 36.6; O2SAT 99
--- NOTE | 2024-09-07 07:24 | ED_ITS ---
HPI - General Adult General Chief complaint: Wound/Laceration Stated complaint: skin tear Time Seen by Provider: 09/07/24 06:54 History of Present Illness HPI narrative: 78-year-old female presented to the emergency department for evaluation for using skin tear to dorsum of her left hand. Patient does take Xarelto. Patient struck her left hand and the drawer of the refrigerator and received a small skin tear. Patient reports that the bleeding did continue throughout the evening. Patient denies concern for fracture of the hand but wanted the skin tear evaluated. Upon arrival to the emergency department patient does have a pressure dressing with Coban on it and there is no active bleeding. Related Data Home Medications ?Medication ?Instructions ?Recorded ?Confirmed ?Last Taken ?Type aspirin 81 mg tablet,delayed 81 mg PO .EVERY AFTERNOON 06/21/23 07/02/24 06/23/23 12:00 History release Allergies Allergy/AdvReac Type Severity Reaction Status Date / Time Ucrupyv-VOW-DvA Reductase Allergy Unknown unknown Verified 09/07/24 06:34 Inhibitor (Afcajgj-Yoz-Xjp Reductase Inhibitor) Review of Systems Review of Systems: All systems reviewed & are unremarkable except as noted in HPI and below [facility] Past Medical History Medical History (Updated 09/07/24 @ 08:08 by Costa Thompson MD) Sinus congestion Acute UTI HTN (hypertension), benign Coronary disease Adult hypothyroidism Bilateral leg cramps Chronic back pain Elevated blood pressure reading without diagnosis of hypertension Fatigue Hyperglycemia Other and unspecified hyperlipidemia DM w/o complication type II Vitamin D deficiency Screening cholesterol level Other screening mammogram Depression Surgical History Surgical History 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 No alcohol or drug use. Lives at home with . They have a dog. 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 Smoking packs per day: 1 Smoking cigarettes per day: 20.0 Years smoked: 60 Smoking pack-years: 60.00 Smoking status: Former smoker Tobacco type: cigarettes Second hand tobacco smoke exposure: No Smoking end date: 04/26/23 Alcohol intake: former Substance use: never Substance use type: does not use Do You Feel Safe in your Home?: Yes Lack of Transportation: No Lack of Food: Never True Current Housing: I Have Housing Concerned About Future Housing: No Difficulty Paying Gas/Electric Bills: No Difficulty Paying for Meds: No Currently Unemployed: No Education: Bachelor's Degree Difficulty w/ Childcare or Family Care: No Spiritual care concerns: No Course Vital Signs Vital signs: Vital Signs Temperature 97.5 F L 09/07/24 06:28 Pulse Rate 60 09/07/24 06:28 Respiratory Rate 18 09/07/24 06:28 Blood Pressure 195/82 H 09/07/24 06:28 Pulse Oximetry 100 09/07/24 06:28 Temperature 97.8 F 09/07/24 07:30 Pulse Rate 78 09/07/24 07:30 Respiratory Rate 16 09/07/24 07:30 Blood Pressure 152/80 H 09/07/24 07:30 Pulse Oximetry 100 09/07/24 07:30 Oxygen Delivery Room Air 09/07/24 06:31 Procedures Laceration Laceration 1: Time: 08:07 Site: upper extremity Side (If applicable): left Size (cm): 2 Description: linear Depth: simple, single layer ====== Skin Level ====== Skin layer closed with: steri strips ====== Subcutaneous Layer ====== ====== Muscle Layer ====== ====== Tendon Layer ====== Medical Decision Making MDM Narrative Medical decision making narrative: 78-year-old female presenting to the emergency department for evaluation for a skin tear to the left hand. Patient does take Xarelto and hand was continuing to ooze. Steri-Strips were placed on the wound and a pressure dressing was placed over the Steri-Strips. No active bleeding at time placing the Steri- Strips. Differential Diagnosis Differential Diagnosis: Skin tear, laceration, and fracture Vital Signs Vital Signs: Vital Signs Temperature 97.5 F L 09/07/24 06:28 Pulse Rate 60 09/07/24 06:28 Respiratory Rate 18 09/07/24 06:28 Blood Pressure 195/82 H 09/07/24 06:28 Pulse Oximetry 100 09/07/24 06:28 Temperature 97.8 F 09/07/24 07:30 Pulse Rate 78 09/07/24 07:30 Respiratory Rate 16 09/07/24 07:30 Blood Pressure 152/80 H 09/07/24 07:30 Pulse Oximetry 100 09/07/24 07:30 Oxygen Delivery Room Air 09/07/24 06:31 Discharge Plan Discharge Clinical Impression: Skin tear Patient Disposition: Home Condition: Stable Instructions: Antibiotic Form, Laceration (ED), Skin Adhesive Strips (ED) Additional Instructions: Wound care as directed. Have close follow-up with your primary care physician. Patient Language: Emirati Prescriptions: No Action Xarelto 20 mg tablet 20 mg PO DAILY@1700 Qty: 30 3RF aspirin 81 mg tablet,delayed release (DR/EC) 81 mg PO .EVERY AFTERNOON sotalol 80 mg tablet 40 mg PO BID Qty: 30 1RF ezetimibe [Zetia] 10 mg tablet 10 mg PO QAM Qty: 90 2RF levothyroxine [Synthroid] 75 mcg tablet 75 mcg PO DAILY Qty: 90 2RF Follow-up/Referrals: Blair Galo MD [Primary Care Provider] -
[2024-09-07 07:30] VITALS: BP 152/80; PULSE 78; RESP 16; TEMP 36.6; O2SAT 100
--- OUTSIDE RECORDS SUMMARY | 2024-09-07 07:33 | XMS_ITS | Clinical Summary ---
Author Organization [facility] al Address [address] [place] [address] Care Team Providers Care Stringing Machine Operator Name Role Phone Blair Galo MD Primary Care Provide r Ab Kline MD Unavailable [phone] Rosa Maria Rachel NP Unavailable [phone] Allergies Active Allergy Reactions Criticality Noted Date Comments Yujfbce-Grw-Kro Reductase Inhibitors Nausea & Vomiting,Fatigue Low 04/27/2023 Medications levothyroxine (SYNTHROID) 100 mcg tablet Take 1 tablet (100 mcg total) by mouth commercial loan processor before breakfast Active ezetimibe (ZETIA) 10 mg [...] malnutrition 04/29/2023 Coronary artery disease invo lving [place] coronary artery of [place] heart without angina pectoris 04/27/2023 Encounters Date Type Department Care Team Description 08/13/2024 Telephone [facility] Medical Group Cardiology [address] [facility] [address] [place] [address] Rosa Maria Rachel NP from [...] 60 S tarted: 02/21/1960 Smokeless Tobacco: Never [facility] Innolightities Answer Date Recorded In the past 12 [...] any clubs o r organizations such as holiness groups, unions, fraternal or athletic groups, or [...] to sleep or slept in a senior care (including now)? No 05/01/2023 Personal Safety Answer [...] Blood Pressure 124/70 02/02/2024 9:48 AM SERVICE UNIT OPERATOR Pulse 44 02/02/2024 9:48 AM SERVICE UNIT OPERATOR Temperature 37.2 C (98.9 F) 05/03/2023 4:17 PM CDT Respiratory Rate 16 09/07/2023 10:49 AM CDT Oxygen Saturation 93% 02/02/2024 9:48 AM SERVICE UNIT OPERATOR Inhaled Oxygen Concentration - - Weight 50.9 kg (112 lb 4.8 oz) 02/02/2024 9:48 A M SERVICE UNIT OPERATOR Height 152.4 cm (5') 02/02/2024 9:48 AM SERVICE UNIT OPERATOR Body Mass Index 21.93 02/02/2024 9:48 AM SERVICE UNIT OPERATOR Plan of Treatment Health Maintenance Due Date Last Done Comments Depression Screening 1945 Hepatitis C Screening 1945 Osteoporosis Screening-Bone Density Scan 1945 DTaP/Tdap/Td Vaccine (1 - Tdap) 09/19/1958 Hepatitis B Screening 09/19/1965 Pneumococcal vaccine 65+ (1 of 1 - PCV) 09/19/1997 Zoster Vaccine (1 of 2) 09/19/1997 Well Visit 65+ 09/19/2012 Fall Risk Assessment 05/02/2024 05/03/2023 Influenza Vaccine (#1) 2024 Insurance [facility] MEDICARE [facility] MEDICARE Advance Directives For more information, please contact: [phone] * Full Code (Latest Code Status on File) Date Activated Date Inactivated Comments 04/27/2023 4:44 PM 05/03/2023 9:48 PM Care Teams Stringing Machine Operator Relationship Specialty Start Date End Date Blair Galo MD [address] [place] [address] PCP - General Emergency Medicine 04/26/23 Ab Kline MD [address] [place] [address] Surgeon Cardiothoracic Surgery 05/03/23 Rosa Maria Rachel NP [address] [facility] [address] [place] [address] Nurse Practitioner Cardiovascular Disease 05/03/23
--- OUTSIDE RECORDS SUMMARY | 2024-09-07 07:33 | XMS_ITS | Referral Summary ---
Author Organization [facility] al Address [address] [place] [address] Care Team Providers Care Residential Sales Manager Name Role Phone Blair Galo MD Primary Care Provide r Ab Kline MD Unavailable [phone] Rosa Maria Rachel NP Unavailable Encounters Date Type Department Care Team Description 08/13/2024 Telephone [facility] Medical Group Cardiology [address] [place] [address] Rosa Maria Rachel NP from Last 3 Months Allergies Active Allergy Reactions Criticality Noted Date Comments Zryqiji-Xhh-Sdd Reductase Inhibitors Nausea & Vomiting,Fatigue Low 04/27/2023 Medications levothyroxine (SYNTHROID) 100 mcg tablet Take 1 tablet (100 mcg total) by mouth petroleum products district supervisor before breakfast Active ezetimibe (ZETIA) 10 mg [...] malnutrition 04/29/2023 Coronary artery disease invo lving [place] coronary artery of [place] heart without angina pectoris 04/27/2023 Social History Tobacco Use Types Packs/Day Years Used Date Smoking Tobacco: Former Cigarettes 1 60 S tarted: [birth year]/21/1960 Smokeless Tobacco: Never Zipmentsities Answer Date Recorded In the past 12 months has [employer], [employer], or water [employer] threatened to shut off services in your [...] any clubs o r organizations such as uatsdin groups, unions, fraternal or athletic groups, or [...] place to sleep or slept in a halfway (including now)? No 05/01/2023 Personal Safety Answer [...] Comments Blood Pressure 124/70 02/02/2024 9:48 AM HALL CLEANER Pulse 44 02/02/2024 9:48 AM HALL CLEANER Temperature 37.2 C (98.9 F) 05/03/2023 4:17 PM CDT Respiratory Rate 16 09/07/2023 10:49 AM CDT Oxygen Saturation 93% 02/02/2024 9:48 AM HALL CLEANER Inhaled Oxygen Concentration - - Weight 50.9 kg (112 lb 4.8 oz) 02/02/2024 9:48 A M HALL CLEANER Height 152.4 cm (5') 02/02/2024 9:48 AM HALL CLEANER Body Mass Index 21.93 02/02/2024 9:48 AM HALL CLEANER Plan of Treatment Not on file Insurance [facility] MEDICARE [facility] MEDIC[facility] Advance Directives For more information, please contact: [phone] * Full Code (Latest Code Status on File) Date Activated Date Inactivated Comments 04/27/2023 4:44 PM 05/03/2023 9:48 PM Care Teams Residential Sales Manager Relationship Specialty Start Date End Date Blair Gaol MD [address] [place] [address] PCP - General Emergency Medicine 04/26/23 Ab Kline MD [address] [place] [address] Surgeon Cardiothoracic Surgery 05/03/23 Rosa Maria Rachel NP [address] [facility] [address] [facility] [address] [place] [address] Nurse Practitioner Cardiovascular Disease 05/03/23
== END 2024-09-07 08:21 | disposition home or self-care (01) ==
PROVIDERS: Emergency Provider Emergency Medicine; PCP Emergency Medicine
DX: S61.412A Laceration without foreign body of left hand, initial encounter (principal); W45.8XXA Other foreign body or object entering through skin, initial encounter; Z79.01 Long term (current) use of anticoagulants; I10 Essential (primary) hypertension; E03.9 Hypothyroidism, unspecified; E55.9 Vitamin D deficiency, unspecified; E11.9 Type 2 diabetes mellitus without complications; Z87.891 Personal history of nicotine dependence; Z79.82 Long term (current) use of aspirin
CPT/HCPCS: 99282

== ENCOUNTER 2024-09-08 15:58 | Emergency (ER) | payer MEDICARE, SELFPAY ==
--- OUTSIDE RECORDS SUMMARY | 2024-09-08 16:00 | XMS_ITS | Referral Summary ---
Author Organization [facility] al Address [address] [place] [address] Care Team Providers Care Staff Physician Name Role Phone Blair Galo MD Primary Care Provide r Ab Kline MD Unavailable [phone] Rosa Maria Rachel NP Unavailable Encounters Date Type Department Care Team Description 08/13/2024 Telephone [facility] Medical Group Cardiology [address] [place] [address] Rosa Maria Rachel NP from Last 3 Months Allergies Active Allergy Reactions Criticality Noted Date Comments Qcgappt-Rid-Ehy Reductase Inhibitors Nausea & Vomiting,Fatigue Low 04/27/2023 Medications levothyroxine (SYNTHROID) 100 mcg tablet Take 1 tablet (100 mcg total) by mouth manager biostatistics before breakfast Active ezetimibe (ZETIA) 10 mg [...] malnutrition 04/29/2023 Coronary artery disease invo lving [place] coronary artery of [place] heart without angina pectoris 04/27/2023 Social History Tobacco Use Types Packs/Day Years Used Date Smoking Tobacco: Former Cigarettes 1 60 S tarted: 02/21/1960 Smokeless Tobacco: Never Sport Universal Processities Answer Date Recorded In the past 12 months has [employer], [employer], or water [employer] threatened to shut off services in your [...] often do you attend chur ch or evangelical services? Never 05/01/2023 Do you belong to any clubs o r organizations such as synagogue groups, unions, fraternal or athletic groups, or [...] place to sleep or slept in a fci (including now)? No 05/01/2023 Personal Safety Answer [...] Comments Blood Pressure 124/70 02/02/2024 9:48 AM MARINE GEOLOGIST Pulse 44 02/02/2024 9:48 AM MARINE GEOLOGIST Temperature 37.2 C (98.9 F) 05/03/2023 4:17 PM CDT Respiratory Rate 16 09/07/2023 10:49 AM CDT Oxygen Saturation 93% 02/02/2024 9:48 AM MARINE GEOLOGIST Inhaled Oxygen Concentration - - Weight 50.9 kg (112 lb 4.8 oz) 02/02/2024 9:48 A M MARINE GEOLOGIST Height 152.4 cm (5') 02/02/2024 9:48 AM MARINE GEOLOGIST Body Mass Index 21.93 02/02/2024 9:48 AM MARINE GEOLOGIST Plan of Treatment Not on file Insurance [facility] MEDICARE [facility] MEDIC[facility] Advance Directives For more information, please contact: [phone] * Full Code (Latest Code Status on File) Date Activated Date Inactivated Comments 04/27/2023 4:44 PM 05/03/2023 9:48 PM Care Teams Staff Physician Relationship Specialty Start Date End Date Blair Galo MD [address] [place] [address] PCP - General Emergency Medicine 04/26/23 Ab Kline MD [address] [place] [address] Surgeon Cardiothoracic Surgery 05/03/23 Rosa Maria Rachel NP [address] [facility] [address] [facility] [address] [place] [address] Nurse Practitioner Cardiovascular Disease 05/03/23
--- OUTSIDE RECORDS SUMMARY | 2024-09-08 16:00 | XMS_ITS | Clinical Summary ---
Author Organization [facility] al Address [address] [place] [address] Care Team Providers Care Cooling Pan Tender Name Role Phone Blair Galo MD Primary Care Provide r Ab Kline MD Unavailable [phone] Rosa Maria Rachel NP Unavailable Allergies Active Allergy Reactions Criticality Noted Date Comments Vlmvoig-Gnh-Bkx Reductase Inhibitors Nausea & Vomiting,Fatigue Low 04/27/2023 Medications levothyroxine (SYNTHROID) 100 mcg tablet Take 1 tablet (100 mcg total) by mouth early childhood teacher before breakfast Active ezetimibe (ZETIA) 10 mg [...] malnutrition 04/29/2023 Coronary artery disease invo lving [place] coronary artery of [place] heart without angina pectoris 04/27/2023 Encounters Date Type Department Care Team Description 08/13/2024 Telephone [facility] Medical Group Cardiology [address] [facility] [address] [place] [address] Rosa Maria Rachel NP from [...] 60 S tarted: 02/21/1960 Smokeless Tobacco: Never [facility] comment.comities Answer Date Recorded In the past 12 [...] often do you attend chur ch or advent services? Never 05/01/2023 Do you belong to any clubs o r organizations such as oriental orthodox groups, unions, fraternal or athletic groups, or [...] place to sleep or slept in a correction (including now)? No 05/01/2023 Personal Safety Answer [...] Comments Blood Pressure 124/70 02/02/2024 9:48 AM SUBPOENA SERVER Pulse 44 02/02/2024 9:48 AM SUBPOENA SERVER Temperature 37.2 C (98.9 F) 05/03/2023 4:17 PM CDT Respiratory Rate 16 09/07/2023 10:49 AM CDT Oxygen Saturation 93% 02/02/2024 9:48 AM SUBPOENA SERVER Inhaled Oxygen Concentration - - Weight 50.9 kg (112 lb 4.8 oz) 02/02/2024 9:48 A M SUBPOENA SERVER Height 152.4 cm (5') 02/02/2024 9:48 AM SUBPOENA SERVER Body Mass Index 21.93 02/02/2024 9:48 AM SUBPOENA SERVER Plan of Treatment Health Maintenance Due Date Last Done Comments Depression Screening 1945 Hepatitis C Screening 1945 Osteoporosis Screening-Bone Density Scan 1945 DTaP/Tdap/Td Vaccine (1 - Tdap) 09/19/1958 Hepatitis B Screening 09/19/1965 Pneumococcal vaccine 65+ (1 of 1 - PCV) 09/19/1997 Zoster Vaccine (1 of 2) 09/19/1997 Well Visit 65+ 09/19/2012 Fall Risk Assessment 05/02/2024 05/03/2023 Influenza Vaccine (#1) 2024 Insurance [facility] MED[facility]ARE [facility] Advance Directives For more information, please contact: [phone] * Full Code (Latest Code Status on File) Date Activated Date Inactivated Comments 04/27/2023 4:44 PM 05/03/2023 9:48 PM Care Teams Cooling Pan Tender Relationship Specialty Start Date End Date Blair Galo MD [address] [place] [address] PCP - General Emergency Medicine 04/26/23 Ab Kline MD [address] [place] [address] Surgeon Cardiothoracic Surgery 05/03/23 Rosa Maria Rachel NP [address] [facility] [address] [place] [address] Nurse Practitioner Cardiovascular Disease 05/03/23
[2024-09-08 16:06] VITALS: BP 157/126; PULSE 74; RESP 12; TEMP 36.6; O2SAT 99
--- OUTSIDE RECORDS SUMMARY | 2024-09-08 18:00 | XMS_ITS | Referral Summary ---
Author Organization [facility] al Address [address] [place] [address] Care Team Providers Care Awake Overnight Monitor Name Role Phone Blair Galo MD Primary Care Provide r Ab Kline MD Unavailable [phone] Rosa Maria Rachel NP Unavailable Encounters Date Type Department Care Team Description 08/13/2024 Telephone [facility] Medical Group Cardiology [address] [place] [address] Rosa Maria Rachel NP from Last 3 Months Allergies Active Allergy Reactions Criticality Noted Date Comments Jtthoqw-Fiz-Tve Reductase Inhibitors Nausea & Vomiting,Fatigue Low 04/27/2023 Medications levothyroxine (SYNTHROID) 100 mcg tablet Take 1 tablet (100 mcg total) by mouth straightener gun parts before breakfast Active ezetimibe (ZETIA) 10 mg [...] malnutrition 04/29/2023 Coronary artery disease invo lving [place] coronary artery of [place] heart without angina pectoris 04/27/2023 Social History Tobacco Use Types Packs/Day Years Used Date Smoking Tobacco: Former Cigarettes 1 60 S tarted: 02/21/1960 Smokeless Tobacco: Never Tinman Artsities Answer Date Recorded In the past 12 months has [employer], [employer], or water [employer] threatened to shut off services in your [...] often do you attend chur ch or yazidism services? Never 05/01/2023 Do you belong to any clubs o r organizations such as restorationism groups, unions, fraternal or athletic groups, or [...] place to sleep or slept in a jail (including now)? No 05/01/2023 Personal Safety Answer [...] Comments Blood Pressure 124/70 02/02/2024 9:48 AM BEATER ENGINEER Pulse 44 02/02/2024 9:48 AM BEATER ENGINEER Temperature 37.2 C (98.9 F) 05/03/2023 4:17 PM CDT Respiratory Rate 16 09/07/2023 10:49 AM CDT Oxygen Saturation 93% 02/02/2024 9:48 AM BEATER ENGINEER Inhaled Oxygen Concentration - - Weight 50.9 kg (112 lb 4.8 oz) 02/02/2024 9:48 A M BEATER ENGINEER Height 152.4 cm (5') 02/02/2024 9:48 AM BEATER ENGINEER Body Mass Index 21.93 02/02/2024 9:48 AM BEATER ENGINEER Plan of Treatment Not on file Insurance [facility] MEDICARE [facility]IC[facility] Advance Directives For more information, please contact: [phone] * Full Code (Latest Code Status on File) Date Activated Date Inactivated Comments 04/27/2023 4:44 PM 05/03/2023 9:48 PM Care Teams Awake Overnight Monitor Relationship Specialty Start Date End Date Blair Galo MD [address] [place] [address] PCP - General Emergency Medicine 04/26/23 Ab Kline MD [address] [place] [address] Surgeon Cardiothoracic Surgery 05/03/23 Rosa Maria Rachel NP [address] [facility] [address] [facility] [address] [place] [address] Nurse Practitioner Cardiovascular Disease 05/03/23
--- OUTSIDE RECORDS SUMMARY | 2024-09-08 18:00 | XMS_ITS | Clinical Summary ---
Author Organization [facility] al Address [address] [place] [address] Care Team Providers Care Guest House Manager Name Role Phone Blair Galo MD Primary Care Provide r Ab Kline MD Unavailable [phone] Rosa Maria Rachel NP Unavailable Allergies Active Allergy Reactions Criticality Noted Date Comments Usgtsbo-Tbq-Ltm Reductase Inhibitors Nausea & Vomiting,Fatigue Low 04/27/2023 Medications levothyroxine (SYNTHROID) 100 mcg tablet Take 1 tablet (100 mcg total) by mouth washing tub operator before breakfast Active ezetimibe (ZETIA) 10 mg [...] malnutrition 04/29/2023 Coronary artery disease invo lving [place] coronary artery of [place] heart without angina pectoris 04/27/2023 Encounters Date Type Department Care Team Description 08/13/2024 Telephone [facility] Medical Group Cardiology [address] [facility] [address] [place] [address] Rosa Maria Rachel NP from [...] 60 S tarted: 02/21/1960 Smokeless Tobacco: Never [facility] VISEOities Answer Date Recorded In the past 12 [...] often do you attend chur ch or druze services? Never 05/01/2023 Do you belong to any clubs o r organizations such as sabianist groups, unions, fraternal or athletic groups, or [...] Comments Blood Pressure 124/70 02/02/2024 9:48 AM LOG SORTER Pulse 44 02/02/2024 9:48 AM LOG SORTER Temperature 37.2 C (98.9 F) 05/03/2023 4:17 PM CDT Respiratory Rate 16 09/07/2023 10:49 AM CDT Oxygen Saturation 93% 02/02/2024 9:48 AM LOG SORTER Inhaled Oxygen Concentration - - Weight 50.9 kg (112 lb 4.8 oz) 02/02/2024 9:48 A M LOG SORTER Height 152.4 cm (5') 02/02/2024 9:48 AM LOG SORTER Body Mass Index 21.93 02/02/2024 9:48 AM LOG SORTER Plan of Treatment Health Maintenance Due Date Last Done Comments Depression Screening 1945 Hepatitis C Screening 1945 Osteoporosis Screening-Bone Density Scan 1945 DTaP/Tdap/Td Vaccine (1 - Tdap) 09/19/1958 Hepatitis B Screening 09/19/1965 Pneumococcal vaccine 65+ (1 of 1 - PCV) 09/19/1997 Zoster Vaccine (1 of 2) 09/19/1997 Well Visit 65+ 09/19/2012 Fall Risk Assessment 05/02/2024 05/03/2023 Influenza Vaccine (#1) 2024 Insurance [facility] MEDICARE [facility] MEDIC[facility] Advance Directives For more information, please contact: [phone] * Full Code (Latest Code Status on File) Date Activated Date Inactivated Comments 04/27/2023 4:44 PM 05/03/2023 9:48 PM Care Teams Guest House Manager Relationship Specialty Start Date End Date Blair Galo MD [address] [place] [address] PCP - General Emergency Medicine 04/26/23 Ab Kline MD [address] [place] [address] Surgeon Cardiothoracic Surgery 05/03/23 Rosa Maria Rachel NP [address] [facility] [address] [place] [address] Nurse Practitioner Cardiovascular Disease 05/03/23
--- NOTE | 2024-09-08 18:31 | ED_ITS ---
HPI - General Adult General Chief complaint: Wound/Laceration Stated complaint: SKIN TEAR RECHECK Time Seen by Provider: 09/08/24 17:47 History of Present Illness HPI narrative: 78-year-old female presented to the emergency department for evaluation for persistent oozing from a small skin tear to the dorsum of her left hand. Yesterday patient had Steri-Strips placed and patient states that the wound continued to bleed and the Steri-Strips on all longer in place. Upon arrival emergency department patient has no active bleeding from the wound. Patient did not take her aspirin this morning and patient will hold her Xarelto tonight Related Data Home Medications ?Medication ?Instructions ?Recorded ?Confirmed ?Last Taken ?Type aspirin 81 mg tablet,delayed 81 mg PO .EVERY AFTERNOON 06/21/23 07/02/24 06/23/23 12:00 History release Allergies Allergy/AdvReac Type Severity Reaction Status Date / Time Xgpbeiq-TEE-WsC Reductase Allergy Unknown unknown Verified 09/08/24 17:26 Inhibitor (Pgfwkek-Kzd-Dxf Reductase Inhibitor) Review of Systems Review of Systems: All systems reviewed & are unremarkable except as noted in HPI and below PMFSH Past Medical History Medical History (Updated 09/08/24 @ 18:34 by Costa Thompson MD) Sinus congestion Acute UTI HTN (hypertension), benign Coronary disease Adult hypothyroidism Bilateral leg cramps Chronic back pain Elevated blood pressure reading without diagnosis of hypertension Fatigue Hyperglycemia Other and unspecified hyperlipidemia DM w/o complication type II Vitamin D deficiency Screening cholesterol level Other screening mammogram Depression Surgical History Surgical History 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 No alcohol or drug use. Lives at home with . They have a dog. 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 Smoking packs per day: 1 Smoking cigarettes per day: 20.0 Years smoked: 60 Smoking pack-years: 60.00 Smoking status: Former smoker Tobacco type: cigarettes Second hand tobacco smoke exposure: No Smoking end date: 04/26/23 Alcohol intake: former Substance use: never Substance use type: does not use Do You Feel Safe in your Home?: Yes Lack of Transportation: No Lack of Food: Never True Current Housing: I Have Housing Concerned About Future Housing: No Difficulty Paying Gas/Electric Bills: No Difficulty Paying for Meds: No Currently Unemployed: No Education: Bachelor's Degree Difficulty w/ Childcare or Family Care: No Spiritual care concerns: No Exam Narrative: APPEARANCE: Well appearing, no pain, no distress, well-nourished. HEAD: normocephalic, atraumatic. EYES: PERRLA/EOMI, conjunctivae clear. NOSE: Normal no drainage ABDOMINAL: Soft, nontender, nondistended, normal bowel sounds MUSCULOSKELETAL: Moves all extremities. Strength/ROM intact, No edema, No calf tenderness. NEURO: Alert. Cranial nerves II through XII intact. Good gait. Good coordination SKIN: Skin tear to the left forearm with no active bleeding in the emergency department Course Vital Signs Vital signs: Vital Signs Temperature 97.8 F 09/08/24 16:06 Pulse Rate 74 09/08/24 16:06 Respiratory Rate 12 09/08/24 16:06 Blood Pressure 157/126 H 09/08/24 16:06 Pulse Oximetry 99 09/08/24 16:06 Oxygen Delivery Room Air 09/08/24 16:06 Temperature 97.8 F 09/08/24 16:06 Pulse Rate 74 09/08/24 16:06 Respiratory Rate 12 09/08/24 16:06 Blood Pressure 157/126 H 09/08/24 16:06 Pulse Oximetry 99 09/08/24 16:06 Oxygen Delivery Room Air 09/08/24 16:06 Medical Decision Making [facility] Narrative Medical decision making narrative: 78-year-old female presents emergency department for evaluation for oozing from a skin tear to her left hand. Let was placed on the wound for approximately 30 minutes. Than a Surgicel dressing with minor pressure dressing was also placed. Patient is holding her aspirin and Xarelto. Patient does have history of AFib that is a normal sinus rhythm and is taking sotalol for AFib. Differential Diagnosis Differential Diagnosis: Skin tear Vital Signs Vital Signs: Vital Signs Temperature 97.8 F 09/08/24 16:06 Pulse Rate 74 09/08/24 16:06 Respiratory Rate 12 09/08/24 16:06 Blood Pressure 157/126 H 09/08/24 16:06 Pulse Oximetry 99 09/08/24 16:06 Oxygen Delivery Room Air 09/08/24 16:06 Temperature 97.8 F 09/08/24 16:06 Pulse Rate 74 09/08/24 16:06 Respiratory Rate 12 09/08/24 16:06 Blood Pressure 157/126 H 09/08/24 16:06 Pulse Oximetry 99 09/08/24 16:06 Oxygen Delivery Room Air 09/08/24 16:06 Discharge Plan Discharge Clinical Impression: Skin tear Patient Disposition: Home Condition: Stable Instructions: Antibiotic Form, Skin Tear (ED) Additional Instructions: Keep the Surgicel dressing in place for at least 12 hours. Change the dressing tomorrow. Keep wound dry for 24 hours. Have close follow-up with your primary care physician Patient Language: Korean Prescriptions: No Action Xarelto 20 mg tablet 20 mg PO DAILY@1700 Qty: 30 3RF aspirin 81 mg tablet,delayed release (DR/EC) 81 mg PO .EVERY AFTERNOON sotalol 80 mg tablet 40 mg PO BID Qty: 30 1RF ezetimibe [Zetia] 10 mg tablet 10 mg PO QAM Qty: 90 2RF levothyroxine [Synthroid] 75 mcg tablet 75 mcg PO DAILY Qty: 90 2RF Follow-up/Referrals: Blair Galo MD [Primary Care Provider] -
== END 2024-09-08 18:58 | disposition home or self-care (01) ==
PROVIDERS: Emergency Provider Emergency Medicine; PCP Emergency Medicine
DX: S61.412A Laceration without foreign body of left hand, initial encounter (principal); I48.91 Unspecified atrial fibrillation; I10 Essential (primary) hypertension; I25.10 Atherosclerotic heart disease of native coronary artery without angina pectoris; E03.9 Hypothyroidism, unspecified; E55.9 Vitamin D deficiency, unspecified; E78.5 Hyperlipidemia, unspecified; E11.9 Type 2 diabetes mellitus without complications; Z95.1 Presence of aortocoronary bypass graft; Z87.891 Personal history of nicotine dependence; Z87.440 Personal history of urinary (tract) infections; Z79.01 Long term (current) use of anticoagulants; Z79.899 Other long term (current) drug therapy; Z79.82 Long term (current) use of aspirin; X58.XXXA Exposure to other specified factors, initial encounter
CPT/HCPCS: 99283

== ENCOUNTER 2025-02-10 14:45 | Outpatient (RCR) | payer MEDICARE, SELFPAY ==
--- NOTE | 2025-01-07 10:48 | PTOPEVAL1 ---
Assessment and note entered by Lindsey Muñoz, PT Evaluation Information Assessment Status Evaluation ICD-10 Condition Codes (PT) Difficulty Walking R26.2,Abnormalities of gait and mobility R26.9,Weakness R53.1 Onset 04/2023 Subjective Information Pt reports worst issue is walking on uneven ground feels unstable and sometimes with getting up sometimes can't just go. States after triple bypass felt really good, then got a-fib and now is medicated and controlling the a-fib but is not as strong as when first got home . Pt feels [place], can walk on the neighborhood once. Reports if sitting long periods, where her chair hits bothers the backs of her legs. Pt goals Would like to be able to get up out of the bathtub or shower with a bar, or going up steps has to pull herself with the railing. Would like to work on her endurance to be able to go shopping for the day. Reported Pain Level Pain Score 0: Self Report Assessment PT Clinical Summary Pt presents with weakness, reported difficulty with walking on unlevel surfaces, and difficulty with walking up steps from her basement without increased use of her UEs. She states she wants to be able to be as active as she was previously. Pt demonstrates decreased LE strength especially of the gastrocs and anterior tibialis, tight gastrocs effecting her ankle mobility and balance on unstable surfaces, and decreased endurance overall . Pt will benefit from physical therapy to address deficits, improve endurance, and increase patient functional independence to meet her activity goals. Plan of Care Interventions Gait Training,Neuro Re-education,Patient/Caregiver Education,Therapeutic Activities,Therapeutic Exercise,Self-Care/Home Management PT Services Indicated Yes Treatment Frequency and 2x weekly x 20 visits Duration These treatments will address the objective and functional deficits as defined above. The patient will be advanced safely and appropriately in order for the patient to progress towards his/her prior level of function. Additional exercises will be introduced and as well as a comprehensive home exercise program upon discharge, if needed, ?to ensure carryover of functional gains achieved in the clinic. This treatment plan has been reviewed and agreement upon by the patient.
--- NOTE | 2025-01-07 10:48 | OPREHPOC ---
Outpatient Therapy Plan of Care This is a Multidisciplinary Plan of Care that may contain components documented by all disciplines (PT, OT, and ST.) PT Problem 1 PT Problem #1 Knowledge Deficit PT Goal 1 Goal / Goal Update Pt will be independent in HEP Pt will verbalize understanding of diagnosis and prognosis Target Visit 10 PT Problem 2 PT Problem #2 Impaired Flexibility PT Goal 1 Goal / Goal Update Pt will demonstrate only mild decreased flexibility of gastrocs for improved ROM for ambulation Target Visit 10 PT Problem 3 PT Problem #3 Impaired Strength PT Goal 1 Goal / Goal Update Pt will demonstrate anterior tibialis strength of 4/5 for improved mobility Target Visit 10 PT Goal 2 Goal / Goal Update Pt will demonstrate 4+/5 strength in all tested planes Target Visit 20
--- NOTE | 2025-02-10 15:20 | OPREHPOC ---
Outpatient Therapy Plan of Care This is a Multidisciplinary Plan of Care that may contain components documented by all disciplines (PT, OT, and ST.) PT Problem 1 PT Problem #1 Knowledge Deficit PT Goal 1 Goal / Goal Update Pt will be independent in HEP Pt will verbalize understanding of diagnosis and prognosis 02-10-25 d/c goals met Target Visit 10 Progress Met PT Problem 2 PT Problem #2 Impaired Flexibility PT Goal 1 Goal / Goal Update Pt will demonstrate only mild decreased flexibility of gastrocs for improved ROM for ambulation 02-10-25 d/c goal met Target Visit 10 Progress Met PT Problem 3 PT Problem #3 Impaired Strength PT Goal 1 Goal / Goal Update Pt will demonstrate anterior tibialis strength of 4/5 for improved mobility 02-10-25 d/c goal met Target Visit 10 Progress Met PT Goal 2 Goal / Goal Update Pt will demonstrate 4+/5 strength in all tested planes 02-10-25 d/c goal met Target Visit 20 Progress Met
--- NOTE | 2025-02-10 15:20 | PTOPDC ---
Assessment and note entered by Zaira Baires, PT Assessment Status Discharge ICD-10 Condition Codes (PT) Difficulty Walking R26.2,Abnormalities of gait and mobility R26.9,Weakness R53.1 Onset 04/2023 Subjective Information doing well, been busy with son and family at my home for the past week; no falls; been doing all the exercises at home; doing shopping and cooking ; on the basement stairs, just barely pull with my arm- just touched the rail; Reported Pain Level Pain Score 0: Self Report Assessment PT Clinical Summary Carmina has received 8 PT sessions. With today's assessment: no pain reported; reports she has returned to her normal activity level with home activities and shopping; 2 minute walking test distance of 420'; gross strength of R and L LE is 4+/5; 12 steps with alternating step pattern and no railing; education completed for HEP. The goals were achieved. Discharge PT services. She is to continue with HEP and increase activity as tolerated. Plan of Care PT Services Indicated No
== END 2025-02-10 16:59 | disposition home or self-care (01) ==
LOC: ANHPT 14:45
PROVIDERS: PCP Emergency Medicine; Visit Provider Emergency Medicine
DX: R53.81 Other malaise (principal)
CPT/HCPCS: 97110; 97112; 97161; 97530